=== PATIENT | female | born 1980 | race African-American/Black ===

== ENCOUNTER 2016-08-01 07:29 | Emergency (ER) | payer OTHER ==
[2016-08-01] MEDS ORDERED: ACETAMINOPHEN WITH CODEINE #3 TABLET PO ONE (08:48)
--- NOTE | 2016-08-01 08:48 | ER Document Report ---
ED General - General Chief Complaint: Back Pain Stated Complaint: SIDE PAIN Mode of Arrival: Ambulatory Information source: Patient Notes: 28-year-old female history of kidney stone presents with complaints of left flank pain rating to her abdomen down her leg. Patient denies any fevers chills nausea vomiting or diarrhea. Patient denies any urinary complaints. Patient notes this is similar to her previous kidney stone diagnosed in March which she states she has not passed TRAVEL OUTSIDE OF THE [place] IN LAST 30 DAYS: No - HPI Onset: Other - Three-day duration Onset/Duration: Sudden, Persistent Quality of pain: Sharp Severity: Mild Pain Level: 1 Associated symptoms: Other Exacerbated by: Denies Relieved by: Denies Similar symptoms previously: Yes Recently seen / treated by doctor: No - Related Data Allergies/Adverse Reactions: hydrocodone Allergy (Verified 08/01/16 07:32) tramadol Allergy (Verified 08/01/16 07:32) Past Medical History - General Information source: Patient - Social History Smoking Status: Never Smoker Cigarette use (# per day): No Chew tobacco use (# tins/day): No Smoking Education Provided: No Frequency of alcohol use: None Drug Abuse: None Family History: Reviewed & Not Pertinent Patient has suicidal ideation: No Patient has homicidal ideation: No - Past Medical History Cardiac Medical History: Reports: Hx Hypercholesterolemia, Hx Hypertension - Has been off medication for the past 7 months per her doctor's instructions Endocrine Medical History: Reports: Hx Diabetes Mellitus Type 2 Renal/ Medical History: Reports: Hx Kidney Stones Past Surgical History: Reports: Hx Cholecystectomy, Hx Gynecologic Surgery - Uterine ablation - Immunizations Hx Diphtheria, Pertussis, Tetanus Vaccination: Yes Review of Systems - Review of Systems Notes: REVIEW OF SYSTEMS: CONSTITUTIONAL : Denies fever, chills, or sweats. Denies recent illness. EENT: Denies eye, ear, throat, or mouth pain or symptoms. Denies nasal or sinus congestion or discharge. Denies throat, tongue, or mouth swelling or difficulty swallowing. CARDIOVASCULAR: Denies chest pain. Denies palpitations or racing or irregular heart beat. Denies ankle edema. RESPIRATORY: Denies cough, cold, or chest congestion. Denies shortness of breath, difficulty breathing, or wheezing. GASTROINTESTINAL: Admits to abdominal and flank pain GENITOURINARY: Denies difficulty urinating, painful urination, burning, frequency, blood in urine, or discharge. FEMALE GENITOURINARY: Denies vaginal bleeding, heavy or abnormal periods, irregular periods. Denies vaginal discharge or odor. MUSCULOSKELETAL: Denies back or neck pain or stiffness. Denies joint pain or swelling. SKIN: Denies rash, lesions or sores. HEMATOLOGIC : Denies easy bruising or bleeding. LYMPHATIC: Denies swollen, enlarged glands. NEUROLOGICAL: Denies confusion or altered mental status. Denies passing out or loss of consciousness. Denies dizziness or lightheadedness. Denies headache. Denies weakness or paralysis or loss of use of either side. Denies problems with gait or speech. Denies sensory loss, numbness, or tingling. Denies seizures. PSYCHIATRIC: Denies anxiety or stress. Denies depression, suicidal ideation, or homicidal ideation. ALL OTHER SYSTEMS REVIEWED AND NEGATIVE. Dictation was performed using [employer] voice recognition software PHYSICAL EXAMINATION: GENERAL: Well-appearing, well-nourished and in no acute distress. HEAD: Atraumatic, normocephalic. EYES: Pupils equal round and reactive to light, extraocular movements intact, conjunctiva are normal. ENT: Nares patent, oropharynx clear without exudates. Moist mucous membranes. NECK: Normal range of motion, supple without lymphadenopathy LUNGS: Breath sounds clear to auscultation bilaterally and equal. No wheezes rales or rhonchi. HEART: Tachycardic ABDOMEN: Soft, left CVA tenderness noted no rebound or guarding Female : deferred Musculoskeletal: Normal range of motion, no pitting or edema. No cyanosis. NEUROLOGICAL: Cranial nerves grossly intact. Normal speech, normal gait. Normal sensory, motor exams PSYCH: Normal mood, normal affect. SKIN: Warm, Dry, normal turgor, no rashes or lesions noted. Physical Exam - Vital signs Vitals: Temp Pulse Resp BP Pulse Ox 98.7 F 128 H 16 138/97 H 99 08/01/16 07:34 08/01/16 07:34 08/01/16 07:34 08/01/16 07:34 08/01/16 07:34 Course - Re-evaluation Re-evalutation: 08/01/16 08:48 Lab work imaging are pending at this time - Vital Signs Vital signs: Temp Pulse Resp BP Pulse Ox 98.0 F 104 H 18 124/67 99 08/01/16 09:58 08/01/16 09:58 08/01/16 09:58 08/01/16 09:58 08/01/16 09:58 - Laboratory Result Diagrams: 08/01/16 09:00 08/01/16 09:00 Laboratory results interpreted by me: 08/01/16 08/01/16 08/01/16 08:16 09:00 09:00 WBC 12.7 H Hgb 11.1 L Hct 34.3 L MCH 26.5 L RDW 14.8 H Absolute Neutrophils 9.5 H Glucose 156 H Urine Glucose (UA) >=500 H Urine Ketones 20 H Urine Blood MODERATE H Discharge - Discharge Clinical Impression: Kidney stone on left side, Flank pain Condition: Stable Disposition: HOME, SELF-CARE Instructions: Kidney Stone ([facility]) Prescriptions: Oxycodone HCl/Acetaminophen [Percocet 5-325 mg Tablet] 1 - 2 tab PO Q4H PRN #10 tablet PRN Reason: Tamsulosin HCl [Flomax 0.4 mg Cap.sr] 0.4 mg PO DAILY #7 cap.sr.24h Referrals: SONU GONZALES PA-C [Primary Care Provider] - Follow up as needed MADHU IBRAHIM MD [ACTIVE STAFF] - Follow up in 1 week
[2016-08-01 09:19] LABS: ABSOLUTE EOSINOPHILS # (AUTO) 0.1 10^3/uL (0.0-0.6); ABSOLUTE LYMPHOCYTES (AUTO) 2.4 10^3/uL (0.5-4.7); ABSOLUTE MONOCYTES (AUTO) 0.7 10^3/uL (0.1-1.4); ABSOLUTE NEUT (AUTO) 9.5 10^3/uL (1.7-8.2); BASOPHILS % (AUTO) 0.4 % (0-2); EOSINOPHILS % (AUTO) 0.9 % (0-6); HEMATOCRIT 34.3 % (36.0-47.0); HEMOGLOBIN 11.1 g/dL (12.0-15.5); LYMPHOCYTES % (AUTO) 18.9 % (13-45); MEAN CORPUSCULAR HEMOGLOBIN 26.5 pg (27.0-33.4); MEAN CORPUSCULAR HGB CONC 32.5 g/dL (32.0-36.0); MEAN CORPUSCULAR VOLUME 81 fl (80-97); MONOCYTES % (AUTO) 5.5 % (3-13); RED BLOOD COUNT 4.21 10^6/uL (3.72-5.28); RED CELL DISTRIBUTION WIDTH 14.8 % (11.5-14.0); SEGMENTED NEUTROPHILS % (AUTO) 74.3 % (42-78); WHITE BLOOD COUNT 12.7 10^3/uL (4.0-10.5)
[2016-08-01 09:29] LABS: APPEARANCE,URINE CLEAR; BILIRUBIN,URINE NEGATIVE (NEGATIVE); GLUCOSE, URINE >=500 mg/dL (NEGATIVE); KETONES,URINE 20 mg/dL (NEGATIVE); LEUKOCYTE ESTERASE,URINE NEGATIVE (NEGATIVE); NITRITE,URINE NEGATIVE (NEGATIVE); PROTEIN,URINE NEGATIVE (NEGATIVE); URINE SPECIFIC GRAVITY 1.045; UROBILINOGEN,URINE NEGATIVE mg/dL (<2.0)
[2016-08-01 09:41] LABS: ALANINE AMINOTRANSFERASE 34 U/L (9-52); ALBUMIN 4.4 g/dL (3.5-5.0); ALKALINE PHOSPHATASE 86 U/L (38-126); ANION GAP 16 (5-19); ASPARTATE AMINO TRANSFERASE 19 U/L (14-36); BILIRUBIN,TOTAL 0.4 mg/dL (0.2-1.3); BLOOD UREA NITROGEN 13 mg/dL (7-20); CALCIUM 9.7 mg/dL (8.4-10.2); CARBON DIOXIDE 25 mmol/L (22-30); CHLORIDE 101 mmol/L (98-107); CREATININE RESULT 0.82 mg/dL (0.52-1.25); GLUCOSE 156 mg/dL (75-110); LIPASE 76.7 U/L (23-300); POTASSIUM 3.8 mmol/L (3.6-5.0); SODIUM 142.1 mmol/L (137-145)
[2016-08-01 12:58] VITALS: BP 141/90
== END 2016-08-01 12:58 | disposition home or self-care (01) ==
LOC: ER 07:29
DX: N20.0 Calculus of kidney (principal); M54.9 Dorsalgia, unspecified; R10.9 Unspecified abdominal pain; E78.00 Pure hypercholesterolemia, unspecified; I10 Essential (primary) hypertension; E11.9 Type 2 diabetes mellitus without complications; Z87.442 Personal history of urinary calculi; Z88.6 Allergy status to analgesic agent
CPT/HCPCS: 36415; 76380; 80053; 81001; 81025; 83690; 85025; 99284

== ENCOUNTER 2016-09-06 16:26 | Emergency (ER) | payer OTHER ==
--- NOTE | 2016-09-06 17:12 | ER Document Report ---
ED Medical Screen (RME) - General Stated Complaint: FLANK PAIN Notes: 36 yo female c/o bilat flank pain x 3 days. + known kidney stone on left. no n /v. no fever. pain is nonradiating. no urinary frequency. TRAVEL OUTSIDE OF THE [place] IN LAST 30 DAYS: No - Related Data Allergies/Adverse Reactions: hydrocodone Allergy (Verified 08/01/16 07:32) tramadol Allergy (Verified 08/01/16 07:32) Past Medical History - Past Medical History Cardiac Medical History: Reports: Hx Hypercholesterolemia, Hx Hypertension - Has been off medication for the past 7 months per her doctor's instructions Endocrine Medical History: Reports: Hx Diabetes Mellitus Type 2 Renal/ Medical History: Reports: Hx Kidney Stones Past Surgical History: Reports: Hx Cholecystectomy, Hx Gynecologic Surgery - Uterine ablation - Immunizations Hx Diphtheria, Pertussis, Tetanus Vaccination: Yes Physical Exam - Vital signs Vitals: Temp Pulse Resp BP Pulse Ox 97.9 F 98 20 154/98 H 98 09/06/16 17:07 09/06/16 17:07 09/06/16 17:07 09/06/16 17:07 09/06/16 17:07 Course - Vital Signs Vital signs: Temp Pulse Resp BP Pulse Ox 97.9 F 98 20 154/98 H 98 09/06/16 17:07 09/06/16 17:07 09/06/16 17:07 09/06/16 17:07 09/06/16 17:07
[2016-09-06 17:43] LABS: ABSOLUTE EOSINOPHILS # (AUTO) 0.2 10^3/uL (0.0-0.6); ABSOLUTE LYMPHOCYTES (AUTO) 3.4 10^3/uL (0.5-4.7); ABSOLUTE MONOCYTES (AUTO) 0.9 10^3/uL (0.1-1.4); ABSOLUTE NEUT (AUTO) 9.3 10^3/uL (1.7-8.2); BASOPHILS % (AUTO) 0.3 % (0-2); EOSINOPHILS % (AUTO) 1.4 % (0-6); HEMATOCRIT 31.1 % (36.0-47.0); HEMOGLOBIN 9.8 g/dL (12.0-15.5); HGB HCT DIFFERENCE -1.7; LYMPHOCYTES % (AUTO) 24.2 % (13-45); MEAN CORPUSCULAR HEMOGLOBIN 24.8 pg (27.0-33.4); MEAN CORPUSCULAR HGB CONC 31.4 g/dL (32.0-36.0); MEAN CORPUSCULAR VOLUME 79 fl (80-97); MONOCYTES % (AUTO) 6.8 % (3-13); RED BLOOD COUNT 3.93 10^6/uL (3.72-5.28); RED CELL DISTRIBUTION WIDTH 15.1 % (11.5-14.0); SEGMENTED NEUTROPHILS % (AUTO) 67.3 % (42-78); WHITE BLOOD COUNT 13.8 10^3/uL (4.0-10.5)
[2016-09-06 17:52] LABS: APPEARANCE,URINE CLEAR; BILIRUBIN,URINE NEGATIVE (NEGATIVE); GLUCOSE, URINE >=500 mg/dL (NEGATIVE); KETONES,URINE NEGATIVE (NEGATIVE); LEUKOCYTE ESTERASE,URINE NEGATIVE (NEGATIVE); NITRITE,URINE NEGATIVE (NEGATIVE); PROTEIN,URINE NEGATIVE (NEGATIVE); URINE SPECIFIC GRAVITY 1.032; UROBILINOGEN,URINE NEGATIVE mg/dL (<2.0)
[2016-09-06 18:06] LABS: ALANINE AMINOTRANSFERASE 25 U/L (9-52); ALBUMIN 4.8 g/dL (3.5-5.0); ALKALINE PHOSPHATASE 88 U/L (38-126); ANION GAP 11 (5-19); ASPARTATE AMINO TRANSFERASE 18 U/L (14-36); BILIRUBIN,TOTAL 0.4 mg/dL (0.2-1.3); BLOOD UREA NITROGEN 13 mg/dL (7-20); CARBON DIOXIDE 27 mmol/L (22-30); CHLORIDE 103 mmol/L (98-107); CREATININE RESULT 0.85 mg/dL (0.52-1.25); GLUCOSE 96 mg/dL (75-110); POTASSIUM 4.3 mmol/L (3.6-5.0); SODIUM 141.4 mmol/L (137-145); TOTAL PROTEIN 8.1 g/dL (6.3-8.2)
[2016-09-06] MEDS ORDERED: OXYCODONE-ACETAMINOPHEN 5-325 MG TABLET PO ONE (19:55)
--- NOTE | 2016-09-06 19:55 | ER Document Report ---
ED General - General Chief Complaint: Flank Pain Stated Complaint: FLANK PAIN Mode of Arrival: Ambulatory Information source: Patient Notes: Patient presents to the emergency department with complaints of bilateral flank pain for the past 3 days worse today. Denies fever vomiting diarrhea. Reports history of kidney stones. Reports she followed up with urologist in [place] in May and has not followed up since. She denies pain with void. She denies vaginal discharge. Patient reports she is currently taking amoxicillin for strep infection. She was seen here in July diagnosed with kidney stones. TRAVEL OUTSIDE OF THE [place] IN LAST 30 DAYS: No - HPI Onset: Other - 3 days Onset/Duration: Persistent Quality of pain: Achy, Pressure Severity: Severe Pain Level: 4 Associated symptoms: None Exacerbated by: Denies Relieved by: Denies Similar symptoms previously: Yes Recently seen / treated by doctor: No - Related Data Allergies/Adverse Reactions: hydrocodone Allergy (Verified 09/06/16 17:12) tramadol Allergy (Verified 09/06/16 17:12) Past Medical History - General Information source: Patient Last Menstrual Period: 08/29/16 - Social History Smoking Status: Never Smoker Chew tobacco use (# tins/day): No Frequency of alcohol use: None Drug Abuse: None Occupation: correction Lives with: Family Family History: Reviewed & Not Pertinent Patient has suicidal ideation: No Patient has homicidal ideation: No - Past Medical History Cardiac Medical History: Reports: Hx Hypercholesterolemia, Hx Hypertension - Has been off medication for the past 7 months per her doctor's instructions Endocrine Medical History: Reports: Hx Diabetes Mellitus Type 2 Renal/ Medical History: Reports: Hx Kidney Stones. Denies: Hx Peritoneal Dialysis Past Surgical History: Reports: Hx Cholecystectomy, Hx Gynecologic Surgery - Uterine ablation - Immunizations Hx Diphtheria, Pertussis, Tetanus Vaccination: Yes Review of Systems - Review of Systems Notes: Review HPI for review of systems., All other systems negative Physical Exam - Vital signs Vitals: Temp Pulse Resp BP Pulse Ox 97.9 F 98 20 154/98 H 98 09/06/16 17:07 09/06/16 17:07 09/06/16 17:07 09/06/16 17:07 09/06/16 17:07 - Notes Notes: PHYSICAL EXAMINATION: GENERAL: tearful HEAD: Atraumatic, normocephalic. EYES: Pupils equal round extraocular movements intact, sclera anicteric, conjunctiva are normal. ENT: nares patent, . Moist mucous membranes. NECK: Normal range of motion, supple without lymphadenopathy LUNGS: CTAB and equal. No wheezes rales or rhonchi. HEART: Regular rate and rhythm without murmurs BACK: Bilateral flank pain ABDOMEN: Soft, no tenderness. No guarding, no rebound EXTREMITIES: Normal range of motion, no pitting edema. No cyanosis. NEUROLOGICAL: Cranial nerves grossly intact. Normal sensory/motor PSYCH: Normal mood, normal affect. SKIN: Warm, Dry, normal turgor, no rashes or lesions noted Course - Re-evaluation Re-evalutation: 09/06/16 20:17 Dr. Smith the urologist was called. He agreed to see patient in am. Pt and allison updated on plan of care importance of fu. 09/06/16 20:21 wbc 13.8, h/h=9.8/31.1 patient reports hx anemia. Will treat patient with Cipro and Flomax Percocet for the pain and Diflucan because history of yeast infections with antibiotics. Patient and her were instructed on anemia, encouraged to discuss this with her provider and start taking iron - Vital Signs Vital signs: Temp Pulse Resp BP Pulse Ox 97.9 F 98 20 154/98 H 98 09/06/16 17:07 09/06/16 17:07 09/06/16 17:07 09/06/16 17:07 09/06/16 17:07 - Laboratory Result Diagrams: 09/06/16 17:25 09/06/16 17:25 Laboratory results interpreted by me: 09/06/16 09/06/16 17:25 17:30 WBC 13.8 H Hgb 9.8 L Hct 31.1 L MCV 79 L MCH 24.8 L MCHC 31.4 L RDW 15.1 H Plt Count 476 H Absolute Neutrophils 9.3 H Urine Glucose (UA) >=500 H Urine Blood SMALL H - Diagnostic Test Radiology reviewed: Reports reviewed - Kidney stones noted from 08/01/2016 Discharge - Discharge Clinical Impression: Flank pain, History of kidney stones, Elevated blood pressure reading Condition: Stable Disposition: HOME, SELF-CARE Instructions: Flomax ([facility]), Flank Pain ([facility]), Oral Narcotic Medication ([facility]), Kidney Stone ([facility]), Ciprofloxacin ([facility]) Additional Instructions: *You have been evaluated for bilateral flank pain, history of kidney stones *Monitor your blood pressure. Your blood pressure was elevated today. This may be because you were anxious, in pain or because you need medication. It is important to follow up with your primary care provider for full evaluation. *Take medication as prescribed *Follow up with the urologist tomorrow morning, call the clinic at 0800 *Return to ED for worsening condition, changes, needs *Return to ED if not better in 24 hours Prescriptions: Ciprofloxacin HCl [Cipro 500 mg Tablet] 500 mg PO BID #10 tablet Fluconazole [Diflucan 100 Mg Tablet] 100 mg PO DAILY #1 tablet Oxycodone HCl/Acetaminophen [Percocet 5-325 mg Tablet] 1 tab PO ASDIR PRN #15 tab PRN Reason: Tamsulosin HCl [Flomax 0.4 mg Cap.sr] 0.4 mg PO DAILY #7 cap.sr.24h Forms: Elevated Blood Pressure, Return to Work Referrals: DAWOOD SMITH MD [SANDRA ZARAGOZA] - Follow up tomorrow (call for appointment at 0800. Remind office this is an ED follow up appointment)
[2016-09-06] MEDS ORDERED: TAMSULOSIN HCL 0.4 MG CAP.SR.24H PO ONE (20:06)
[2016-09-06 20:53] VITALS: BP 146/80
== END 2016-09-06 20:48 | disposition home or self-care (01) ==
LOC: ER 16:26
DX: R10.9 Unspecified abdominal pain (principal); Z87.442 Personal history of urinary calculi; A49.1 Streptococcal infection, unspecified site; I10 Essential (primary) hypertension; E11.9 Type 2 diabetes mellitus without complications; Z88.5 Allergy status to narcotic agent; Z90.49 Acquired absence of other specified parts of digestive tract
CPT/HCPCS: 36415; 80053; 81001; 84703; 85025; 99284

== ENCOUNTER → 2016-09-08 | Outpatient (CLI) | payer OTHER | LOC: RAD 14:03 | PROVIDERS: ATTEND Urology | DX: N20.0 Calculus of kidney (principal) | CPT/HCPCS: 74176 ==

== ENCOUNTER 2016-09-29 05:19 | Day surgery (SDC) | payer OTHER ==
[2016-09-27 13:59] LABS: HEMOGLOBIN 10.7 g/dL (12.0-15.5); HGB HCT DIFFERENCE -1.9; MEAN CORPUSCULAR HEMOGLOBIN 24.6 pg (27.0-33.4); MEAN CORPUSCULAR HGB CONC 31.3 g/dL (32.0-36.0); MEAN CORPUSCULAR VOLUME 79 fl (80-97); RED BLOOD COUNT 4.34 10^6/uL (3.72-5.28); RED CELL DISTRIBUTION WIDTH 16.1 % (11.5-14.0); WHITE BLOOD COUNT 8.4 10^3/uL (4.0-10.5)
[2016-09-27 14:11] LABS: APPEARANCE,URINE CLEAR; BILIRUBIN,URINE NEGATIVE (NEGATIVE); GLUCOSE, URINE >=500 mg/dL (NEGATIVE); KETONES,URINE NEGATIVE (NEGATIVE); LEUKOCYTE ESTERASE,URINE NEGATIVE (NEGATIVE); NITRITE,URINE NEGATIVE (NEGATIVE); PROTEIN,URINE NEGATIVE (NEGATIVE); UROBILINOGEN,URINE NEGATIVE mg/dL (<2.0)
[2016-09-27 14:14] LABS: ALANINE AMINOTRANSFERASE 19 U/L (9-52); ALBUMIN 4.6 g/dL (3.5-5.0); ALKALINE PHOSPHATASE 104 U/L (38-126); ANION GAP 14 (5-19); ASPARTATE AMINO TRANSFERASE 16 U/L (14-36); BILIRUBIN,TOTAL 0.4 mg/dL (0.2-1.3); BLOOD UREA NITROGEN 10 mg/dL (7-20); CARBON DIOXIDE 26 mmol/L (22-30); CHLORIDE 101 mmol/L (98-107); CREATININE RESULT 0.81 mg/dL (0.52-1.25); GLUCOSE 109 mg/dL (75-110); POTASSIUM 4.7 mmol/L (3.6-5.0); SODIUM 140.5 mmol/L (137-145)
--- NOTE | 2016-09-27 20:33 | EKG REPORT ---
SEVERITY:- NORMAL ECG - SINUS RHYTHM : Confirmed by: Jj Samuel MD 27-Sep-2016 20:32:27
[~2016-09-29 05:19] MED LIST: CEFAZOLIN 2 GM/D5W RTU 2 GM/50 ML RTUPB IV PRN; LACTATED RINGERS 1000 ML IV PRN; LIDOCAINE 0.5% INJ-PF (5 MG/ML) 50 ML SDV SUBCUT PRN
[2016-09-29] MEDS ORDERED: FENTANYL CITRATE INJ/PF 250 MCG/5 ML AMPULE ONE (07:21)
[2016-09-29] MEDS ORDERED: MIDAZOLAM 2 MG/2 ML INJ ONE (07:21)
[2016-09-29] MEDS ORDERED: MORPHINE SULFATE 10 MG/ML INJ ONE ×2 (07:22→12:54)
[2016-09-29] MEDS ORDERED: ACETAMINOPHEN 100 ML IV ONE ×2 (07:22→16:00)
[2016-09-29] MEDS ORDERED: PROPOFOL INJ 200 MG/20 ML VIAL IV ONE (07:22)
[2016-09-29] MEDS ORDERED: DEXMEDETOMIDINE INJ 80 MCG/20 ML VIAL IV ONE (09:45)
[2016-09-29] MEDS ORDERED: KETOROLAC TROMETHAMINE 60 MG/2 ML SDV ONE (10:21)
[2016-09-29] MEDS ORDERED: NEOSTIGMINE METHYLSULFATE 10 MG/10 ML VIAL ONE (10:21)
[2016-09-29] MEDS ORDERED: ONDANSETRON HCL INJ/PF 4 MG/2 ML SDV ONE (10:21)
[2016-09-29] MEDS ORDERED: ROCURONIUM BROMIDE INJ 50 MG/5 ML VIAL IV ONE (10:21)
[2016-09-29] MEDS ORDERED: LIDOCAINE 2% INJ-PF (20 MG/ML) 10 ML AMPUL ONE (10:21)
[2016-09-29] MEDS ORDERED: GLYCOPYRROLATE INJ 0.4 MG/2 ML VIAL ONE (10:21)
[2016-09-29] MEDS ORDERED: SUCCINYLCHOLINE CHLORIDE INJ 200 MG/10 ML VIAL ONE (10:21)
[2016-09-29] MEDS ORDERED: DEXAMETHASONE SOD PHOSPHATE INJ 4 MG/1 ML VIAL ONE (10:21)
[2016-09-29] MEDS ORDERED: DIPHENHYDRAMINE HCL 50 MG/ML VIAL IV PRN (11:56)
[2016-09-29] MEDS ORDERED: PROMETHAZINE HCL INJ 25 MG/1 ML VIAL IV PRN ×2 (11:56)
[2016-09-29] MEDS ORDERED: OXYCODONE-ACETAMINOPHEN 5-325 MG TABLET PO PRN ×3 (11:56→12:49)
[2016-09-29] MEDS ORDERED: MEPERIDINE HCL/PF INJ 25 MG/1 ML DISP.SYRIN IV PRN (11:56)
[2016-09-29] MEDS ORDERED: MORPHINE SULFATE 10 MG/ML INJ IV PRN (11:56)
[2016-09-29] MEDS ORDERED: FENTANYL CITRATE INJ/PF 100 MCG/2 ML AMPUL IV PRN ×3 (11:56)
[2016-09-29] MEDS: FENTANYL CITRATE INJ/PF 100 MCG/2 ML AMPUL ONE ×2 (12:17→12:22)
[2016-09-29] MEDS ORDERED: NORMAL SALINE 1000 ML 1,000 ML IV PRN (12:46)
[2016-09-29] MEDS: KETOROLAC TROMETHAMINE INJ/PF 30 MG/1 ML SDV IV SCH ×2 (13:55→22:27)
[2016-09-29] MEDS: MORPHINE SULFATE 10 MG/ML INJ IV PRN ×2 (15:53→19:38)
[2016-09-29] MEDS: METFORMIN HCL 500 MG TABLET PO SCH (19:09)
[2016-09-30] MEDS: OXYCODONE-ACETAMINOPHEN 5-325 MG TABLET PO PRN ×2 (01:13→08:08)
[2016-09-30] MEDS: MORPHINE SULFATE 10 MG/ML INJ IV PRN (02:15)
[2016-09-30 05:55] LABS: HEMATOCRIT 25.8 % (36.0-47.0); HGB HCT DIFFERENCE -1.8; MEAN CORPUSCULAR HEMOGLOBIN 24.1 pg (27.0-33.4); MEAN CORPUSCULAR HGB CONC 30.8 g/dL (32.0-36.0); MEAN CORPUSCULAR VOLUME 78 fl (80-97); RED CELL DISTRIBUTION WIDTH 15.6 % (11.5-14.0)
[2016-09-30 07:06] LABS: WHITE BLOOD COUNT 18.2 10^3/uL (4.0-10.5)
[2016-09-30 09:20] VITALS: BP 143/83
[2016-09-30] MEDS: METFORMIN HCL 500 MG TABLET PO SCH (09:49)
[2016-09-30] MEDS ORDERED: (PENDING PHARMACY ID) (Canagliflozin [Invokana] 100 MG) PO SCH (10:00)
[2016-09-30] MEDS ORDERED: GLYBURIDE 5 MG TABLET PO SCH (10:00)
--- NOTE | 2016-09-30 10:02 | PDOC DISCHARGE SUMMARY ---
General - Admit/Disc Date/PCP Admission Date/Primary Care Provider: SONU GONZALES PA-C Discharge Date: 09/30/16 - Discharge Diagnosis (1) Abnormal uterine and vaginal bleeding, unspecified Is this a current diagnosis for this admission?: Yes (2) Pelvic pain Is this a current diagnosis for this admission?: Yes (3) Anemia Is this a current diagnosis for this admission?: Yes (4) Diabetes 1.5, managed as type 2 Is this a current diagnosis for this admission?: Yes - Additional Information Home Medications: Canagliflozin [Invokana] 1 tab PO DAILY 09/30/16 Glyburide [Diabeta 5 mg Tablet] 5 mg PO DAILY 09/30/16 Metformin HCl [Glucophage] 500 mg PO BID 09/30/16 History of Present Illness History of Present Illness: GEGE DOSS is a 36 year old female Hospital Course Hospital Course: s/p RATLH w/ B/L Salpingectomy. doing well. Having normal Post Op pain. voiding well, flatus. Physical Exam - Physical Exam Vital Signs: Temp Pulse Resp BP Pulse Ox 98.4 F 115 H 18 143/83 H 100 09/30/16 08:00 09/30/16 08:00 09/30/16 08:00 09/30/16 08:00 09/30/16 08:00 Intake & Output 09/29/16 09/30/16 10/01/16 06:59 06:59 06:59 Intake Total 0 2570 Output Total 1800 Balance 0 770 General appearance: PRESENT: no acute distress GI/Abdominal exam: PRESENT: normal bowel sounds, soft, tenderness - normal post op tenderness, incisions Result Laboratory Results: 09/30/16 05:34 09/27/16 12:50 09/30/16 05:34 WBC 18.2 H D RBC 3.30 L Hgb 8.0 L D Hct 25.8 L MCV 78 L MCH 24.1 L MCHC 30.8 L RDW 15.6 H Plt Count 393 Impressions: Chest X-Ray 09/27/16 13:11 IMPRESSION: NO SIGNIFICANT RADIOGRAPHIC FINDING IN THE CHEST. Plan Discharge Plan: discharge home with instructions for pain control and strict fever precautions. Advised may take 1-2 percocets q 4-6 hrs prn pain Time Spent: Less than 30 Minutes
[2016-09-30] MEDS ORDERED: IBUPROFEN 800 MG TABLET PO PRN (12:00)
--- NOTE | 2016-11-21 16:04 | OPERATIVE REPORT E ---
Operative Report NAME: GEGE DOSS : 1980 AGE: 36Y DATE OF SURGERY: ROOM: 207 PREOPERATIVE DIAGNOSES: ABNORMAL UTERINE BLEEDING, DYSMENORRHEA AND ANEMIA. POSTOPERATIVE DIAGNOSES: ABNORMAL UTERINE BLEEDING, DYSMENORRHEA AND ANEMIA. OPERATION: Robotic-assisted total laparoscopic hysterectomy with bilateral salpingectomy and lysis of adhesions. SURGEON: VALENTINA MENENDEZ M.D. ANESTHESIA: Dr. Adair with general. FINDINGS: Large 14-week size uterus with normal ovaries. Ureters were intact at the end of the procedure, verified by cystoscopy. COMPLICATIONS: None. ESTIMATED BLOOD LOSS: 150 mL. SPECIMENS REMOVED: Uterus and bilateral fallopian tubes. PROCEDURE: The patient was taken to the operating room, prepared and draped in a normal sterile fashion in dorsal lithotomy position. Under sterile conditions, a Lim catheter was placed to gravity. A sterile speculum was placed in the vagina and the cervix was grasped on the anterior lip with a single tooth tenaculum and prepped with Betadine. The cervix was then dilated to accommodate a medium VCare uterine manipulator which was placed without difficulty. Gloves were changed and attention was then turned to the upper portion of the case. The umbilical skin incision was made with a scalpel and carried through to the underlying layer of fascia using a cut down method to accommodate the GelPOINT. The GelPOINT was placed without difficulty and the abdomen was insufflated with approximately 2 L of CO2 gas through the GelPOINT using the AirSeal assistance. The camera was then introduced through the GelPOINT and under direct visualization, two 5-mm ports were placed approximately 10 cm on either side of the umbilicus for the robotic instrument to be accommodated. Lysis of adhesions was noted to be necessary and this was performed with the robot once it was docked. At this time, we did go ahead and dock the robot and began the lysis of adhesions of the omentum to the anterior abdominal wall and this was done with good hemostasis and no complications. Once the adhesions were down, the attention was then turned to the hysterectomy portion of the case. The left fallopian tube was grasped and transected from the ovary using the monopolar scissors and then released from the corpus of the uterine fundus using the vessel sealer. Using the vessel sealer, the utero-ovarian ligament was then transected and the uterine artery was skeletonized and dropped away using the vessel sealer as well to the level of the internal cervical os. This was repeated on the left fallopian tube without difficulty. The continued skeletonization and transection of the uterine arteries was completed with the vessel sealer until we were at the level of the external cervical os and the bladder flap was completed using monopolar scissors and blunt dissection. The colpotomy was then begun using the monopolar scissors and performed circumferentially around the cervix until the specimen was completely freed. The specimen was then removed through the vagina. The vaginal cuff was then closed with a V-Loc suture using a Derrick needle tractor trailer moving van driver and ProGrasp. The ureters were inspected and found to be peristalsing normally. A cystoscopy was performed in order to confirm free flow of urine through the ureters and this was confirmed without difficulty. The fascial incision at the umbilicus was then closed using 0 Vicryl on a UR-6 needle. The skin was then closed with 4-0 Vicryl at all 3 sites. The patient tolerated the procedure well. Sponge, lap and needle counts were correct x2. The patient was taken to recovery in stable condition. DICTATING PHYSICIAN: VALENTINA MENENDEZ M.D. [id number] PHY#: [id number] ID: [id number] JOB#: [id number] ACCT: [id number] cc:VALENTINA MENENDEZ M.D. >
== END 2016-09-30 11:45 | disposition home or self-care (01) ==
LOC: OROUT 05:19 → 2N 13:35 → OROUT 09-30 11:45
PROVIDERS: ATTEND Obstetrics & Gynecology
PROC: 0UTC4ZZ Resection of Cervix, Percutaneous Endoscopic Approach (ICD-10-PCS; 2016-09-29)
PROC: 0UT74ZZ Resection of Bilateral Fallopian Tubes, Percutaneous Endoscopic Approach (ICD-10-PCS; 2016-09-29)
PROC: 8E0W4CZ Robotic Assisted Procedure of Trunk Region, Percutaneous Endoscopic Approach (ICD-10-PCS; 2016-09-29)
PROC: 0UT94ZZ Resection of Uterus, Percutaneous Endoscopic Approach (ICD-10-PCS; principal; 2016-09-29 07:30)
DX: N92.0 Excessive and frequent menstruation with regular cycle (principal); N94.6 Dysmenorrhea, unspecified; N72 Inflammatory disease of cervix uteri; N80.0 Endometriosis of uterus; K66.0 Peritoneal adhesions (postprocedural) (postinfection); D64.9 Anemia, unspecified; I10 Essential (primary) hypertension; E11.9 Type 2 diabetes mellitus without complications; Z79.899 Other long term (current) drug therapy; Z88.5 Allergy status to narcotic agent; Z79.84 Long term (current) use of oral hypoglycemic drugs
CPT/HCPCS: 58573; S2900; 36415; 71020; 80053; 81001; 81025; 82962; 83036; 85027; 86850; 86900; 86901; 88307; 93005; 93010; 944; A6240; J0131; J0330; J0690; J1100; J1885; J2250; J2270; J2405; J2704; J3010; J3490

== ENCOUNTER → 2017-10-24 | Outpatient (CLI) | payer OTHER ==
--- NOTE | 2017-10-25 10:19 | RADIOLOGY REPORT (SQ) ---
EXAM DESCRIPTION: ANKLE RIGHT COMPLETE COMPLETED DATE/TIME: 10/24/2017 7:06 pm REASON FOR STUDY: ACUTE RIGHT ANKLE PAIN COMPARISON: None. NUMBER OF VIEWS: Three views. TECHNIQUE: AP, lateral, and oblique radiographic images acquired of the right ankle. LIMITATIONS: None. FINDINGS: MINERALIZATION: Normal. BONES: No acute fracture or dislocation. No worrisome bone lesions. Small plantar calcaneal spur JOINTS: No tibiotalar joint effusion. No disruption of the ankle mortise. SOFT TISSUES: Lateral soft tissue swelling. No foreign body. OTHER: No other significant finding. IMPRESSION: Lateral soft tissue swelling. No acute fracture, or disruption of the ankle mortise. TECHNICAL DOCUMENTATION: JOB ID: [id number] [employer]- All Rights Reserved Reading location - IP/workstation name: [email or web address]
== END ==
LOC: RAD 18:26
PROVIDERS: ATTEND Nurse Practitioner Family
DX: M25.571 Pain in right ankle and joints of right foot (principal)

== ENCOUNTER 2017-11-25 13:51 | Inpatient (IN) | payer OTHER, BC ==
--- NOTE | 2017-11-25 15:45 | ER Document Report ---
ED Medical Screen (RME) - General Chief Complaint: Passed Out Prior to Arrival Stated Complaint: SHOULDER PAIN Time Seen by Provider: 11/25/17 15:44 Notes: Patient says that she passed out today. She was reaching for a shoe box on a shelf in her closet and she noted her heart started racing and beating very hard. She became dizzy and then awakened on the floor where she had fallen and hit her head and shoulder against the wall, punching a hole in the wall. She says she has some pain in the left neck and shoulder now although she does not think there is any broken bones. She did not have a headache before the episode nor after. She did not have any chest pain before the episode nor after. She has been nauseated but not vomiting. Has not been sick recently. No fevers. PMH: NIDDM. TRAVEL OUTSIDE OF THE [place] IN LAST 30 DAYS: No - Related Data Allergies/Adverse Reactions: hydrocodone Allergy (Verified 11/25/17 13:52) tramadol Allergy (Verified 11/25/17 13:52) Past Medical History - Social History Chew tobacco use (# tins/day): No Frequency of alcohol use: None Drug Abuse: None - Past Medical History Cardiac Medical History: Reports: Hx Hypercholesterolemia Denies: Hx Atrial Fibrillation, Hx Congestive Heart Failure, Hx Coronary Artery Disease, Hx Heart Attack, Hx Hypertension, Hx Peripheral Vascular Disease , Hx Heart Murmur Pulmonary Medical History: Neurological Medical History: Denies: Hx Cerebrovascular Accident, Hx Seizures Endocrine Medical History: Reports: Hx Diabetes Mellitus Type 2. Denies: Hx Graves' Disease, Hx Hyperthyroidism, Hx Hypothyroidism Renal/ Medical History: Reports: Hx Kidney Stones. Denies: Hx End Stage Renal Disease, Hx Ovarian Cysts, Hx Peritoneal Dialysis, Hx Pelvic Inflammatory Disease Malignancy Medical History: Denies: Hx Breast Cancer, Hx Cervical Cancer, Hx Leukemia, Hx Ovarian Cancer GI Medical History: Denies: Hx Crohn's Disease, Hx Gastroesophageal Reflux Disease, Hx Hiatal Hernia, Hx Irritable Bowel, Hx Liver Failure, Hx Pancreatitis , Hx Ulcer Musculoskeltal Medical History: Denies Hx Multiple Sclerosis Psychiatric Medical History: Denies: Hx Dementia Infectious Medical History: Denies: Hx HIV Past Surgical History: Reports: Hx Cholecystectomy, Hx Gynecologic Surgery - Uterine ablation. Denies: Hx Appendectomy, Hx Bowel Surgery, Hx Section, Hx Colostomy, Hx Coronary Artery Bypass Graft, Hx Gastric Bypass Surgery, Hx Herniorrhaphy, Hx Hysterectomy, Hx Mastectomy, Hx Pacemaker, Hx Tonsillectomy, Hx Tubal Ligation - Immunizations Hx Diphtheria, Pertussis, Tetanus Vaccination: Yes
[2017-11-25] MEDS ORDERED: NORMAL SALINE 1000 ML 1,000 ML IV ONE (16:27)
--- NOTE | 2017-11-25 16:30 | ER Document Report ---
ED General - General Chief Complaint: Passed Out Prior to Arrival Stated Complaint: SHOULDER PAIN Time Seen by Provider: 11/25/17 15:44 Mode of Arrival: Ambulatory Information source: Patient, Relative Notes: 37-year-old female with a history of type 2 diabetes presents after a syncopal episode at home. Patient states that she was in her closet reaching for a shoe box when she had an episode of palpitations, chest discomfort and then awoke on the floor. Patient states that she struck her head and shoulder against the wall. She does admit to 3 days of diarrhea. She states she has had more than 10 episodes per day of nonbloody diarrhea. She denies any recent travel, recent antibiotic use, recent admissions. She denies any prior similar symptoms. TRAVEL OUTSIDE OF THE [place] IN LAST 30 DAYS: No - Related Data Allergies/Adverse Reactions: hydrocodone Allergy (Verified 11/25/17 13:52) tramadol Allergy (Verified 11/25/17 13:52) Past Medical History - General Information source: Patient - Social History Smoking Status: Never Smoker Chew tobacco use (# tins/day): No Frequency of alcohol use: None Drug Abuse: None Family History: Reviewed & Not Pertinent Patient has suicidal ideation: No Patient has homicidal ideation: No - Past Medical History Cardiac Medical History: Reports: Hx Hypercholesterolemia Denies: Hx Atrial Fibrillation, Hx Congestive Heart Failure, Hx Coronary Artery Disease, Hx Heart Attack, Hx Hypertension, Hx Peripheral Vascular Disease , Hx Heart Murmur Pulmonary Medical History: Neurological Medical History: Denies: Hx Cerebrovascular Accident, Hx Seizures Endocrine Medical History: Reports: Hx Diabetes Mellitus Type 2. Denies: Hx Graves' Disease, Hx Hyperthyroidism, Hx Hypothyroidism Renal/ Medical History: Reports: Hx Kidney Stones. Denies: Hx End Stage Renal Disease, Hx Ovarian Cysts, Hx Peritoneal Dialysis, Hx Pelvic Inflammatory Disease Malignancy Medical History: Denies: Hx Breast Cancer, Hx Cervical Cancer, Hx Leukemia, Hx Ovarian Cancer GI Medical History: Denies: Hx Crohn's Disease, Hx Gastroesophageal Reflux Disease, Hx Hiatal Hernia, Hx Irritable Bowel, Hx Liver Failure, Hx Pancreatitis , Hx Ulcer Musculoskeltal Medical History: Denies Hx Multiple Sclerosis Psychiatric Medical History: Denies: Hx Dementia Infectious Medical History: Denies: Hx HIV Past Surgical History: Reports: Hx Cholecystectomy, Hx Gynecologic Surgery - Uterine ablation. Denies: Hx Appendectomy, Hx Bowel Surgery, Hx Section, Hx Colostomy, Hx Coronary Artery Bypass Graft, Hx Gastric Bypass Surgery, Hx Herniorrhaphy, Hx Hysterectomy, Hx Mastectomy, Hx Pacemaker, Hx Tonsillectomy, Hx Tubal Ligation - Immunizations Hx Diphtheria, Pertussis, Tetanus Vaccination: Yes Review of Systems - Review of Systems Notes: Patient denies fever, chills, nausea, vomiting, headache, ear pain, sore throat , cough, shortness of breath, abdominal pain, back pain, dysuria, hematuria, rash, SI/HI. Physical Exam - Vital signs Vitals: Resp BP Pulse Ox 16 162/106 H 99 11/25/17 16:25 11/25/17 16:25 11/25/17 16:25 Interpretation: Normal Notes: PHYSICAL EXAMINATION: GENERAL: Well-appearing, well-nourished and in no acute distress. HEAD: Atraumatic, normocephalic. EYES: Pupils equal round and reactive to light, extraocular movements intact, conjunctiva are normal. ENT: Nares patent, oropharynx clear without exudates. Moist mucous membranes. NECK: Normal range of motion, supple without lymphadenopathy LUNGS: Breath sounds clear to auscultation bilaterally and equal. No wheezes rales or rhonchi. HEART: Regular rate and rhythm without murmurs ABDOMEN: Soft, nontender, nondistended abdomen. No guarding, no rebound. No masses appreciated. Female : deferred Musculoskeletal: Normal range of motion, no pitting or edema. No cyanosis. NEUROLOGICAL: Cranial nerves grossly intact. Normal speech, normal gait. Normal sensory, motor exams PSYCH: Normal mood, normal affect. SKIN: Warm, Dry, normal turgor, no rashes or lesions noted. Course - Re-evaluation Re-evalutation: Laboratory 11/25/17 11/25/17 11/25/17 16:10 16:37 16:37 WBC 12.1 H RBC 4.76 Hgb 13.0 Hct 39.9 MCV 84 MCH 27.3 MCHC 32.6 RDW 15.1 H Plt Count 392 Seg Neutrophils % 69.3 Lymphocytes % 21.6 Monocytes % 6.0 Eosinophils % 2.4 Basophils % 0.7 Absolute Neutrophils 8.4 H Absolute Lymphocytes 2.6 Absolute Monocytes 0.7 Absolute Eosinophils 0.3 Absolute Basophils 0.1 Sodium 141.1 Potassium 4.0 Chloride 100 Carbon Dioxide 29 Anion Gap 12 BUN 12 Creatinine 0.73 Est GFR ( Amer) > 60 Est GFR (Non-Af Amer) > 60 Glucose 246 H Calcium 10.1 Magnesium 1.7 Total Bilirubin 0.3 Direct Bilirubin 0.3 Neonat Total Bilirubin Not Reportable Neonat Direct Bilirubin Not Reportable Neonat Indirect Bili Not Reportable AST 25 ALT 27 Alkaline Phosphatase 124 Creatine Kinase 156 H CK-MB (CK-2) Troponin I Total Protein 8.7 H Albumin 4.9 Urine Color YELLOW Urine Appearance CLEAR Urine pH 6.0 Ur Specific [place] 1.026 Urine Protein NEGATIVE Urine Glucose (UA) >=500 H Urine Ketones TRACE H Urine Blood NEGATIVE Urine Nitrite NEGATIVE Urine Bilirubin NEGATIVE Urine Urobilinogen NEGATIVE Ur Leukocyte Esterase NEGATIVE Urine WBC (Auto) 4 Urine RBC (Auto) 1 Squamous Epi Cells Auto 1 Urine Mucus (Auto) RARE Urine Ascorbic Acid NEGATIVE Urine HCG, Qual NEGATIVE 11/25/17 11/25/17 11/25/17 16:37 19:36 22:05 WBC RBC Hgb Hct MCV MCH MCHC RDW Plt Count Seg Neutrophils % Lymphocytes % Monocytes % Eosinophils % Basophils % Absolute Neutrophils Absolute Lymphocytes Absolute Monocytes Absolute Eosinophils Absolute Basophils Sodium Potassium Chloride Carbon Dioxide Anion Gap BUN Creatinine Est GFR ( Amer) Est GFR (Non-Af Amer) Glucose Calcium Magnesium Total Bilirubin Direct Bilirubin Neonat Total Bilirubin Neonat Direct Bilirubin Neonat Indirect Bili AST ALT Alkaline Phosphatase Creatine Kinase CK-MB (CK-2) 0.34 Troponin I 0.034 0.032 0.022 Total Protein Albumin Urine Color Urine Appearance Urine pH Ur Specific [place] Urine Protein Urine Glucose (UA) Urine Ketones Urine Blood Urine Nitrite Urine Bilirubin Urine Urobilinogen Ur Leukocyte Esterase Urine WBC (Auto) Urine RBC (Auto) Squamous Epi Cells Auto Urine Mucus (Auto) Urine Ascorbic Acid Urine HCG, Qual Cervical Spine CT 11/25/17 16:29 IMPRESSION: NO ACUTE OR SIGNIFICANT FINDINGS IN THE CERVICAL SPINE. Head CT 11/25/17 16:29 IMPRESSION: No acute intracranial findings. EVIDENCE OF ACUTE STROKE: NO. Shoulder X-Ray 11/25/17 16:29 IMPRESSION: NO RADIOGRAPHIC EVIDENCE OF ACUTE INJURY. Abdomen X-Ray 11/25/17 21:23 IMPRESSION: NON-SPECIFIC BOWEL GAS PATTERN. 11/25/17 23:01 37-year-old female presents after a syncopal episode at home. Upon arrival vitals were reviewed. Patient is hypertensive, afebrile and not hypoxic. Patient does not appear toxic or dehydrated. She is in no acute distress. Orthostatic vital signs were obtained and within normal limits. CT of the head was obtained and showed no acute process. X-rays of the left shoulder showed no acute injury. Cardiac workup was obtained and patient's opponent is at the upper limits of normal at this time. She was administered aspirin, nitro, fentanyl and Reglan. On reevaluation patient's blood pressure has improved. Chest pain has resolved. Patient will be admitted for observation and further evaluation for syncope. - Vital Signs Vital signs: Temp Pulse Resp BP Pulse Ox 85 14 127/71 H 98 11/25/17 16:32 11/25/17 21:01 11/25/17 21:01 11/25/17 21:01 - Laboratory Result Diagrams: 11/25/17 16:37 11/25/17 16:37 Laboratory results interpreted by me: 11/25/17 11/25/17 11/25/17 16:10 16:37 16:37 WBC 12.1 H RDW 15.1 H Absolute Neutrophils 8.4 H Glucose 246 H Creatine Kinase 156 H Total Protein 8.7 H Urine Glucose (UA) >=500 H Urine Ketones TRACE H - Diagnostic Test Radiology reviewed: Image reviewed, Reports reviewed - EKG Interpretation by In EKG shows normal: Sinus rhythm Rate: Normal Heart block present: 1st Degree Discharge - Discharge Clinical Impression: Syncope and collapse, Palpitations Chest pain Qualifiers: Chest pain type: unspecified Qualified Code(s): R07.9 - Chest pain, unspecified Hypertension Qualifiers: Hypertension type: unspecified Qualified Code(s): I10 - Essential (primary) hypertension Diabetes Qualifiers: Diabetes mellitus type: type 2 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
[2017-11-25 16:52] LABS: ABSOLUTE BASOPHILS # (AUTO) 0.1 10^3/uL (0.0-0.2); ABSOLUTE EOSINOPHILS # (AUTO) 0.3 10^3/uL (0.0-0.6); ABSOLUTE LYMPHOCYTES (AUTO) 2.6 10^3/uL (0.5-4.7); ABSOLUTE MONOCYTES (AUTO) 0.7 10^3/uL (0.1-1.4); ABSOLUTE NEUT (AUTO) 8.4 10^3/uL (1.7-8.2); BASOPHILS % (AUTO) 0.7 % (0-2); EOSINOPHILS % (AUTO) 2.4 % (0-6); HEMATOCRIT 39.9 % (36.0-47.0); LYMPHOCYTES % (AUTO) 21.6 % (13-45); MEAN CORPUSCULAR HEMOGLOBIN 27.3 pg (27.0-33.4); MEAN CORPUSCULAR HGB CONC 32.6 g/dL (32.0-36.0); MEAN CORPUSCULAR VOLUME 84 fl (80-97); PLATELET COUNT 392 10^3/uL (150-450); RED BLOOD COUNT 4.76 10^6/uL (3.72-5.28); RED CELL DISTRIBUTION WIDTH 15.1 % (11.5-14.0); SEGMENTED NEUTROPHILS % (AUTO) 69.3 % (42-78); TOTAL CELLS COUNTED % (AUTO) 100 %; WHITE BLOOD COUNT 12.1 10^3/uL (4.0-10.5)
[2017-11-25 16:54] LABS: APPEARANCE,URINE CLEAR; BILIRUBIN,URINE NEGATIVE (NEGATIVE); COLOR,URINE YELLOW; GLUCOSE, URINE >=500 mg/dL (NEGATIVE); KETONES,URINE TRACE mg/dL (NEGATIVE); LEUKOCYTE ESTERASE,URINE NEGATIVE (NEGATIVE); NITRITE,URINE NEGATIVE (NEGATIVE); PROTEIN,URINE NEGATIVE (NEGATIVE); URINE SPECIFIC GRAVITY 1.026; UROBILINOGEN,URINE NEGATIVE mg/dL (<2.0)
[2017-11-25 17:13] LABS: ALANINE AMINOTRANSFERASE 27 U/L (9-52); ALBUMIN 4.9 g/dL (3.5-5.0); ALKALINE PHOSPHATASE 124 U/L (38-126); ANION GAP 12 (5-19); ASPARTATE AMINO TRANSFERASE 25 U/L (14-36); BILIRUBIN,DIRECT 0.3 mg/dL (0.0-0.4); BILIRUBIN,TOTAL 0.3 mg/dL (0.2-1.3); BLOOD UREA NITROGEN 12 mg/dL (7-20); CALCIUM 10.1 mg/dL (8.4-10.2); CARBON DIOXIDE 29 mmol/L (22-30); CHLORIDE 100 mmol/L (98-107); CREATINE KINASE 156 U/L (30-135); GLUCOSE 246 mg/dL (75-110); SODIUM 141.1 mmol/L (137-145); TOTAL PROTEIN 8.7 g/dL (6.3-8.2)
--- NOTE | 2017-11-25 17:13 | RADIOLOGY REPORT (SQ) ---
EXAM DESCRIPTION: SHOULDER LEFT 2 OR MORE VIEWS COMPLETED DATE/TIME: 11/25/2017 5:00 pm REASON FOR STUDY: fall COMPARISON: None. NUMBER OF VIEWS: Three views. TECHNIQUE: Internal rotation, external rotation, and Y view images acquired of the left shoulder. LIMITATIONS: None. FINDINGS: MINERALIZATION: Normal. BONES: No acute fracture or dislocation. No worrisome bone lesions. JOINTS: No dislocation. VISUALIZED LUNGS AND RIBS: No pneumothorax. No rib fracture. SOFT TISSUES: No radiopaque foreign body. OTHER: No other significant finding. IMPRESSION: NO RADIOGRAPHIC EVIDENCE OF ACUTE INJURY. TECHNICAL DOCUMENTATION: JOB ID: [id number] [place]-72 2010 [employer]- All Rights Reserved Reading location - IP/workstation name: [email or web address]
[2017-11-25 17:22] LABS: CREATINE KINASE MB 0.34 ng/mL (<4.55)
[2017-11-25 17:25] LABS: TROPONIN I 0.034 ng/mL
[2017-11-25] MEDS ORDERED: ASPIRIN 81 MG TABLET, CHEWABLE PO ONE (17:29)
--- NOTE | 2017-11-25 17:41 | RADIOLOGY REPORT (SQ) ---
EXAM DESCRIPTION: CT HEAD WITHOUT COMPLETED DATE/TIME: 11/25/2017 5:17 pm REASON FOR STUDY: fall COMPARISON: None. TECHNIQUE: Axial images acquired through the brain without intravenous contrast. Images reviewed wi th bone, brain and subdural windows. Images stored on PACS. All CT scanners at this facility use dose modulation, iterative reconstruction, and/or weight based d osing when appropriate to reduce radiation dose to as low as reasonably achievable (ALARA). [facility]: Dose Right [facility]: CareDose [facility]: Dose Right [facility]: Teradose 4D [facility]: Smart [employer] RADIATION DOSE: CT Rad equipment meets quality standard of care and radiation dose reduction techniq ues were employed. CTDIvol: 53.2 mGy. DLP: 991 mGy-cm. mGy. LIMITATIONS: None. FINDINGS: VENTRICLES: Normal size and contour. CEREBRUM: No masses. No hemorrhage. No midline shift. No evidence for acute infarction. Normal gra y/white matter differentiation. No areas of low density in the white matter. CEREBELLUM: No masses. No hemorrhage. No alteration of density. No evidence for acute infarction. EXTRAAXIAL SPACES: No fluid collections. No masses. ORBITS AND GLOBE: No intra- or extraconal masses. Normal contour of globe without masses. CALVARIUM: No fracture. PARANASAL SINUSES: No fluid or mucosal thickening. SOFT TISSUES: No mass or hematoma. OTHER: No other significant finding. IMPRESSION: No acute intracranial findings. EVIDENCE OF ACUTE STROKE: NO. COMMENT: Quality ID # [id number]: Final reports with documentation of one or more dose reduction techniques (e.g., Automated exposure control, adjustment of the mA and/or kV according to patient size, use of iterative reconstruction technique) TECHNICAL DOCUMENTATION: JOB ID: [id number] [place]-72 2010 [employer]- All Rights Reserved Reading location - IP/workstation name: [email or web address]
--- NOTE | 2017-11-25 17:46 | RADIOLOGY REPORT (SQ) ---
EXAM DESCRIPTION: CT CERVICAL SPINE WITHOUT COMPLETED DATE/TIME: 11/25/2017 5:17 pm REASON FOR STUDY: fall COMPARISON: None. TECHNIQUE: Axial images acquired through the cervical spine without intravenous contrast. Images re viewed with lung, soft tissue and bone windows. Reconstructed coronal and sagittal MPR images review ed. Images stored on PACS. All CT scanners at this facility use dose modulation, iterative reconstruction, and/or weight based d osing when appropriate to reduce radiation dose to as low as reasonably achievable (ALARA). [facility]: Dose Right [facility]: CareDose [facility]: Dose Right [facility]: Teradose 4D [facility]: Smart [employer] RADIATION DOSE: CT Rad equipment meets quality standard of care and radiation dose reduction techniq ues were employed. CTDIvol: 23.7 mGy. DLP: 470 mGy-cm. mGy. LIMITATIONS: None. FINDINGS: ALIGNMENT: Anatomic. MINERALIZATION: Normal. VERTEBRAL BODIES: No fractures or dislocation. DISCS: No significant disc disease. FACETS, LATERAL MASSES, POSTERIOR ELEMENTS: No fractures. No dislocation. No acute findings. HARDWARE: None in the spine. VISUALIZED RIBS: No fractures. LUNG APICES AND SOFT TISSUES: No significant or acute findings. OTHER: No other significant finding. IMPRESSION: NO ACUTE OR SIGNIFICANT FINDINGS IN THE CERVICAL SPINE. TECHNICAL DOCUMENTATION: JOB ID: [id number] [place]-72 Quality ID # [id number]: Final reports with documentation of one or more dose reduction techniques (e.g., Au tomated exposure control, adjustment of the mA and/or kV according to patient size, use of iterative reconstruction technique) 2010 [employer] - [facility]- All Rights Reserved Reading location - IP/workstation name: [email or web address]
--- NOTE | 2017-11-25 17:59 | EKG REPORT ---
SEVERITY:- BORDERLINE ECG - SINUS RHYTHM PROBABLE LEFT ATRIAL ABNORMALITY : Confirmed by: Jj Samuel MD 25-Nov-2017 17:58:34
[2017-11-25] MEDS ORDERED: NITROGLYCERIN 0.4 MG/TAB 25 TAB/BOTTLE SL PRN (18:14)
[2017-11-25] MEDS ORDERED: METOCLOPRAMIDE HCL INJ/PF 10 MG/2 ML SDV IV ONE (20:18)
[2017-11-25] MEDS ORDERED: FENTANYL CITRATE INJ/PF 100 MCG/2 ML AMPUL IV ONE (20:18)
[2017-11-25] MEDS ORDERED: DIPHENHYDRAMINE HCL 50 MG/ML VIAL IV ONE (20:18)
--- NOTE | 2017-11-25 21:09 | EKG REPORT ---
SEVERITY:- BORDERLINE ECG - SINUS RHYTHM LVH BY VOLTAGE FIRST DEGREE AVB : Confirmed by: Jj Samuel MD 25-Nov-2017 21:08:59
[2017-11-25] MEDS ORDERED: MAG HYDROX/AL HYDROX/SIMETH SUSP 30 ML UDCUP PO PRN (21:19)
[2017-11-25] MEDS ORDERED: DEXTROSE 40% GEL 15 GM TUBE PO PRN ×2 (21:19)
[2017-11-25] MEDS ORDERED: GLUCAGON,HUMAN RECOMB 1 MG INJ IM PRN (21:19)
[2017-11-25] MEDS ORDERED: DEXTROSE 50%-WATER 25 GM/50 ML DISP.SYRIN IV PRN ×2 (21:19)
--- NOTE | 2017-11-25 22:16 | RADIOLOGY REPORT (SQ) ---
EXAM DESCRIPTION: ABDOMEN 2 VIEWS COMPLETED DATE/TIME: 11/25/2017 9:56 pm REASON FOR STUDY: pain COMPARISON: None. NUMBER OF VIEWS: Two views. TECHNIQUE: Supine and erect/decubitus radiographic images of the abdomen acquired. LIMITATIONS: None. FINDINGS: FREE AIR: None. No abnormal gas collections. LUNG BASES: Clear. BOWEL GAS PATTERN: Scattered gas-filled small bowel loops. No distended large or small bowel loops. CALCIFICATIONS: Possible 5 mm calcified left renal stone. SOFT TISSUES: No gross mass or suggestion of organomegaly. HARDWARE: None in the abdomen. BONES: No acute fracture. No worrisome bone lesions. OTHER: No other significant finding. IMPRESSION: NON-SPECIFIC BOWEL GAS PATTERN. TECHNICAL DOCUMENTATION: JOB ID: [id number] [place]-72 2010 [employer]- All Rights Reserved Reading location - IP/workstation name: [email or web address]
[2017-11-25] MEDS: NORMAL SALINE 1000 ML 1,000 ML IV SCH (23:15)
[2017-11-25] MEDS: ATORVASTATIN CALCIUM 80 MG TABLET PO SCH (23:16)
[2017-11-25] MEDS ORDERED: ACETAMINOPHEN 325 MG TABLET PO PRN (23:48)
[2017-11-26] MEDS: INSULIN LISPRO 100 UNIT/ML 3 ML VIAL SUBCUT PRN ×5 (00:12→22:47)
[2017-11-26] MEDS: KETOROLAC TROMETHAMINE INJ/PF 30 MG/1 ML SDV IV PRN ×2 (00:42→08:01)
--- NOTE | 2017-11-26 00:48 | PDOC H&P ---
History of Present Illness Admission Date/PCP: 11/25/17 21:59 Patient complains of: Tachycardia and passing out History of Present Illness: GEGE DOSS is a 37 year old female with a past medical history of recurrent nephrolithiasis, morbid obesity, hypertension and diabetes. Patient presents after an episode of tachycardia during housework which resulted in brief loss of consciousness and injury and pain to her left shoulder. Patient denies previous episode, chest pain, nausea vomiting or diaphoresis. Patient denies hypoglycemic events unfortunately stating her average blood sugar is 250. She denies recent change in medications in the emergency room she has an unremarkable workup and is referred to the hospitalist for evaluation. Past Medical History Cardiac Medical History: Reports: Hyperlipidema Denies: Atrial Fibrillation, Congestive Heart Failure, Coronary Artery Disease, Myocardial Infarction, Hypertension, Peripheral Vascular Disease, Heart Murmur Pulmonary Medical History: Neurological Medical History: Denies: Seizures Endocrine Medical History: Reports: Diabetes Mellitus Type 2, Obesity Denies: Hyperthyroidism, Hypothyroidism Renal/ Medical History: Reports: Nephrolithiasis Denies: Chronic Kidney Disease, End Stage Renal Disease Malignancy Medical History: Denies: Breast Cancer, Cervical Cancer, Leukemia, Ovarian Cancer GI Medical History: Denies: Crohn's Disease, Gastroesophageal Reflux Disease, Hiatal Hernia Musculoskeltal Medical History: Psychiatric Medical History: Denies: Dementia, Depression, Substance Abuse, Tobacco Dependency Hematology: Reports: Anemia Denies: Hemophilia, Sickle Cell Disease Infectious Medical History: Denies: HIV Past Surgical History Past Surgical History: Reports: Cholecystectomy Denies: Appendectomy, Section, Colostomy, Coronary Artery Bypass Graft, Gastric Bypass Surgery, Herniorrhaphy, Hysterectomy, Mastectomy, Pacemaker, Tonsillectomy, Tubal Ligation Social History Information Source: Patient, Emergency Med Personnel, [facility] Records Lives with: Spouse/Significant other Smoking Status: Never Smoker Frequency of Alcohol Use: None Hx Recreational Drug Use: No Drugs: None Hx Prescription Drug Abuse: No - Advance Directive Resuscitation Status: Full Code Family History Family History: CAD, Thyroid Disfunction Parental Family History Reviewed: Yes Children Family History Reviewed: Yes Sibling(s) Family History Reviewed.: Yes Medication/Allergy Home Medications: Metformin HCl [Glucophage] 500 mg PO BID 09/30/16 Allergies/Adverse Reactions: hydrocodone Allergy (Verified 11/25/17 13:52) tramadol Allergy (Verified 11/25/17 13:52) Review of Systems Constitutional: PRESENT: as per HPI, fatigue, weight gain. ABSENT: fever(s), headache(s) Eyes: ABSENT: visual disturbances Ears: ABSENT: hearing changes Cardiovascular: ABSENT: chest pain, dyspnea on exertion, edema, orthropnea, palpitations Respiratory: ABSENT: cough, hemoptysis Gastrointestinal: PRESENT: bloating, constipation. ABSENT: abdominal pain, diarrhea, hematemesis, hematochezia, nausea, vomiting Genitourinary: ABSENT: dysuria, hematuria Musculoskeletal: PRESENT: as per HPI, muscle weakness Integumentary: ABSENT: rash, wounds Neurological: ABSENT: abnormal gait, abnormal speech, confusion, dizziness, focal weakness, syncope Psychiatric: ABSENT: anxiety, depression, homidical ideation, suicidal ideation Endocrine: PRESENT: as per HPI, cold intolerance, polydipsia, polyphagia, polyuria Hematologic/Lymphatic: ABSENT: easy bleeding, easy bruising Physical Exam Vital Signs: Temp Pulse Resp BP Pulse Ox 98.4 F 85 15 150/91 H 99 11/25/17 14:01 11/25/17 16:32 11/25/17 22:32 11/25/17 23:01 11/25/17 23:01 General appearance: PRESENT: cooperative, mild distress, morbidly obese. ABSENT : disheveled, hard of hearing, severe distress Head exam: PRESENT: atraumatic, normocephalic Eye exam: PRESENT: conjunctiva pink, EOMI, PERRLA. ABSENT: scleral icterus Ear exam: PRESENT: normal external ear exam Mouth exam: PRESENT: moist, tongue midline Neck exam: ABSENT: carotid bruit, JVD, lymphadenopathy, thyromegaly Respiratory exam: PRESENT: clear to auscultation garrett. ABSENT: rales, rhonchi, wheezes Cardiovascular exam: PRESENT: RRR. ABSENT: diastolic murmur, rubs, systolic murmur Pulses: PRESENT: normal dorsalis pedis pul Vascular exam: PRESENT: normal capillary refill GI/Abdominal exam: PRESENT: normal bowel sounds, soft. ABSENT: distended, guarding, mass, organolmegaly, rebound, tenderness Rectal exam: PRESENT: deferred Extremities exam: PRESENT: full ROM. ABSENT: calf tenderness, clubbing, pedal edema Musculoskeletal exam: PRESENT: other - Reproducible left shoulder pain to internal rotation Neurological exam: PRESENT: alert Psychiatric exam: PRESENT: appropriate affect, normal mood. ABSENT: homicidal ideation, suicidal ideation Skin exam: PRESENT: dry, intact, warm. ABSENT: cyanosis, rash Results Laboratory Results: 11/25/17 22:05 TSH 5.51 H 11/25/17 22:05 Troponin I 0.022 Impressions: Cervical Spine CT 11/25/17 16:29 IMPRESSION: NO ACUTE OR SIGNIFICANT FINDINGS IN THE CERVICAL SPINE. Head CT 11/25/17 16:29 IMPRESSION: No acute intracranial findings. EVIDENCE OF ACUTE STROKE: NO. Shoulder X-Ray 11/25/17 16:29 IMPRESSION: NO RADIOGRAPHIC EVIDENCE OF ACUTE INJURY. Abdomen X-Ray 11/25/17 21:23 IMPRESSION: NON-SPECIFIC BOWEL GAS PATTERN. Assessment & Plan - Diagnosis (1) Syncope and collapse Is this a current diagnosis for this admission?: Yes Plan: Preceded by palpitations. Concern for SVT. Telemetry monitoring, serial cardiac enzymes, orthostatic blood pressures. (2) Morbid obesity Is this a current diagnosis for this admission?: Yes Plan: Diabetes and recent weight gain concern for hypothyroidism. Follow-up TSH (3) Chest pain Qualifiers: Chest pain type: unspecified Qualified Code(s): R07.9 - Chest pain, unspecified Is this a current diagnosis for this admission?: Yes Plan: Atypical chest pain though the patient's pain is atypical and reproducible about the left shoulder. However there are multiple risk factors for coronary artery disease and subsequently will observe and evaluation of acute coronary syndrome versus coronary artery disease with anginal equivalents. 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 (5) Hypertension Qualifiers: Hypertension type: unspecified Qualified Code(s): I10 - Essential (primary ) hypertension (6) Palpitations Is this a current diagnosis for this admission?: Yes Plan: Possible SVT. Telemetry monitoring. - Time Time Spent: 50 to 70 Minutes - Inpatient Certification Medical Necessity: Need Close Monitoring Due to Risk of Patient Decompensation
[2017-11-26] MEDS: NORMAL SALINE 1000 ML 1,000 ML IV SCH (03:53)
[2017-11-26 04:42] LABS: ABSOLUTE BASOPHILS # (AUTO) 0.1 10^3/uL (0.0-0.2); ABSOLUTE EOSINOPHILS # (AUTO) 0.3 10^3/uL (0.0-0.6); ABSOLUTE LYMPHOCYTES (AUTO) 2.6 10^3/uL (0.5-4.7); ABSOLUTE MONOCYTES (AUTO) 0.7 10^3/uL (0.1-1.4); ABSOLUTE NEUT (AUTO) 6.1 10^3/uL (1.7-8.2); BASOPHILS % (AUTO) 0.5 % (0-2); HEMATOCRIT 35.5 % (36.0-47.0); HEMOGLOBIN 11.5 g/dL (12.0-15.5); LYMPHOCYTES % (AUTO) 26.2 % (13-45); MEAN CORPUSCULAR HGB CONC 32.5 g/dL (32.0-36.0); MEAN CORPUSCULAR VOLUME 83 fl (80-97); MONOCYTES % (AUTO) 7.6 % (3-13); PLATELET COUNT 362 10^3/uL (150-450); RED BLOOD COUNT 4.27 10^6/uL (3.72-5.28); RED CELL DISTRIBUTION WIDTH 15.2 % (11.5-14.0); SEGMENTED NEUTROPHILS % (AUTO) 62.7 % (42-78); TOTAL CELLS COUNTED % (AUTO) 100 %; WHITE BLOOD COUNT 9.8 10^3/uL (4.0-10.5)
[2017-11-26 05:01] LABS: ANION GAP 8 (5-19); BLOOD UREA NITROGEN 13 mg/dL (7-20); CALCIUM 9.1 mg/dL (8.4-10.2); CARBON DIOXIDE 25 mmol/L (22-30); CHLORIDE 106 mmol/L (98-107); CHOLESTEROL 221.87 mg/dL (0-200); CREATINE KINASE 135 U/L (30-135); GLUCOSE 210 mg/dL (75-110); POTASSIUM 4.1 mmol/L (3.6-5.0); SODIUM 138.9 mmol/L (137-145); TRIGLYCERIDES 178 mg/dL (<150)
[2017-11-26 05:03] LABS: CREATINE KINASE MB 0.25 ng/mL (<4.55)
[2017-11-26 05:12] LABS: DIRECT LDL 147 mg/dL (<100); VLDL CHOLESTEROL 35.6 mg/dL (10-31)
[2017-11-26 05:23] LABS: TROPONIN I < 0.012 ng/mL
[2017-11-26] MEDS: ASPIRIN 81 MG TABLET, ENT COATED PO SCH (10:00)
[2017-11-26] MEDS: DOCUSATE SODIUM 100 MG CAPSULE PO SCH ×2 (10:01→17:08)
[2017-11-26] MEDS: HYDRALAZINE HCL INJ/PF 20 MG/1 ML SDV IV PRN (12:03)
[2017-11-26] MEDS: ACETAMINOPHEN 325 MG TABLET PO SCH ×2 (12:04→17:07)
[2017-11-26] MEDS: AMLODIPINE BESYLATE 5 MG TABLET PO SCH (12:24)
[2017-11-26] MEDS: IBUPROFEN 800 MG TABLET PO SCH ×2 (12:24→19:51)
--- NOTE | 2017-11-26 15:02 | PDOC PROGRESS REPORT ---
Subjective Progress Note for:: 11/26/17 Subjective:: Pt has a headache this am, no chest pain or difficulty breathing, no further palpitations or LOC. No other history of palpitations or syncope. No abd pain, nausea or vomiting. SHe is tired but has a good appetite. Reason For Visit: SYNCOPE CHESTPAIN, MORBID OBESITY,DIABETES Physical Exam Vital Signs: Temp Pulse Resp BP Pulse Ox 98.0 F 85 18 155/86 H 100 11/26/17 10:56 11/26/17 10:56 11/26/17 10:56 11/26/17 10:56 11/26/17 10:56 Intake & Output 11/25/17 11/26/17 11/27/17 06:59 06:59 06:59 Intake Total 1300 275 Balance 1300 275 Weight 133.6 kg General appearance: PRESENT: no acute distress, cooperative, obese Head exam: PRESENT: atraumatic, normocephalic Eye exam: PRESENT: EOMI, scleral icterus Mouth exam: PRESENT: moist, neck supple, tongue midline Respiratory exam: PRESENT: clear to auscultation garrett, unlabored. ABSENT: rales , rhonchi, wheezes Cardiovascular exam: PRESENT: RRR. ABSENT: systolic murmur Pulses: PRESENT: normal radial pulses GI/Abdominal exam: PRESENT: normal bowel sounds, soft. ABSENT: distended, tenderness Rectal exam: PRESENT: deferred Extremities exam: PRESENT: +1 edema - right distal leg and ankle Musculoskeletal exam: PRESENT: ambulatory. ABSENT: tenderness Neurological exam: PRESENT: alert, awake, oriented to person, oriented to place , oriented to situation, CN II-XII grossly intact Psychiatric exam: PRESENT: flat affect. ABSENT: anxious Skin exam: PRESENT: dry, intact, warm Results Laboratory Results: 11/26/17 04:02 11/26/17 04:02 11/25/17 11/26/17 11/26/17 22:05 04:02 04:02 WBC 9.8 RBC 4.27 Hgb 11.5 L Hct 35.5 L MCV 83 MCH 27.0 MCHC 32.5 RDW 15.2 H Plt Count 362 Seg Neutrophils % 62.7 Lymphocytes % 26.2 Monocytes % 7.6 Eosinophils % 3.0 Basophils % 0.5 Absolute Neutrophils 6.1 Absolute Lymphocytes 2.6 Absolute Monocytes 0.7 Absolute Eosinophils 0.3 Absolute Basophils 0.1 Sodium 138.9 Potassium 4.1 Chloride 106 Carbon Dioxide 25 Anion Gap 8 BUN 13 Creatinine 0.66 Est GFR ( Amer) > 60 Est GFR (Non-Af Amer) > 60 Glucose 210 H Calcium 9.1 Triglycerides 178 H Cholesterol 221.87 H LDL Cholesterol Direct 147 H VLDL Cholesterol 35.6 H HDL Cholesterol 44 TSH 5.51 H 11/25/17 11/26/17 11/26/17 22:05 04:02 04:02 Creatine Kinase 135 CK-MB (CK-2) 0.25 Troponin I 0.022 < 0.012 11/26/17 09:48 Creatine Kinase CK-MB (CK-2) Troponin I < 0.012 Impressions: Cervical Spine CT 11/25/17 16:29 IMPRESSION: NO ACUTE OR SIGNIFICANT FINDINGS IN THE CERVICAL SPINE. Head CT 11/25/17 16:29 IMPRESSION: No acute intracranial findings. EVIDENCE OF ACUTE STROKE: NO. Shoulder X-Ray 11/25/17 16:29 IMPRESSION: NO RADIOGRAPHIC EVIDENCE OF ACUTE INJURY. Abdomen X-Ray 11/25/17 21:23 IMPRESSION: NON-SPECIFIC BOWEL GAS PATTERN. Assessment & Plan - Diagnosis (1) Syncope and collapse Is this a current diagnosis for this admission?: Yes Plan: Have ordered cardiology consult for arrhythmia evaluation. CT scan of the head negative. Echocardiogram ordered. Continue telemetry. Fall precautions. (2) Palpitations Is this a current diagnosis for this admission?: Yes Plan: Continue telemetry, await echocardiogram results, cardiology consult placed evaluate for arrhythmia. (3) Headache Is this a current diagnosis for this admission?: Yes Plan: unclear type, will start around the clock tylenol and ibuprofen for two days. Will add oxycodone if no effect. CT head negative. (4) Left shoulder pain Qualifiers: Chronicity: acute Qualified Code(s): M25.512 - Pain in left shoulder Is this a current diagnosis for this admission?: Yes Plan: after fall, no fracture, no obvious bruising, will add tylenol and iburpofen and monitor (5) Diabetes Qualifiers: Diabetes mellitus type: type 2 Diabetes mellitus moth exterminator insulin use: without moth exterminator use Diabetes mellitus complication status: without complication Qualified Code(s): E11.9 - Type 2 diabetes mellitus without complications Is this a current diagnosis for this admission?: Yes Plan: continue home regimen, monitor CBGs, diabetic diet (6) Hypertension Qualifiers: Hypertension type: unspecified Qualified Code(s): I10 - Essential (primary ) hypertension Is this a current diagnosis for this admission?: Yes Plan: have started amlodipine 5 mg, will work on pain control, will monitor blood pressure. As needed hydralazine available also. - Time Time Spent with patient: 25-34 minutes Medications reviewed and adjusted accordingly: Yes - Inpatient Certification Based on my medical assessment, after consideration of the patient's comorbidities, presenting symptoms, or acuity I expect that the services needed warrant INPATIENT care.: Yes I certify that my determination is in accordance with my understanding of Medicare's requirements for reasonable and necessary INPATIENT services [42 CFR 412.3e].: Yes Medical Necessity: Significant Comorbidiites Make Outpatient Treatment Too Risky , Need Close Monitoring Due to Risk of Patient Decompensation, Risk of Complication if Not Cared For in Hospital
[2017-11-26] MEDS ORDERED: HYDROMORPHONE HCL INJ/PF 2 MG/ML AMPULE IV ONE (16:00)
--- NOTE | 2017-11-26 16:54 | RADIOLOGY REPORT (SQ) ---
EXAM DESCRIPTION: VENOUS UNILATERAL LOWER COMPLETED DATE/TIME: 11/26/2017 4:44 pm REASON FOR STUDY: Right leg DVT COMPARISON: None. TECHNIQUE: Dynamic and static silverio scale and color images acquired of the right leg venous system. S elected spectral images acquired with additional compression and augmentation maneuvers. The contrala teral common femoral vein and saphenofemoral junction were also imaged. Images stored on PACS. LIMITATIONS: None. FINDINGS: COMMON FEMORAL: Normal phasicity, compression and augmentation. No visualized echogenic ma terial on silverio scale. No defects on color images. FEMORAL: Normal compression and augmentation. No visualized echogenic material on silverio scale. No defe cts on color images. POPLITEAL: Normal compression, augmentation. No visualized echogenic material on silverio scale. No defec ts on color images. CALF VESSELS: Normal compression, augmentation. No visualized echogenic material on silverio scale. No de fects on color images. GSV and SSV: Normal compression, augmentation. No visualized echogenic material on silverio scale. No def ects on color images. ANY DEEP VENOUS INSUFFICIENCY: Not evaluated. ANY EVIDENCE OF POPLITEAL CYST: No. OTHER: No other significant finding. CONTRALATERAL COMMON FEMORAL VEIN AND SAPHENOFEMORAL JUNCTION: Normal phasicity, compression and augmentation. No visualized echogenic material on silverio scale. No de fects on color images. IMPRESSION: NO EVIDENCE OF DVT OR SVT IN THE RIGHT LEG. TECHNICAL DOCUMENTATION: JOB ID: [id number] [employer]- All Rights Reserved Reading location - IP/workstation name: [email or web address]
[2017-11-26] MEDS ORDERED: HYDROMORPHONE HCL INJ/PF 2 MG/ML AMPULE IV PRN (20:46)
[2017-11-26] MEDS: ATORVASTATIN CALCIUM 80 MG TABLET PO SCH (21:28)
[2017-11-26] MEDS ORDERED: CALCIUM CARBONATE 500 MG TAB.CHEW PO PRN (23:52)
[2017-11-27] MEDS: ACETAMINOPHEN 325 MG TABLET PO SCH ×5 (01:17→23:42)
[2017-11-27] MEDS: IBUPROFEN 800 MG TABLET PO SCH ×4 (04:50→21:11)
[2017-11-27 05:11] LABS: HEMATOCRIT 36.4 % (36.0-47.0); HEMOGLOBIN 11.8 g/dL (12.0-15.5); MEAN CORPUSCULAR HEMOGLOBIN 27.1 pg (27.0-33.4); MEAN CORPUSCULAR HGB CONC 32.3 g/dL (32.0-36.0); MEAN CORPUSCULAR VOLUME 84 fl (80-97); PLATELET COUNT 312 10^3/uL (150-450); RED BLOOD COUNT 4.33 10^6/uL (3.72-5.28); RED CELL DISTRIBUTION WIDTH 14.9 % (11.5-14.0); WHITE BLOOD COUNT 8.5 10^3/uL (4.0-10.5)
[2017-11-27 05:31] LABS: ANION GAP 12 (5-19); BLOOD UREA NITROGEN 11 mg/dL (7-20); CALCIUM 8.9 mg/dL (8.4-10.2); CARBON DIOXIDE 24 mmol/L (22-30); CHLORIDE 104 mmol/L (98-107); GLUCOSE 245 mg/dL (75-110); SODIUM 139.7 mmol/L (137-145)
[2017-11-27] MEDS: HYDRALAZINE HCL INJ/PF 20 MG/1 ML SDV IV PRN (06:35)
[2017-11-27] MEDS: INSULIN LISPRO 100 UNIT/ML 3 ML VIAL SUBCUT PRN ×4 (08:42→21:48)
[2017-11-27] MEDS: DOCUSATE SODIUM 100 MG CAPSULE PO SCH ×2 (09:38→17:37)
[2017-11-27] MEDS ORDERED: ONDANSETRON HCL INJ/PF 4 MG/2 ML SDV ONE (10:18)
[2017-11-27] MEDS: ASPIRIN 81 MG TABLET, ENT COATED PO SCH (10:25)
[2017-11-27] MEDS: AMLODIPINE BESYLATE 5 MG TABLET PO SCH (11:53)
--- NOTE | 2017-11-27 12:18 | PDOC PROGRESS REPORT ---
Subjective Progress Note for:: 11/27/17 Subjective:: Still with headaches, admitted status post fall/palpitations/syncope. No nausea vomiting with Dilaudid yesterday. No history of palpitations or syncope , no further palpitations. No abdominal pain, no fever or chills, no chest pain or shortness of breath. Reason For Visit: SYNCOPE CHESTPAIN, MORBID OBESITY,DIABETES Physical Exam Vital Signs: Temp Pulse Resp BP Pulse Ox 97.8 F 105 H 12 149/93 H 100 11/27/17 07:26 11/27/17 07:29 11/27/17 07:26 11/27/17 07:29 11/27/17 07:29 Intake & Output 11/26/17 11/27/17 11/28/17 06:59 06:59 06:59 Intake Total 1300 1485 Balance 1300 1485 Weight 133.6 kg 122 kg GEN: NAD, well-developed, well-nourished HEENT: Normocephalic/atraumatic CV: RRR, NL S1S2 LUNGS: CTA bilaterally ABDOMEN Soft, NT, +BS EXTERMITIES: No e/c/c NEURO: Alert, oriented 3, no lateralizing weakness Results Laboratory Results: 11/27/17 04:45 11/27/17 04:45 11/27/17 11/27/17 04:45 04:45 WBC 8.5 RBC 4.33 Hgb 11.8 L Hct 36.4 MCV 84 MCH 27.1 MCHC 32.3 RDW 14.9 H Plt Count 312 Sodium 139.7 Potassium 4.0 Chloride 104 Carbon Dioxide 24 Anion Gap 12 BUN 11 Creatinine 0.58 Est GFR ( Amer) > 60 Est GFR (Non-Af Amer) > 60 Glucose 245 H Calcium 8.9 11/25/17 11/26/17 11/26/17 22:05 04:02 04:02 Creatine Kinase 135 CK-MB (CK-2) 0.25 Troponin I 0.022 < 0.012 11/26/17 09:48 Creatine Kinase CK-MB (CK-2) Troponin I < 0.012 Impressions: Cervical Spine CT 11/25/17 16:29 IMPRESSION: NO ACUTE OR SIGNIFICANT FINDINGS IN THE CERVICAL SPINE. Head CT 11/25/17 16:29 IMPRESSION: No acute intracranial findings. EVIDENCE OF ACUTE STROKE: NO. Shoulder X-Ray 11/25/17 16:29 IMPRESSION: NO RADIOGRAPHIC EVIDENCE OF ACUTE INJURY. Abdomen X-Ray 11/25/17 21:23 IMPRESSION: NON-SPECIFIC BOWEL GAS PATTERN. Venous Doppler Study 11/26/17 00:00 IMPRESSION: NO EVIDENCE OF DVT OR SVT IN THE RIGHT LEG. Assessment & Plan - Plan Summary Plan Summary: (1) Syncope and collapse Is this a current diagnosis for this admission?: Yes Plan: Cardiology evaluation for arrhythmia pending. CT scan of the head negative. Echocardiogram ordered and pending. Continue telemetry. Fall precautions. (2) Palpitations Is this a current diagnosis for this admission?: Yes Plan: Continue telemetry, await echocardiogram results, cardiology evaluation for arrhythmia. (3) Headache Is this a current diagnosis for this admission?: Yes Plan: unclear type, started after a fall. Tylenol and ibuprofen not effective. Will institute trial of oxycodone which she has tolerated in the past. CT head negative. (4) Left shoulder pain Qualifiers: Chronicity: acute Qualified Code(s): M25.512 - Pain in left shoulder Is this a current diagnosis for this admission?: Yes Plan: after fall, no fracture, no obvious bruising, pain management and monitor (5) Diabetes Qualifiers: Diabetes mellitus type: type 2 Diabetes mellitus shelter insulin use: without shelter use Diabetes mellitus complication status: without complication Qualified Code(s): E11.9 - Type 2 diabetes mellitus without complications Is this a current diagnosis for this admission?: Yes Plan: continue home regimen, monitor CBGs, diabetic diet, sliding scale insulin as needed (6) Hypertension Qualifiers: Hypertension type: unspecified Qualified Code(s): I10 - Essential (primary ) hypertension Is this a current diagnosis for this admission?: Yes Plan: mlodipine 5 mg was started by Dr. Fischer yesterday, but will probably change to CATHERINE inhibitor given history of diabetes. Will work on pain control, will monitor blood pressure. As needed hydralazine available also.
[2017-11-27] MEDS: OXYCODONE-ACETAMINOPHEN 5-325 MG TABLET PO PRN (12:21)
[2017-11-27] MEDS ORDERED: HYDRALAZINE HCL INJ/PF 20 MG/1 ML SDV IV PRN (12:30)
[2017-11-27] MEDS ORDERED: LISINOPRIL 10 MG TABLET PO ONE (13:00)
--- NOTE | 2017-11-27 14:29 | EKG REPORT ---
SEVERITY:- ABNORMAL ECG - SINUS RHYTHM FIRST DEGREE AV BLOCK : Confirmed by: Ariel Ocampo 27-Nov-2017 14:28:52
[2017-11-27] MEDS ORDERED: IBUPROFEN 800 MG TABLET PO ONE (16:00)
[2017-11-27] MEDS: ONDANSETRON HCL INJ/PF 4 MG/2 ML SDV IV PRN (17:57)
--- NOTE | 2017-11-27 18:53 | XCELERA REPORT ---
[address] [address] Transthoracic Echocardiogram Report Name: GEGE DOSS Age: 37 yrs Gender: Female : 1980 Patient Status: Inpatient Patient Location: [address] [place] [address] Study Date: 11/27/2017 09:27 AM Height: 67 in Weight: 294 lb BSA: 2.4 m2 Procedure: A complete two-dimensional transthoracic echocardiogram was performed (2D, M-mode, spectral and color flow Doppler). The study was technically adequate with some images being suboptimal in quality. Reason For Study: Syncope Ordering Physician: ARIEL NORWOOD Performed By: Nerissa Ochoa Interpretation Summary The left ventricular ejection fraction is normal. There is mild concentric left ventricular hypertrophy. The left ventricle is grossly normal size. Doppler measurements suggest pseudonormalized left ventricular relaxation, which is associated with grade II/IV or mild to moderate diastolic dysfunction Wall motion cannot be accurately commented on, but no definite regional wall motion abnormalities noted. The right ventricular systolic function is normal. The right ventricle is grossly normal size. The right atrium is normal. The left atrial size is normal. There is no mitral regurgitation noted. There is no mitral valve stenosis. There is no aortic valve stenosis No aortic regurgitation is present. There is a trace amount of tricuspid regurgitation Tricuspid regurgitation jet envelope not well defined to measure RV systolic pressure accurately. The aortic root is not well visualized but is probably normal size. The inferior vena cava was not well visualized Minimal pericardial effusion. MMode/2D Measurements & Calculations RVDd: 3.5 cm LVIDd: 4.6 cm FS: 27.1 % Ao root diam: 2.7 cm IVSd: 1.1 cm LVIDs: 3.3 cm EDV(Teich): 96.7 ml LVPWd: 1.1 cm ESV(Teich): 45.6 ml Ao root area: 5.7 cm2 EF(Teich): 52.8 % LA dimension: 3.3 cm Doppler Measurements & Calculations MV E max chato: MV P1/2t max chato: Ao V2 max: LV V1 max P.2 cm/sec 77.0 cm/sec 145.1 cm/sec 4.8 mmHg MV A max chato: MV P1/2t: 68.0 msec Ao max PG: LV V1 max: 95.3 cm/sec 8.4 mmHg 109.6 cm/sec MV E/A: 0.90 MVA(P1/2t): 3.2 cm2 MV dec slope: 331.7 cm/sec2 MV dec time: 0.23 sec PA V2 max: PI end-d chato: 92.3 cm/sec 105.9 cm/sec PA max P.4 mmHg Left Ventricle The left ventricle is grossly normal size. There is mild concentric left ventricular hypertrophy. The left ventricular ejection fraction is normal. Doppler measurements suggest pseudonormalized left ventricular relaxation, which is associated with grade II/IV or mild to moderate diastolic dysfunction. Wall motion cannot be accurately commented on, but no definite regional wall motion abnormalities noted. Right Ventricle The right ventricle is grossly normal size. There is normal right ventricular wall thickness. The right ventricular systolic function is normal. Atria The right atrium is normal. The left atrial size is normal. Interarterial septum not well visualized and not well dopplered. Cannot comment on ASD/PFO presence. Mitral Valve The mitral valve is grossly normal. There is no mitral valve stenosis. There is no mitral regurgitation noted. Aortic Valve The aortic valve is grossly normal. There is no aortic valve stenosis. No aortic regurgitation is present. Tricuspid Valve The tricuspid valve is not well visualized, but is grossly normal. There is no tricuspid stenosis. There is a trace amount of tricuspid regurgitation. Tricuspid regurgitation jet envelope not well defined to measure RV systolic pressure accurately. Pulmonic Valve The pulmonic valve is not well visualized. Great Vessels The aortic root is not well visualized but is probably normal size. The inferior vena cava was not well visualized. Effusions Minimal pericardial effusion. : ARIEL NORWOOD > Ariel Norwood
--- NOTE | 2017-11-27 20:23 | PDOC CONSULTATION ---
Consultation Consult Date: 11/27/17 Attending physician:: BARI MORA Consult reason:: Syncope History of Present Illness Admission Date/PCP: 11/27/17 17:32 Patient complains of: Syncope History of Present Illness: GEGE DOSS is a 37 year old female with a past medical history of recurrent nephrolithiasis, morbid obesity, hypertension and diabetes. Patient presents after an episode of tachycardia during housework which resulted in brief loss of consciousness and injury and pain to her left shoulder. Patient denies previous episode, chest pain, nausea vomiting or diaphoresis. Patient denies hypoglycemic events unfortunately stating her average blood sugar is 250. She denies recent change in medications in the emergency room she has an unremarkable workup and is referred to the hospitalist for evaluation. This history was reviewed and confirmed. The syncopal spell was witnessed by patient's son. It seems patient started with racing of the heart. She went to a cupboard and raised her arm up to get something, subsequently felt flushing sensation in front of her eyes, very dizzy and passed out. Son noted slight shaking or tremors of both hands and patient looking pale. Patient came around very quickly, within a minute. Patient subsequently came to the emergency room. So far on cardiac monitoring no significant arrhythmias are noted. Patient does claim intermittent chest pain. She claimed that she was scheduled to have a stress test but never been any had one done. I am told that she is being scheduled for a sleep study. On questioning patient describes intermittent chest pain located in the left side of chest. No significant radiation. No definite precipitating factors. Patient was scheduled for a stress test but never really had it done. Past Medical History Cardiac Medical History: Reports: Hyperlipidema Denies: Atrial Fibrillation, Congestive Heart Failure, Coronary Artery Disease, Myocardial Infarction, Hypertension, Peripheral Vascular Disease, Heart Murmur Pulmonary Medical History: Neurological Medical History: Denies: Seizures Endocrine Medical History: Reports: Diabetes Mellitus Type 2, Obesity Denies: Hyperthyroidism, Hypothyroidism Renal/ Medical History: Reports: Nephrolithiasis Denies: Chronic Kidney Disease, End Stage Renal Disease Malignancy Medical History: Denies: Breast Cancer, Cervical Cancer, Leukemia, Ovarian Cancer GI Medical History: Denies: Crohn's Disease, Gastroesophageal Reflux Disease, Hiatal Hernia Musculoskeltal Medical History: Psychiatric Medical History: Denies: Dementia, Depression, Substance Abuse, Tobacco Dependency Hematology: Reports: Anemia Denies: Hemophilia, Sickle Cell Disease Infectious Medical History: Denies: HIV Past Surgical History Past Surgical History: Reports: Cholecystectomy Denies: Appendectomy, Section, Colostomy, Coronary Artery Bypass Graft, Gastric Bypass Surgery, Herniorrhaphy, Hysterectomy, Mastectomy, Pacemaker, Tonsillectomy, Tubal Ligation Social History Information Source: Patient Lives with: Spouse/Significant other Smoking Status: Never Smoker Frequency of Alcohol Use: None Hx Recreational Drug Use: No Drugs: None Hx Prescription Drug Abuse: No - Advance Directive Resuscitation Status: Full Code Surrogate healthcare decision maker:: Patient's Family History Family History: CAD, Thyroid Disfunction Parental Family History Reviewed: Yes Children Family History Reviewed: Yes Sibling(s) Family History Reviewed.: Yes - Negative for premature coronary artery disease or sudden cardiac in the immediate family member. Patient tells me that her brother had stent in his 20s. Medication/Allergy Home Medications: Metformin HCl [Glucophage] 500 mg PO BID 09/30/16 Allergies/Adverse Reactions: hydrocodone Allergy (Verified 11/25/17 13:52) tramadol Allergy (Verified 11/25/17 13:52) Review of Systems Review of Systems: Please see history of present illness and past medical history as wall. Constitutional: No fever or chills reported. Head : No recent chronic headaches, recent head injury. Eyes: No recent eye pain, diplopia, redness, discharge, acute visual changes. Ears: No recent chronic ear pain, acute hearing loss, ear discharge. Oral cavity: No recent ulcerations, bleeding, oral cavity discomfort. Neck: No recent acute neck pain reported. Hematologic: No recent easy bruising or bleeding. Lymphatic: No recent lymph node enlargement reported. Cardiovascular system review: See history of present illness. Intermittent palpitations and chest pains. Respiratory system review: No hemoptysis or blood clots in the lungs reported. Mild Shortness of breath on exertion Gastrointestinal system review: Negative for any recent acute hematemesis, melena. Genitourinary system review: No recent acute or chronic hematuria, flank pain, UTI etc. reported. Skin system review: Negative for any recent abnormal bruising, no rash, no pruritus reported. Neurologic: No prior history of strokes, mini strokes, seizure disorder. Psychologic: No history of major psychosis or major depression reported. Musculoskeletal: Minor aches and pains reported. No acute joint swelling reported. Endocrine: No recent polyuria, polydipsia, recent heat or cold intolerance. Physical Exam Vital Signs: Temp Pulse Resp BP Pulse Ox 97.9 F 88 11 L 140/83 H 99 11/27/17 15:00 11/27/17 19:00 11/27/17 15:00 11/27/17 15:00 11/27/17 15:00 Intake & Output 11/26/17 11/27/17 11/28/17 06:59 06:59 06:59 Intake Total 522 Balance 522 Exam: GENERAL: well-nourished and in no acute distress. Alert and oriented x3 HEAD: Atraumatic, normocephalic. EYES: Pupils equal round and reactive to light, extraocular movements intact, sclera anicteric, conjunctiva are normal. ENT: TMs normal, nares patent, oropharynx clear without exudates. Moist mucous membranes. No oral ulcerations or bleeding gums noted NECK: supple without lymphadenopathy. Trachea is central. No cervical or axillary lymphadenopathy noted. Carotids are 2+, JVD WNL LUNGS: Respiration seems nonlabored, no significant accessory muscle action noted. Breath sounds clear to auscultation bilaterally and equal noted. No wheezes rales or rhonchi noted. No significant dullness noted on percussion. CHEST: Palpation of the chest wall shows no significant chest wall tenderness. HEART: [place], No PSH, 1/6 JAKE aortic area, 1/6 long systolic murmur mitral area, no rubs, no gallops. ABDOMEN: Soft, no significant tenderness appreciated, normoactive bowel sounds. No guarding, no rebound. No rigidity noted . No masses appreciated. EXTREMITIES: Pedal pulses are 1-2+, no calf tenderness noted. No clubbing or cyanosis. negative pedal edema noted NEUROLOGICAL: Focused neurological exam showed no significant neurologic deficit. Normal speech, no focal weakness appreciated. PSYCH: Normal mood, normal affect. Judgment and insight within normal limits. SKIN: No significant ecchymosis, skin is noted to be warm. MUSCULOSKELETAL EXAM: No significant acute joint swelling noted. Results EKG Comments: EKG is reviewed. Shows sinus rhythm, no acute ST-T wave changes noted. Impressions: Cervical Spine CT 11/25/17 16:29 IMPRESSION: NO ACUTE OR SIGNIFICANT FINDINGS IN THE CERVICAL SPINE. Head CT 11/25/17 16:29 IMPRESSION: No acute intracranial findings. EVIDENCE OF ACUTE STROKE: NO. Shoulder X-Ray 11/25/17 16:29 IMPRESSION: NO RADIOGRAPHIC EVIDENCE OF ACUTE INJURY. Abdomen X-Ray 11/25/17 21:23 IMPRESSION: NON-SPECIFIC BOWEL GAS PATTERN. Venous Doppler Study 11/26/17 00:00 IMPRESSION: NO EVIDENCE OF DVT OR SVT IN THE RIGHT LEG. Assessment & Plan - Diagnosis (1) Syncope and collapse Is this a current diagnosis for this admission?: Yes (2) Chest pain Qualifiers: Chest pain type: unspecified Qualified Code(s): R07.9 - Chest pain, unspecified Is this a current diagnosis for this admission?: Yes (3) Diabetes Qualifiers: Diabetes mellitus type: type 2 Diabetes mellitus intermodal customer service insulin use: without custodial use Diabetes mellitus complication status: without complication Qualified Code(s): E11.9 - Type 2 diabetes mellitus without complications Is this a current diagnosis for this admission?: Yes (4) Hypertension Qualifiers: Hypertension type: unspecified Qualified Code(s): I10 - Essential (primary ) hypertension Is this a current diagnosis for this admission?: Yes (5) Palpitations Is this a current diagnosis for this admission?: Yes (6) Panic disorder [episodic paroxysmal anxiety] Is this a current diagnosis for this admission?: Yes - Notes Notes: Syncope: The cause is undetermined at this time. There could be multiple differential diagnosis. This includes cardiac arrhythmia in this patient's age group, hypotension secondary to orthostasis, seizure disorder, hypoglycemia et cetera. Both radha and tachyarrhythmias are possible. Patient will benefit from cardiac monitoring during this admission. May need to consider outpatient cardiac monitoring using mobile cardiac personnel monitor if clinically indicated. Further evaluation with a 2D echocardiogram and also nuclear stress test are being planned. Chest pain: Patient has some typical and atypical features of chest pain. Cardiac enzymes so far has been negative. Electrocardiogram did not show any definitive ST segment changes. Multiple differential diagnoses exist in this patient. In descending order of probability this includes underlying coronary artery disease, gastroesophageal reflux, musculoskeletal pain, referred pain from elsewhere, anxiety panic disorder etc.Patient has significant cardiac risk factors, which indicates that there is a intermediate probability of chest discomfort coming from underlying CAD. Feel that it would need to be evaluated further. Discussed evaluation to assess this. In this regard risk benefits of nuclear stress test and other alternative processes were discussed in detail. The patient prefers to undergo nuclear stress test. The small risk of radiation , myocardial infarction, , cardiac arrhythmias, respiratory distress etc. were discussed. Patient understood the risks and gave informed consent. Nuclear stress test was therefore scheduled. For risk evaluation, patient is also being scheduled for a 2-D echocardiogram. Patient questions were answered. Diabetes: Recommend good control of blood sugar. However should avoid any hypoglycemia and hyperglycemia. Patient being expertly managed by primary care M.D/hospitalist Hypertension: Blood pressure goal in this patient is 140/90 or less. This was discussed with the patient. Currently blood pressure under reasonable control. Better medication for this patient are CATHERINE inhibitor/ARB/beta gale etc. discussed side effects of uncontrolled hypertension and also severe hypotension. Palpitations: Patient does describe history of anxiety panic disorder. Could be related to that but since patient also had syncope, could be related to cardiac dysrhythmia. Patient describes episodes of episodic anxiety which she claims has caused palpitations at times. - Time Time Spent: 30 to 50 Minutes - CODE STATUS was discussed, patient remains full code. Surrogate decision-maker unchanged. Multiple medical problems were addressed. More than 50% of the time spent coordinating care, discussing management plans with involved caregivers. Management plans discussed with involved personnels. Medical decision making was of moderate to high complexity , patient's has multiple comorbidities. Medications reviewed and adjusted accordingly: Yes
[2017-11-27] MEDS: ATORVASTATIN CALCIUM 80 MG TABLET PO SCH (21:10)
[2017-11-28 05:33] LABS: ABSOLUTE EOSINOPHILS # (AUTO) 0.3 10^3/uL (0.0-0.6); ABSOLUTE LYMPHOCYTES (AUTO) 2.5 10^3/uL (0.5-4.7); ABSOLUTE MONOCYTES (AUTO) 0.7 10^3/uL (0.1-1.4); ABSOLUTE NEUT (AUTO) 6.7 10^3/uL (1.7-8.2); BASOPHILS % (AUTO) 0.3 % (0-2); EOSINOPHILS % (AUTO) 3.1 % (0-6); HEMATOCRIT 38.1 % (36.0-47.0); HEMOGLOBIN 12.6 g/dL (12.0-15.5); LYMPHOCYTES % (AUTO) 24.6 % (13-45); MEAN CORPUSCULAR HEMOGLOBIN 27.4 pg (27.0-33.4); MEAN CORPUSCULAR HGB CONC 32.9 g/dL (32.0-36.0); MEAN CORPUSCULAR VOLUME 83 fl (80-97); PLATELET COUNT 337 10^3/uL (150-450); RED BLOOD COUNT 4.59 10^6/uL (3.72-5.28); RED CELL DISTRIBUTION WIDTH 15.3 % (11.5-14.0); TOTAL CELLS COUNTED % (AUTO) 100 %; WHITE BLOOD COUNT 10.3 10^3/uL (4.0-10.5)
[2017-11-28 05:47] LABS: ANION GAP 12 (5-19); BLOOD UREA NITROGEN 12 mg/dL (7-20); CALCIUM 9.7 mg/dL (8.4-10.2); CARBON DIOXIDE 23 mmol/L (22-30); CHLORIDE 103 mmol/L (98-107); GLUCOSE 214 mg/dL (75-110); POTASSIUM 4.1 mmol/L (3.6-5.0)
[2017-11-28] MEDS: ACETAMINOPHEN 325 MG TABLET PO SCH (06:17)
[2017-11-28] MEDS: IBUPROFEN 800 MG TABLET PO SCH ×2 (06:17→14:33)
[2017-11-28] MEDS: INSULIN LISPRO 100 UNIT/ML 3 ML VIAL SUBCUT PRN ×4 (08:34→23:15)
[2017-11-28] MEDS: ONDANSETRON HCL INJ/PF 4 MG/2 ML SDV IV PRN (08:35)
[2017-11-28] MEDS: OXYCODONE-ACETAMINOPHEN 5-325 MG TABLET PO PRN ×2 (08:35→17:51)
[2017-11-28] MEDS: ASPIRIN 81 MG TABLET, ENT COATED PO SCH (11:08)
[2017-11-28] MEDS: DOCUSATE SODIUM 100 MG CAPSULE PO SCH ×2 (11:11→17:51)
[2017-11-28] MEDS: LISINOPRIL 10 MG TABLET PO SCH (11:12)
--- NOTE | 2017-11-28 12:12 | DRAGON STRESS TEST REPORT ---
INTRAVENOUS LEXISCAN CARDIOLITE STRESS TEST USING SINGLE PHOTON EMMISION COMPUTERIZED TOMOGRAPHIC. DATE OF PROCEDURE: November 28, 2017, INDICATION : Chest pain CARDIAC RISK FACTORS: Diabetes, hypertension RESTING EKG: Sinus rhythm without any baseline ST-T wave changes STRESS EKG: No significant ST segment changes noted with LexiScan bolus REASON FOR TERMINATION: Protocol. PROCEDURE REPORT: Baseline heart rate 86 beats per minute with blood pressure of 153/92. Patient had no significant complaints. Patient was bolused with Lexiscan 0.4 mg intravenously followed by saline bolus. Heart rate at 2 minutes post bolus 111 with a blood pressure of 154/68. 3 minutes post bolus heart rate 100 with blood pressure of 144/82. No significant EKG changes were noted. Patient had no significant complaints during the procedure or postprocedure. Patient injected with Aminophyllin 75 mg at 3 minutes or later after Lexiscan bolus. CONCLUSIONS: Normal EKG and hemodynamic response to IV LexiScan. NUCLEAR DATA: At rest the patient was given 14.91 millicuries of technetium 99 sestamibi injected intravenously. As per protocol rest gated SPECT images were obtained. On day of stress test, the patient was given intravenous LexiScan at a dose of 0.4 mg in 5 mL intravenously, followed by flush with normal saline. Subsequently the stress dose of 46.4 millicuries of technetium 99 sestamibi was injected intravenously. As per protocol stress gated images were obtained. NUCLEAR INTERPRETATION: Both raw and processed data were used for interpretation. Visual, qualitative, computer-generated quantitative data was used. There was good myocardial uptake of technetium compound. Motion artifact and soft tissue attenuations were noted. Increased visceral uptake was noted. No definitive areas of transient perfusion defect noted, No definitive areas of fixed perfusion defect or scars noted. EKG gated imaging showed LV EF at 46 %, rest and stress gated EF similar visually. T. I D. ratio was 1.30. Lung heart ratio noted to be within normal limits 0.35. No significant extracardiac and abnormal radiotracer activities were noted. RV free wall uptake was noted to be WNL. IMPRESSION: Also refer to comments under nuclear interpretation. Also test results needs to be interpreted in the context of pretest probability. 1. No definitive areas of transient perfusion defect noted. 2. There is no definitive scintigraphic evidence of myocardial infarction/scar. 3. EKG gated imaging shows left ventricular ejection fraction of approx. 46 %. 4. Borderline transient ischemic dilatation noted. However most recent literature review suggest that there is no significant increased cardiovascular event rate in the absence of significant perfusion abnormalities. Journal of nuclear medicine October 2013. Clinical correlation requested as occasionally single vessel disease or balanced ischemia could be missed. In approximately 10 % of the cases Lexiscan may not cause adequate vasodilatory stress. RECOMMENDATIONS: Aggressive risk factor modification and medical management. Further evaluation may be needed if continued symptoms or other high risk indicators are noted on clinical evaluation. Close cardiology follow-up is also recommended. Clinical correlation with echocardiogram derived ejection fraction. Inability to exercise by itself can lead to increased cardiovascular event risks. Consider cardiology consultation and or follow-up if clinically indicated. I am available for cardiology evaluation and consultation if requested by the tombstone erector, unless patient already has a program manager slp. SIVA
[2017-11-28] MEDS ORDERED: REGADENOSON INJ 0.4 MG/5 ML DISP.SYRIN IV ONE (12:36)
[2017-11-28] MEDS ORDERED: AMINOPHYLLINE INJ/PF 250 MG/10 ML SDV IV ONE (12:36)
[2017-11-28] MEDS: AMLODIPINE BESYLATE 5 MG TABLET PO SCH (12:43)
--- NOTE | 2017-11-28 16:29 | PDOC PROGRESS REPORT ---
Subjective Progress Note for:: 11/28/17 Subjective:: Still with headaches, but much better. Patient was admitted status post fall/ palpitations/syncope. No further palpitations or syncope. No abdominal pain, no fever or chills, no chest pain or shortness of breath. She has been seen by Dr. Ocampo of cardiology who assisted to the further workup. Reason For Visit: SYNCOPE AND COLLAPSE,PALPITATIONS,HEADACHE Physical Exam Vital Signs: Temp Pulse Resp BP Pulse Ox 98.2 F 99 12 142/89 H 100 11/28/17 12:08 11/28/17 14:00 11/28/17 12:08 11/28/17 12:08 11/28/17 12:08 Intake & Output 11/27/17 11/28/17 11/29/17 06:59 06:59 06:59 Intake Total 2633 600 Balance 2633 600 Weight 133.4 kg GEN: NAD, well-developed, well-nourished HEENT: Normocephalic/atraumatic CV: RRR, NL S1S2 LUNGS: CTA bilaterally ABDOMEN Soft, NT, +BS EXTERMITIES: No e/c/c NEURO: Alert, oriented 3, no lateralizing weakness Results Laboratory Results: 11/28/17 05:12 11/28/17 05:12 11/28/17 11/28/17 11/28/17 05:12 05:12 05:12 WBC 10.3 RBC 4.59 Hgb 12.6 Hct 38.1 MCV 83 MCH 27.4 MCHC 32.9 RDW 15.3 H Plt Count 337 Seg Neutrophils % 65.0 Lymphocytes % 24.6 Monocytes % 7.0 Eosinophils % 3.1 Basophils % 0.3 Absolute Neutrophils 6.7 Absolute Lymphocytes 2.5 Absolute Monocytes 0.7 Absolute Eosinophils 0.3 Absolute Basophils 0.0 Sodium 138.0 Potassium 4.1 Chloride 103 Carbon Dioxide 23 Anion Gap 12 BUN 12 Creatinine 0.67 Est GFR ( Amer) > 60 Est GFR (Non-Af Amer) > 60 Glucose 214 H Calcium 9.7 Magnesium 1.9 TSH 1.24 Impressions: Cervical Spine CT 11/25/17 16:29 IMPRESSION: NO ACUTE OR SIGNIFICANT FINDINGS IN THE CERVICAL SPINE. Head CT 11/25/17 16:29 IMPRESSION: No acute intracranial findings. EVIDENCE OF ACUTE STROKE: NO. Shoulder X-Ray 11/25/17 16:29 IMPRESSION: NO RADIOGRAPHIC EVIDENCE OF ACUTE INJURY. Abdomen X-Ray 11/25/17 21:23 IMPRESSION: NON-SPECIFIC BOWEL GAS PATTERN. Venous Doppler Study 11/26/17 00:00 IMPRESSION: NO EVIDENCE OF DVT OR SVT IN THE RIGHT LEG. Assessment & Plan - Plan Summary Plan Summary: (1) Syncope and collapse Is this a current diagnosis for this admission?: Yes Plan: Cardiology evaluation for arrhythmia pending in progress. CT scan of the head negative. Follow-up echo and stress test results. Continue telemetry. Fall precautions. (2) Palpitations Is this a current diagnosis for this admission?: Yes Plan: Continue telemetry, await echocardiogram and stress test result, cardiology evaluation for arrhythmia and chest pain and progress. (3) Headache Is this a current diagnosis for this admission?: Yes Plan: Started after a fall. Continue Tylenol and ibuprofen not effective. Oxycodone for severe pain. CT head negative. (4) Left shoulder pain Qualifiers: Chronicity: acute Qualified Code(s): M25.512 - Pain in left shoulder Is this a current diagnosis for this admission?: Yes Plan: after fall, no fracture, no obvious bruising, pain management and monitor (5) Diabetes Qualifiers: Diabetes mellitus type: type 2 Diabetes mellitus terminal make up operator insulin use: without terminal make up operator use Diabetes mellitus complication status: without complication Qualified Code(s): E11.9 - Type 2 diabetes mellitus without complications Is this a current diagnosis for this admission?: Yes Plan: continue home regimen, monitor CBGs, diabetic diet, sliding scale insulin as needed (6) Hypertension Qualifiers: Hypertension type: unspecified Qualified Code(s): I10 - Essential (primary ) hypertension Is this a current diagnosis for this admission?: Yes Plan: amlodipine 5 mg was started by Dr. Fischer/, but will change to CATHERINE inhibitor given history of diabetes. Will work on pain control, will monitor blood pressure. As needed hydralazine available also. Possible discharge home in a.m. if stable/improved/depending on results of stress test.
[2017-11-28] MEDS ORDERED: IBUPROFEN 800 MG TABLET PO PRN (16:36)
--- NOTE | 2017-11-28 20:40 | PDOC PROGRESS REPORT ---
Subjective Progress Note for:: 11/28/17 Subjective:: Patient seems to be doing better with gradual improvement. Pt is denying any chest arm or neck discomfort. Patient denying any PND, orthopnea. Patient denied any sustained palpitations, dizziness, syncope, near syncope. Patient denying any fever chills. Patient denying any other significant discomfort. Patient is maintaining sinus rhythm. Review of systems: Rest review of systems negative. Medications: Medications have been reviewed. Reason For Visit: SYNCOPE AND COLLAPSE,PALPITATIONS,HEADACHE Physical Exam Vital Signs: Temp Pulse Resp BP Pulse Ox 98.2 F 87 16 141/66 H 99 11/28/17 15:46 11/28/17 19:00 11/28/17 15:46 11/28/17 15:46 11/28/17 15:46 Intake & Output 11/27/17 11/28/17 11/29/17 06:59 06:59 06:59 Intake Total 2633 1050 Balance 2633 1050 Weight 133.4 kg 133.4 kg Exam: GENERAL: well-nourished and in no acute distress. Alert and oriented x3 HEAD: Atraumatic, normocephalic. EYES: Pupils equal round and reactive to light, extraocular movements intact, sclera anicteric, conjunctiva are normal. ENT: TMs normal, nares patent, oropharynx clear without exudates. Moist mucous membranes. No oral ulcerations or bleeding gums noted NECK: supple without lymphadenopathy. Trachea is central. No cervical or axillary lymphadenopathy noted. Carotids are 2+, JVD WNL LUNGS: Respiration seems nonlabored, no significant accessory muscle action noted. Breath sounds clear to auscultation bilaterally and equal noted. No wheezes rales or rhonchi noted. No significant dullness noted on percussion. CHEST: Palpation of the chest wall shows no significant chest wall tenderness. 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 ABDOMEN: Soft, no significant tenderness appreciated, normoactive bowel sounds. No guarding, no rebound. No rigidity noted . No masses appreciated. EXTREMITIES: Pedal pulses are 1-2+, no calf tenderness noted. No clubbing or cyanosis. negative pedal edema noted NEUROLOGICAL: Focused neurological exam showed no significant neurologic deficit. Normal speech, no focal weakness appreciated. PSYCH: Normal mood, normal affect. Judgment and insight within normal limits. SKIN: No significant ecchymosis, skin is noted to be warm. MUSCULOSKELETAL EXAM: No significant acute joint swelling noted. Results Laboratory Results: 11/28/17 05:12 11/28/17 05:12 11/28/17 11/28/17 11/28/17 05:12 05:12 05:12 WBC 10.3 RBC 4.59 Hgb 12.6 Hct 38.1 MCV 83 MCH 27.4 MCHC 32.9 RDW 15.3 H Plt Count 337 Seg Neutrophils % 65.0 Lymphocytes % 24.6 Monocytes % 7.0 Eosinophils % 3.1 Basophils % 0.3 Absolute Neutrophils 6.7 Absolute Lymphocytes 2.5 Absolute Monocytes 0.7 Absolute Eosinophils 0.3 Absolute Basophils 0.0 Sodium 138.0 Potassium 4.1 Chloride 103 Carbon Dioxide 23 Anion Gap 12 BUN 12 Creatinine 0.67 Est GFR ( Amer) > 60 Est GFR (Non-Af Amer) > 60 Glucose 214 H Calcium 9.7 Magnesium 1.9 TSH 1.24 Impressions: Cervical Spine CT 11/25/17 16:29 IMPRESSION: NO ACUTE OR SIGNIFICANT FINDINGS IN THE CERVICAL SPINE. Head CT 11/25/17 16:29 IMPRESSION: No acute intracranial findings. EVIDENCE OF ACUTE STROKE: NO. Shoulder X-Ray 11/25/17 16:29 IMPRESSION: NO RADIOGRAPHIC EVIDENCE OF ACUTE INJURY. Abdomen X-Ray 11/25/17 21:23 IMPRESSION: NON-SPECIFIC BOWEL GAS PATTERN. Venous Doppler Study 11/26/17 00:00 IMPRESSION: NO EVIDENCE OF DVT OR SVT IN THE RIGHT LEG. Assessment & Plan - Diagnosis (1) Syncope and collapse Is this a current diagnosis for this admission?: Yes (2) Chest pain Qualifiers: Chest pain type: unspecified Qualified Code(s): R07.9 - Chest pain, unspecified Is this a current diagnosis for this admission?: Yes (3) Diabetes Qualifiers: Diabetes mellitus type: type 2 Diabetes mellitus senior care insulin use: without intermodal dispatcher use Diabetes mellitus complication status: without complication Qualified Code(s): E11.9 - Type 2 diabetes mellitus without complications Is this a current diagnosis for this admission?: Yes (4) Hypertension Qualifiers: Hypertension type: unspecified Qualified Code(s): I10 - Essential (primary ) hypertension Is this a current diagnosis for this admission?: Yes (5) Palpitations Is this a current diagnosis for this admission?: Yes (6) Panic disorder [episodic paroxysmal anxiety] Is this a current diagnosis for this admission?: Yes - Notes Notes: Patient would benefit from cardiac event monitoring as an outpatient. Recommend ambulating patient and checking for any orthostatic hypotension. Syncope: The cause is undetermined at this time. There could be multiple differential diagnosis. Nuclear stress test was negative for any pharmacologic stress-induced ischemia. 2D echo noted to be relatively unremarkable. Chest pain: Patient claims chest pain is resolved. This was evaluated with a nuclear stress test. Nuclear stress test was negative for any significant areas of ischemia or any significant areas of scar. The nuclear stress test is felt to be relatively low risk. Patient informed that occasionally single- vessel disease and balanced ischemia could be missed. Patient advised aggressive risk factor modification and medical therapy. Patient informed that further evaluation may become necessary if symptoms worsens or there is a development of new symptoms indicative of angina or angina equivalent symptom. Diabetes: Recommend good control of blood sugar. However should avoid any hypoglycemia and hyperglycemia. Patient being expertly managed by primary care M.D/hospitalist Hypertension: Blood pressure goal in this patient is 140/90 or less. This was discussed with the patient. Currently blood pressure under reasonable control. Better medication for this patient are CATHERINE inhibitor/ARB/beta gale etc. discussed side effects of uncontrolled hypertension and also severe hypotension. Palpitations: Patient does describe history of anxiety panic disorder. Could be related to that but since patient also had syncope, could be related to cardiac dysrhythmia. Patient describes episodes of episodic anxiety which she claims has caused palpitations at times.
[2017-11-28] MEDS: ATORVASTATIN CALCIUM 80 MG TABLET PO SCH (21:03)
[2017-11-29 06:37] LABS: ABSOLUTE BASOPHILS # (AUTO) 0.1 10^3/uL (0.0-0.2); ABSOLUTE EOSINOPHILS # (AUTO) 0.3 10^3/uL (0.0-0.6); ABSOLUTE LYMPHOCYTES (AUTO) 2.4 10^3/uL (0.5-4.7); ABSOLUTE MONOCYTES (AUTO) 0.7 10^3/uL (0.1-1.4); ABSOLUTE NEUT (AUTO) 5.5 10^3/uL (1.7-8.2); BASOPHILS % (AUTO) 0.8 % (0-2); EOSINOPHILS % (AUTO) 3.5 % (0-6); HEMATOCRIT 38.6 % (36.0-47.0); HEMOGLOBIN 12.6 g/dL (12.0-15.5); LYMPHOCYTES % (AUTO) 26.4 % (13-45); MEAN CORPUSCULAR HEMOGLOBIN 27.4 pg (27.0-33.4); MEAN CORPUSCULAR HGB CONC 32.7 g/dL (32.0-36.0); MEAN CORPUSCULAR VOLUME 84 fl (80-97); PLATELET COUNT 236 10^3/uL (150-450); RED CELL DISTRIBUTION WIDTH 15.1 % (11.5-14.0); SEGMENTED NEUTROPHILS % (AUTO) 61.3 % (42-78); TOTAL CELLS COUNTED % (AUTO) 100 %; WHITE BLOOD COUNT 8.9 10^3/uL (4.0-10.5)
[2017-11-29 06:41] LABS: ANION GAP 13 (5-19); BLOOD UREA NITROGEN 13 mg/dL (7-20); CARBON DIOXIDE 24 mmol/L (22-30); CHLORIDE 103 mmol/L (98-107); GLUCOSE 265 mg/dL (75-110); POTASSIUM 4.3 mmol/L (3.6-5.0); SODIUM 139.7 mmol/L (137-145)
[2017-11-29] MEDS: OXYCODONE-ACETAMINOPHEN 5-325 MG TABLET PO PRN (08:00)
[2017-11-29] MEDS: INSULIN LISPRO 100 UNIT/ML 3 ML VIAL SUBCUT PRN (08:00)
[2017-11-29] MEDS: ASPIRIN 81 MG TABLET, ENT COATED PO SCH (09:33)
[2017-11-29] MEDS: DOCUSATE SODIUM 100 MG CAPSULE PO SCH (09:33)
[2017-11-29] MEDS: LISINOPRIL 10 MG TABLET PO SCH (09:33)
[2017-11-29 11:38] VITALS: BP 140/83
--- NOTE | 2017-11-29 18:20 | PDOC PROGRESS REPORT ---
Subjective Progress Note for:: 11/29/17 Subjective:: Nuclear stress test and 2D echocardiogram results were discussed with the patient and her in detail. Discussed need for cardiac event monitoring as an outpatient. Patient seems to be doing better with gradual improvement. Pt is denying any chest arm or neck discomfort. Patient denying any PND, orthopnea. Patient denied any sustained palpitations, dizziness, syncope, near syncope. Patient denying any fever chills. Patient denying any other significant discomfort. Patient is maintaining sinus rhythm. Review of systems: Rest review of systems negative. Medications: Medications have been reviewed. Reason For Visit: SYNCOPE AND COLLAPSE,PALPITATIONS,HEADACHE Physical Exam Vital Signs: Temp Pulse Resp BP Pulse Ox 97.8 F 87 11 L 140/83 H 99 11/29/17 11:37 11/29/17 11:37 11/29/17 11:37 11/29/17 11:37 11/29/17 11:37 Intake & Output 11/28/17 11/29/17 11/30/17 06:59 06:59 06:59 Intake Total 2633 1755 Balance 2633 1755 Weight 133.4 kg 132.2 kg Exam: GENERAL: well-nourished and in no acute distress. Alert and oriented x3 HEAD: Atraumatic, normocephalic. EYES: Pupils equal round and reactive to light, extraocular movements intact, sclera anicteric, conjunctiva are normal. ENT: TMs normal, nares patent, oropharynx clear without exudates. Moist mucous membranes. No oral ulcerations or bleeding gums noted NECK: supple without lymphadenopathy. Trachea is central. No cervical or axillary lymphadenopathy noted. Carotids are 2+, JVD WNL LUNGS: Respiration seems nonlabored, no significant accessory muscle action noted. Breath sounds clear to auscultation bilaterally and equal noted. No wheezes rales or rhonchi noted. No significant dullness noted on percussion. CHEST: Palpation of the chest wall shows no significant chest wall tenderness. 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 ABDOMEN: Soft, no significant tenderness appreciated, normoactive bowel sounds. No guarding, no rebound. No rigidity noted . No masses appreciated. EXTREMITIES: Pedal pulses are 1-2+, no calf tenderness noted. No clubbing or cyanosis. negative pedal edema noted NEUROLOGICAL: Focused neurological exam showed no significant neurologic deficit. Normal speech, no focal weakness appreciated. PSYCH: Normal mood, normal affect. Judgment and insight within normal limits. SKIN: No significant ecchymosis, skin is noted to be warm. MUSCULOSKELETAL EXAM: No significant acute joint swelling noted. Results Laboratory Results: 11/29/17 05:55 11/29/17 05:55 11/29/17 11/29/17 05:55 05:55 WBC 8.9 RBC 4.60 Hgb 12.6 Hct 38.6 MCV 84 MCH 27.4 MCHC 32.7 RDW 15.1 H Plt Count 236 Seg Neutrophils % 61.3 Lymphocytes % 26.4 Monocytes % 8.0 Eosinophils % 3.5 Basophils % 0.8 Absolute Neutrophils 5.5 Absolute Lymphocytes 2.4 Absolute Monocytes 0.7 Absolute Eosinophils 0.3 Absolute Basophils 0.1 Sodium 139.7 Potassium 4.3 Chloride 103 Carbon Dioxide 24 Anion Gap 13 BUN 13 Creatinine 0.67 Est GFR ( Amer) > 60 Est GFR (Non-Af Amer) > 60 Glucose 265 H Calcium 9.0 EKG Comments: Telemetry shows sinus rhythm without any sustained tachycardia or bradycardia. Impressions: Cervical Spine CT 11/25/17 16:29 IMPRESSION: NO ACUTE OR SIGNIFICANT FINDINGS IN THE CERVICAL SPINE. Head CT 11/25/17 16:29 IMPRESSION: No acute intracranial findings. EVIDENCE OF ACUTE STROKE: NO. Shoulder X-Ray 11/25/17 16:29 IMPRESSION: NO RADIOGRAPHIC EVIDENCE OF ACUTE INJURY. Abdomen X-Ray 11/25/17 21:23 IMPRESSION: NON-SPECIFIC BOWEL GAS PATTERN. Venous Doppler Study 11/26/17 00:00 IMPRESSION: NO EVIDENCE OF DVT OR SVT IN THE RIGHT LEG. Assessment & Plan - Diagnosis (1) Syncope and collapse Is this a current diagnosis for this admission?: Yes (2) Chest pain Qualifiers: Chest pain type: unspecified Qualified Code(s): R07.9 - Chest pain, unspecified Is this a current diagnosis for this admission?: Yes (3) Diabetes Qualifiers: Diabetes mellitus type: type 2 Diabetes mellitus penitentiary insulin use: without penitentiary use Diabetes mellitus complication status: without complication Qualified Code(s): E11.9 - Type 2 diabetes mellitus without complications Is this a current diagnosis for this admission?: Yes (4) Hypertension Qualifiers: Hypertension type: unspecified Qualified Code(s): I10 - Essential (primary ) hypertension Is this a current diagnosis for this admission?: Yes (5) Palpitations Is this a current diagnosis for this admission?: Yes (6) Panic disorder [episodic paroxysmal anxiety] Is this a current diagnosis for this admission?: Yes - Notes Notes: Patient seen and examined. Patient is felt stable enough for discharge. Discussed further monitoring as an outpatient by a event monitor. Patient would benefit from cardiac event monitoring as an outpatient. Nuclear stress test was negative for any pharmacologic stress-induced ischemia. 2D echo noted to be relatively unremarkable. Syncope: So far workup has been negative. Will consider further cardiac monitoring and a tilt table study as an outpatient. Chest pain: Patient claims chest pain is resolved. This was evaluated with a nuclear stress test. Nuclear stress test was negative for any significant areas of ischemia or any significant areas of scar. The nuclear stress test is felt to be relatively low risk. Patient informed that occasionally single- vessel disease and balanced ischemia could be missed. Patient advised aggressive risk factor modification and medical therapy. Patient informed that further evaluation may become necessary if symptoms worsens or there is a development of new symptoms indicative of angina or angina equivalent symptom. Diabetes: Recommend good control of blood sugar. However should avoid any hypoglycemia and hyperglycemia. Patient being expertly managed by primary care M.D/hospitalist Hypertension: Blood pressure goal in this patient is 140/90 or less. This was discussed with the patient. Currently blood pressure under reasonable control. Better medication for this patient are CATHERINE inhibitor/ARB/beta gale etc. discussed side effects of uncontrolled hypertension and also severe hypotension. Palpitations: Patient does describe history of anxiety panic disorder. Could be related to that but since patient also had syncope, could be related to cardiac dysrhythmia. Will consider cardiac event monitoring and tilt table study as an outpatient. Patient describes episodes of episodic anxiety which she claims has caused palpitations at times. - Time Time with patient: 15-25 minutes - CODE STATUS was discussed, patient remains full code. Surrogate decision-maker unchanged. Multiple medical problems were addressed. More than 50% of the time spent coordinating care, discussing management plans with involved caregivers. Management plans discussed with involved personnels. Medical decision making was of moderate to high complexity , patient's has multiple comorbidities. Medications reviewed and adjusted accordingly: Yes
--- NOTE | 2017-12-21 09:05 | PDOC DISCHARGE SUMMARY ---
General - Admit/Disc Date/PCP Admission Date/Primary Care Provider: 11/27/17 17:32 Discharge Date: 11/29/17 - Additional Information Resuscitation Status: Full Code Discharge Diet: Cardiac, Diabetic Discharge Activity: Activity As Tolerated Prescriptions: Atorvastatin Calcium [Lipitor 10 mg Tablet] 10 mg PO QHS 30 Days #30 tablet Glipizide [Glipizide ER] 5 mg PO DAILY #30 tab.er.24 Ibuprofen [Motrin 800 mg Tablet] 800 mg PO Q8HP PRN #60 tablet PRN Reason: Lisinopril [Prinivil 10 mg Tablet] 10 mg PO DAILY 30 Days #30 tablet Oxycodone HCl/Acetaminophen [Percocet 5-325 mg Tablet] 1 tab PO Q8HP PRN 3 Days #10 tablet PRN Reason: Home Medications: Metformin HCl [Glucophage] 500 mg PO BID 09/30/16 Atorvastatin Calcium [Lipitor 10 mg Tablet] 10 mg PO QHS 30 Days #30 tablet 10/14 Glipizide [Glipizide ER] 5 mg PO DAILY #30 tab.er.24 11/29/17 Ibuprofen [Motrin 800 mg Tablet] 800 mg PO Q8HP PRN #60 tablet 11/29/17 Lisinopril [Prinivil 10 mg Tablet] 10 mg PO DAILY 30 Days #30 tablet 11/29/17 Oxycodone HCl/Acetaminophen [Percocet 5-325 mg Tablet] 1 tab PO Q8HP PRN 3 Days #10 tablet 11/29/17 History of Present Illness History of Present Illness: Patient admitted after presenting as in HPI below: "GEGE DOSS is a 37 year old female with a past medical history of recurrent nephrolithiasis, morbid obesity, hypertension and diabetes. Patient presents to the ED after an episode of tachycardia during housework which resulted in brief loss of consciousness and injury and pain to her left shoulder. Patient denied previous episode, chest pain, nausea vomiting or diaphoresis. Patient denied hypoglycemic events; instead her average blood sugar is usually poorly controlled at 250. She denied any recent changes in medications. Initial evaluation in the ED was unremarkable." Hospital Course Hospital Course: Patient was admitted to hospitalist service telemetry and managed as follows: (1) Syncope and collapse Is this a current diagnosis for this admission?: Yes Plan: CT scan of the head negative. She ruled out for CT with serial troponin 3. Cardiology Dr. Ocampo evaluated for arrhythmia and recommended echo and stress test results. Echo was normal except grade 2 diastolic dysfunction. Stress test was negative. Telemetry evaluation revealed no arrhythmia. Patient had no recurrent syncope. Per cardiology, she will need event monitor. She is to follow-up with Dr. Ocampo in clinical who will arrange for this as well as further workup as may be needed. (2) Palpitations Is this a current diagnosis for this admission?: Yes Plan: Cardiology evaluation for arrhythmia and chest pain as in #1 above. (3) Headache Is this a current diagnosis for this admission?: Yes Plan: Started after a fall. CT scan of the head negative. She was managed for pain, including Tylenol and ibuprofen. She received a few doses of Percocet with those were not very effective and they helped. Headache is much better. She is to follow-up with her PCP if continued symptoms. (4) Left shoulder pain Qualifiers: Chronicity: acute Qualified Code(s): M25.512 - Pain in left shoulder Is this a current diagnosis for this admission?: Yes Plan: Started after fall, no fracture, no obvious bruising, continue pain management and f/u with pcp (5) Diabetes Qualifiers: Diabetes mellitus type: type 2 Diabetes mellitus shelter insulin use: without shelter use Diabetes mellitus complication status: without complication Qualified Code(s): E11.9 - Type 2 diabetes mellitus without complications Is this a current diagnosis for this admission?: Yes Plan: Blood glucose was running high and patient treated with sliding scale insulin. Glipizide was added to her home metformin. She is to follow-up with her primary care physician for adjustment of medications. (6) Hypertension Qualifiers: Hypertension type: unspecified Qualified Code(s): I10 - Essential (primary ) hypertension Is this a current diagnosis for this admission?: Yes Plan: Blood pressures were elevated. Patient now on lisinopril 10 mg daily and tolerated. She is to follow-up with her PCP for adjustment as needed. (6) hyperlipidemia Is this a current diagnosis for this admission?: Yes Plan: Cholesterol was elevated at 221, LDL 147, triglyceride 178, HDL 44. Patient started on Lipitor, being discharged on 10 mg nightly, especially as she is diabetic. Follow-up with PCP and teacher advisor. Physical Exam Vital Signs: Temp Pulse Resp BP Pulse Ox 97.8 F 87 11 L 134/87 H 99 11/29/17 07:26 11/29/17 07:26 11/29/17 07:26 11/29/17 07:26 11/29/17 07:26 Intake & Output 11/28/17 11/29/17 11/30/17 06:59 06:59 06:59 Intake Total 2633 1755 Balance 2633 1755 Weight 133.4 kg 132.2 kg GEN: NAD, well-developed, well-nourished HEENT: Normocephalic/atraumatic CV: RRR, NL S1S2 LUNGS: CTA bilaterally ABDOMEN Soft, NT, +BS EXTERMITIES: No e/c/c NEURO: Alert, oriented 3, no lateralizing weakness Results Laboratory Results: 11/29/17 05:55 11/29/17 05:55 11/29/17 11/29/17 05:55 05:55 WBC 8.9 RBC 4.60 Hgb 12.6 Hct 38.6 MCV 84 MCH 27.4 MCHC 32.7 RDW 15.1 H Plt Count 236 Seg Neutrophils % 61.3 Lymphocytes % 26.4 Monocytes % 8.0 Eosinophils % 3.5 Basophils % 0.8 Absolute Neutrophils 5.5 Absolute Lymphocytes 2.4 Absolute Monocytes 0.7 Absolute Eosinophils 0.3 Absolute Basophils 0.1 Sodium 139.7 Potassium 4.3 Chloride 103 Carbon Dioxide 24 Anion Gap 13 BUN 13 Creatinine 0.67 Est GFR ( Amer) > 60 Est GFR (Non-Af Amer) > 60 Glucose 265 H Calcium 9.0 Impressions: Cervical Spine CT 11/25/17 16:29 IMPRESSION: NO ACUTE OR SIGNIFICANT FINDINGS IN THE CERVICAL SPINE. Head CT 11/25/17 16:29 IMPRESSION: No acute intracranial findings. EVIDENCE OF ACUTE STROKE: NO. Shoulder X-Ray 11/25/17 16:29 IMPRESSION: NO RADIOGRAPHIC EVIDENCE OF ACUTE INJURY. Abdomen X-Ray 11/25/17 21:23 IMPRESSION: NON-SPECIFIC BOWEL GAS PATTERN. Venous Doppler Study 11/26/17 00:00 IMPRESSION: NO EVIDENCE OF DVT OR SVT IN THE RIGHT LEG. Qualifiers - * PATIENT BEING DISCHARGED WITH ANY OF THE FOLLOWING DIAGNOSIS: No Plan Discharge Plan: Patient follow-up with her primary care physician within 1 week, sooner as needed. Patient also to follow-up with Dr. Ocampo of cardiology clinic, patient has been made for December 07, at 8:30 AM. I spoke with Dr. Ocampo and he apparently will evaluate patient with an event monitor as outpatient. Time Spent: Greater than 30 Minutes
== END 2017-11-29 13:59 | disposition home or self-care (01) | DRG 312 ==
LOC: ER 13:51 → EH 21:59 → 3W 23:27 → OBSVTOIN 11-27 17:32
PROVIDERS: ADMIT Internal Medicine; ATTEND Internal Medicine
DX: R55 Syncope and collapse (principal); Z68.42 Body mass index [BMI] 45.0-49.9, adult; R07.9 Chest pain, unspecified; R00.2 Palpitations; I10 Essential (primary) hypertension; E11.65 Type 2 diabetes mellitus with hyperglycemia; E78.00 Pure hypercholesterolemia, unspecified; M25.512 Pain in left shoulder; R51 Headache; F41.0 Panic disorder [episodic paroxysmal anxiety]; E66.01 Morbid (severe) obesity due to excess calories; W18.30XA Fall on same level, unspecified, initial encounter; Y93.E9 Activity, other interior property and clothing maintenance; Y92.009 Unspecified place in unspecified non-institutional (private) residence as the place of occurrence of the external cause
CPT/HCPCS: 36415; 70450; 72125; 74019; 78452; 80048; 80053; 80061; 81001; 81025; 82550; 82553; 82962; 83036; 83735; 84443; 84484; 85025; 85027; 93005; 93010; 93017; 93306; 93971; 96361; 96374; 96375; 99285; A9500; G0378; J0280; J0360; J1170; J1200; J1815; J1885; J2405; J2765; J2785; J3010; J3490; J7030; Q9969

== ENCOUNTER 2018-04-09 16:24 | Emergency (ER) | payer SELFPAY ==
[2018-04-09] MEDS ORDERED: ACETAMINOPHEN 325 MG TABLET PO ONE (17:40)
--- NOTE | 2018-04-09 17:47 | ER Document Report ---
ED Respiratory Problem - General Chief Complaint: Cold Symptoms Stated Complaint: CONGESTION,COUGH, HEADACHE Time Seen by Provider: 04/09/18 17:34 Mode of Arrival: Ambulatory Information source: Patient Notes: 38-year-old female presents to ED for complaint of cough congestion the last 4 days. She states now that it hurts to cough. 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 She is alert oriented respirations regular and unlabored lungs are clear to auscultation. TRAVEL OUTSIDE OF THE [place] IN LAST 30 DAYS: No - HPI Patient complains to provider of: Cough, Short of breath Onset: Other - 4 days Duration: Continuous Initiating Event: URI Quality of pain: Achy Severity: Moderate Pain Level: 3 Short of Breath: Mild Cough: Nonproductive Sputum amount: None Associated symptoms: Cough, PND, Runny nose, Sinus pain/pressure Similar symptoms previously: Yes Recently seen / treated by doctor: No - Related Data Allergies/Adverse Reactions: hydrocodone Allergy (Verified 04/09/18 16:24) tramadol Allergy (Verified 04/09/18 16:24) Past Medical History - General Information source: Patient - Social History Smoking Status: Never Smoker Cigarette use (# per day): No Chew tobacco use (# tins/day): No Smoking Education Provided: No Frequency of alcohol use: None Lives with: Intermediate Family History: CAD, Thyroid Disfunction Patient has suicidal ideation: No Patient has homicidal ideation: No - Past Medical History Cardiac Medical History: Reports: Hx Hypercholesterolemia Pulmonary Medical History: Reports: None EENT Medical History: Reports: None Endocrine Medical History: Reports: Hx Diabetes Mellitus Type 2 Renal/ Medical History: Reports: Hx Kidney Stones Malignancy Medical History: Reports: None GI Medical History: Reports: None Musculoskeletal Medical History: Reports None Skin Medical History: Reports None Psychiatric Medical History: Reports: None Traumatic Medical History: Reports: None Infectious Medical History: Reports: None Past Surgical History: Reports: Hx Cholecystectomy, Hx Gynecologic Surgery - Uterine ablation - Immunizations Hx Diphtheria, Pertussis, Tetanus Vaccination: Yes Review of Systems - Review of Systems Constitutional: No symptoms reported EENT: Nose congestion, Nose discharge, Sinus pressure, Sinus discharge Cardiovascular: No symptoms reported Respiratory: Cough, Short of breath Gastrointestinal: No symptoms reported Genitourinary: No symptoms reported Female Genitourinary: No symptoms reported Musculoskeletal: No symptoms reported Skin: No symptoms reported Hematologic/Lymphatic: No symptoms reported Neurological/Psychological: No symptoms reported -: Yes All other systems reviewed and negative Physical Exam - Vital signs Vitals: Temp Pulse Resp BP Pulse Ox 98.5 F 98 20 132/91 H 98 04/09/18 16:27 04/09/18 16:27 04/09/18 16:27 04/09/18 16:27 04/09/18 16:27 Interpretation: Normal - General General appearance: Appears well, Alert - HEENT Head: Normocephalic, Atraumatic Eyes: Normal Pupils: PERRL - Respiratory Respiratory status: No respiratory distress Chest status: Nontender Breath sounds: Nonproductive cough Chest palpation: Normal - Cardiovascular Rhythm: Regular Heart sounds: Normal auscultation Murmur: No - Abdominal Inspection: Normal Distension: No distension Bowel sounds: Normal Tenderness: Nontender Organomegaly: No organomegaly - Back Back: Normal, Nontender - Extremities General upper extremity: Normal inspection, Nontender, Normal color, Normal ROM , Normal temperature General lower extremity: Normal inspection, Nontender, Normal color, Normal ROM , Normal temperature, Normal weight bearing. No: Tamanna's sign - Neurological Neuro grossly intact: Yes Cognition: Normal Orientation: AAOx4 Hawley Coma Scale Eye Opening: Spontaneous Hawley Coma Scale Verbal: Oriented Maggie Coma Scale Motor: Obeys Commands Maggie Coma Scale Total: 15 Speech: Normal Motor strength normal: LUE, RUE, LLE, RLE Sensory: Normal - Psychological Associated symptoms: Normal affect, Normal mood - Skin Skin Temperature: Warm Skin Moisture: Dry Skin Color: Normal Course - Re-evaluation Re-evalutation: 04/09/18 18:35 Xray discussed with patient and written report given to patient to follow-up with her primary doctor. Patient was discharged home with instructions on upper respiratory infection. Patient verbalized understanding and agreement with treatment plan. 04/09/18 19:21 - Vital Signs Vital signs: Temp Pulse Resp BP Pulse Ox 99.2 F 100 19 133/107 H 98 04/09/18 18:36 04/09/18 18:36 04/09/18 18:36 04/09/18 18:36 04/09/18 18:36 - Diagnostic Test Radiology reviewed: Image reviewed, Reports reviewed Discharge - Discharge Clinical Impression: URI (upper respiratory infection) Qualifiers: URI type: unspecified URI Qualified Code(s): J06.9 - Acute upper respiratory infection, unspecified Condition: Stable Disposition: HOME, SELF-CARE Additional Instructions: UPPER RESPIRATORY ILLNESS: You have a viral infection of the respiratory passages -- a "cold." This common infection causes nasal congestion, drainage, and often sore throat and cough. It is highly contagious. The disease usually lasts about 10 to 14 days. There is no "cure" for the viral infection -- it must run its course. If there is a complication, such as bacterial infection in the nose, sinuses, middle ear, or bronchial tubes, antibiotics may be required. The antibiotics won't affect the virus. Drink plenty of fluids. A humidifier may help. An expectorant medication or decongestant may make you more comfortable. Use acetaminophen or ibuprofen for fever or aches. See the doctor if fever persists over two days, if there is any significant worsening of your symptoms, or if you simply fail to improve as expected. DECONGESTANT MEDICATION: A decongestant medicine has been prescribed. Often this medicine is combined in the same tablet with an antihistamine or expectorant. This type of medicine is helpful in treating a bad cold or sinus condition, as well as in treatment of the nasal congestion of hay fever. It is not of much benefit for lung infections. Decongestant medicines are related to stimulants. They can cause an increase in blood pressure and heart rate. Persons with heart disease and high blood pressure should not take decongestants without discussing this with the physician. If you develop palpitations, chest pain, headache, or tremors, stop the medicine and consult your physician. USE OF ACETAMINOPHEN (Tylenol): Acetaminophen may be taken for pain relief or fever control. It's much safer than aspirin, offering a wider range of "safe" dosages. It is safe during . Some brand names are Tylenol, Panadol, Datril, Anacin 3, Tempra, and Liquiprin. Acetaminophen can be repeated every four hours. The following are maximum recommended dosages: >89 pounds or adults 650 mg to 900 mg Acetaminophen can be repeated every four hours. Maximum dose not to exceed 4000 mg a day. FOLLOW-UP CARE: If you have been referred to a physician for follow-up care, call the physician s office for an appointment as you were instructed or within the next two days. If you experience worsening or a significant change in your symptoms, notify the physician immediately or return to the Emergency Department at any time for re-evaluation. Forms: Elevated Blood Pressure, Return to Work Referrals: NAVNEET CASTANON PA-C [NO LOCAL MD] - Follow up as needed
--- NOTE | 2018-04-09 18:10 | RADIOLOGY REPORT (SQ) ---
EXAM DESCRIPTION: CHEST 2 VIEWS COMPLETED DATE/TIME: 04/09/2018 5:52 pm REASON FOR STUDY: cough congestion pain with cough COMPARISON: None. EXAM PARAMETERS: NUMBER OF VIEWS: two views TECHNIQUE: Digital Frontal and Lateral radiographic views of the chest acquired. RADIATION DOSE: NA LIMITATIONS: none FINDINGS: LUNGS AND PLEURA: No opacities, masses or pneumothorax. No pleural effusion. MEDIASTINUM AND HILAR STRUCTURES: No masses or contour abnormalities. HEART AND VASCULAR STRUCTURES: Heart normal size. No evidence for failure. BONES: No acute findings. HARDWARE: None in the chest. OTHER: No other significant finding. IMPRESSION: NO ACUTE RADIOGRAPHIC FINDING IN THE CHEST. TECHNICAL DOCUMENTATION: JOB ID: [id number] [employer]- All Rights Reserved Reading location - IP/workstation name: [email or web address]
[2018-04-09 18:39] VITALS: BP 133/107
== END 2018-04-09 18:41 | disposition home or self-care (01) ==
LOC: ER 16:24
DX: J06.9 Acute upper respiratory infection, unspecified (principal); R05 Cough; R06.02 Shortness of breath; R09.82 Postnasal drip; J34.89 Other specified disorders of nose and nasal sinuses; E11.9 Type 2 diabetes mellitus without complications; R09.81 Nasal congestion; Z88.5 Allergy status to narcotic agent
CPT/HCPCS: 71046; 99284

== ENCOUNTER 2018-06-05 15:32 | Emergency (ER) | payer SELFPAY ==
--- NOTE | 2018-06-05 16:16 | ER Document Report ---
HPI - HPI Pain Level: 4 - REPRODUCTIVE Reproductive: DENIES: : Past Medical History - General Information source: Patient - Social History Smoking Status: Never Smoker Lives with: Family Family History: CAD, Thyroid Disfunction - Past Medical History Cardiac Medical History: Reports: Hx Hypercholesterolemia Pulmonary Medical History: Endocrine Medical History: Reports: Hx Diabetes Mellitus Type 2 Renal/ Medical History: Reports: Hx Kidney Stones Musculoskeletal Medical History: Past Surgical History: Reports: Hx Cholecystectomy, Hx Gynecologic Surgery - Uterine ablation - Immunizations Hx Diphtheria, Pertussis, Tetanus Vaccination: Yes Vertical Provider Document - CONSTITUTIONAL Agree With Documented VS: Yes Exam Limitations: No Limitations - INFECTION CONTROL TRAVEL OUTSIDE OF THE [place] IN LAST 30 DAYS: No Course - Vital Signs Vital signs: Temp Pulse Resp BP Pulse Ox 98.4 F 93 16 126/77 H 100 06/05/18 15:39 06/05/18 15:39 06/05/18 15:39 06/05/18 15:39 06/05/18 15:39
--- NOTE | 2018-06-05 16:45 | ER Document Report ---
ED Medical Screen (RME) - General Chief Complaint: Breathing Difficulty Stated Complaint: HIP/LEG PAIN Time Seen by Provider: 06/05/18 15:42 Notes: 38-year-old female morbidly obese that does not take hormones or smoke is complaining of mid thoracic back pain that started this morning when she woke up and it is dull constant level 3 goes up to level 5 and is much worse when she takes a deep breath. She has a history of a collapsed lung on the left years ago. She denies anterior chest pain or shortness of breath. She is also complaining of right sided sacral iliac joint area pain with sciatica down into her lateral right thigh. No recent upper respiratory infection. No fever or chills. Back is nontender and lungs are clear. 06/05/18 16:26 Consult who recommends getting a CTA and the patient is willing to get that test. sHe has a history of a collapsed lung many years ago. 06/05/18 16:42 TRAVEL OUTSIDE OF THE [place] IN LAST 30 DAYS: No - Related Data Allergies/Adverse Reactions: hydrocodone Allergy (Verified 06/05/18 15:34) tramadol Allergy (Verified 06/05/18 15:34) Past Medical History - Social History Chew tobacco use (# tins/day): No Frequency of alcohol use: None Drug Abuse: None - Past Medical History Cardiac Medical History: Reports: Hx Hypercholesterolemia Pulmonary Medical History: Endocrine Medical History: Reports: Hx Diabetes Mellitus Type 2. Denies: Hx Graves' Disease, Hx Hyperthyroidism, Hx Hypothyroidism Renal/ Medical History: Reports: Hx Kidney Stones. Denies: Hx End Stage Renal Disease, Hx Ovarian Cysts, Hx Peritoneal Dialysis, Hx Pelvic Inflammatory Disease Malignancy Medical History: Denies: Hx Breast Cancer, Hx Cervical Cancer, Hx Leukemia, Hx Ovarian Cancer GI Medical History: Denies: Hx Crohn's Disease, Hx Gastroesophageal Reflux Disease, Hx Hiatal Hernia, Hx Irritable Bowel, Hx Liver Failure, Hx Pancreatitis , Hx Ulcer Musculoskeltal Medical History: Denies Hx Multiple Sclerosis Psychiatric Medical History: Denies: Hx Dementia, Hx Depression Infectious Medical History: Denies: Hx HIV Past Surgical History: Reports: Hx Cholecystectomy, Hx Gynecologic Surgery - Uterine ablation. Denies: Hx Appendectomy, Hx Bowel Surgery, Hx Section, Hx Colostomy, Hx Coronary Artery Bypass Graft, Hx Gastric Bypass Surgery, Hx Herniorrhaphy, Hx Hysterectomy, Hx Mastectomy, Hx Pacemaker, Hx Tonsillectomy, Hx Tubal Ligation - Immunizations Hx Diphtheria, Pertussis, Tetanus Vaccination: Yes History of Influenza Vaccine for 04/2017 - 09/2017 Season: Yes Physical Exam - Vital signs Vitals: Temp Pulse Resp BP Pulse Ox 98.4 F 93 16 126/77 H 100 06/05/18 15:39 06/05/18 15:39 06/05/18 15:39 06/05/18 15:39 06/05/18 15:39 Course - Vital Signs Vital signs: Temp Pulse Resp BP Pulse Ox 98.4 F 93 16 126/77 H 100 06/05/18 15:39 06/05/18 15:39 06/05/18 15:39 06/05/18 15:39 06/05/18 15:39
[2018-06-05] MEDS ORDERED: HYDROCODONE/ACETAMINOPHEN 5-325 MG TABLET PO ONE (16:54)
[2018-06-05 17:01] LABS: ABSOLUTE BASOPHILS # (AUTO) 0.1 10^3/uL (0.0-0.2); ABSOLUTE EOSINOPHILS # (AUTO) 0.2 10^3/uL (0.0-0.6); ABSOLUTE LYMPHOCYTES (AUTO) 2.9 10^3/uL (0.5-4.7); ABSOLUTE MONOCYTES (AUTO) 0.8 10^3/uL (0.1-1.4); ABSOLUTE NEUT (AUTO) 6.8 10^3/uL (1.7-8.2); BASOPHILS % (AUTO) 0.5 % (0-2); EOSINOPHILS % (AUTO) 2.3 % (0-6); HEMATOCRIT 37.6 % (36.0-47.0); HEMOGLOBIN 12.8 g/dL (12.0-15.5); LYMPHOCYTES % (AUTO) 27.2 % (13-45); MEAN CORPUSCULAR HEMOGLOBIN 29.9 pg (27.0-33.4); MEAN CORPUSCULAR HGB CONC 33.9 g/dL (32.0-36.0); MEAN CORPUSCULAR VOLUME 88 fl (80-97); MONOCYTES % (AUTO) 6.9 % (3-13); PLATELET COUNT 344 10^3/uL (150-450); RED BLOOD COUNT 4.27 10^6/uL (3.72-5.28); RED CELL DISTRIBUTION WIDTH 13.9 % (11.5-14.0); SEGMENTED NEUTROPHILS % (AUTO) 63.1 % (42-78); TOTAL CELLS COUNTED % (AUTO) 100 %; WHITE BLOOD COUNT 10.8 10^3/uL (4.0-10.5)
[2018-06-05 17:18] LABS: ALANINE AMINOTRANSFERASE 34 U/L (9-52); ALBUMIN 4.6 g/dL (3.5-5.0); ALKALINE PHOSPHATASE 126 U/L (38-126); ANION GAP 15 (5-19); ASPARTATE AMINO TRANSFERASE 36 U/L (14-36); BILIRUBIN,DIRECT 0.3 mg/dL (0.0-0.4); BILIRUBIN,TOTAL 0.6 mg/dL (0.2-1.3); BLOOD UREA NITROGEN 8 mg/dL (7-20); CALCIUM 9.8 mg/dL (8.4-10.2); CARBON DIOXIDE 23 mmol/L (22-30); CHLORIDE 100 mmol/L (98-107); GLUCOSE 294 mg/dL (75-110); POTASSIUM 4.7 mmol/L (3.6-5.0); SODIUM 138.1 mmol/L (137-145); TOTAL PROTEIN 8.1 g/dL (6.3-8.2)
--- NOTE | 2018-06-05 17:37 | ER Document Report ---
ED General - General Chief Complaint: Breathing Difficulty Stated Complaint: HIP/LEG PAIN Time Seen by Provider: 06/05/18 15:42 Mode of Arrival: Ambulatory Information source: Patient Notes: Patient is a 38-year-old morbidly obese female with a past medical history notable for pneumothorax at 5 years of age. She does not smoke or take hormone containing medications. She presents to the emergency department today complaining of pain with breathing, it is dull and constant level 3 that goes up to a level 5 with deep breathing. She denies shortness of breath or anterior chest pain. She has not had a respiratory infection recently. She denies fevers or chills. Back is nontender and lungs are clear. She also admits to some hip and leg pain which she attributes to her chronic history of sciatica. She took Motrin for the hip pain last night. Patient is in no acute distress, with a even and unlabored respirations, she is ambulating steadily with a regular gait. TRAVEL OUTSIDE OF THE [place] IN LAST 30 DAYS: No - HPI Onset/Duration: Sudden Quality of pain: Achy, Dull Severity: Moderate Pain Level: 3 Associated symptoms: Rhinnorhea Exacerbated by: Deep breathing Relieved by: Denies Similar symptoms previously: No Recently seen / treated by doctor: No - Related Data Allergies/Adverse Reactions: hydrocodone Adverse Reaction (Verified 06/05/18 17:16) Vomiting tramadol Adverse Reaction (Verified 06/05/18 17:16) Vomiting Past Medical History - General Information source: Patient - Social History Smoking Status: Never Smoker Chew tobacco use (# tins/day): No Frequency of alcohol use: None Drug Abuse: None Family History: CAD, Thyroid Disfunction Patient has suicidal ideation: No Patient has homicidal ideation: No - Past Medical History Cardiac Medical History: Reports: Hx Hypercholesterolemia Pulmonary Medical History: Endocrine Medical History: Reports: Hx Diabetes Mellitus Type 2. Denies: Hx Graves' Disease, Hx Hyperthyroidism, Hx Hypothyroidism Renal/ Medical History: Reports: Hx Kidney Stones. Denies: Hx End Stage Renal Disease, Hx Ovarian Cysts, Hx Peritoneal Dialysis, Hx Pelvic Inflammatory Disease Malignancy Medical History: Denies: Hx Breast Cancer, Hx Cervical Cancer, Hx Leukemia, Hx Ovarian Cancer GI Medical History: Denies: Hx Crohn's Disease, Hx Gastroesophageal Reflux Disease, Hx Hiatal Hernia, Hx Irritable Bowel, Hx Liver Failure, Hx Pancreatitis , Hx Ulcer Musculoskeletal Medical History: Denies Hx Multiple Sclerosis Psychiatric Medical History: Denies: Hx Dementia, Hx Depression Infectious Medical History: Denies: Hx HIV Past Surgical History: Reports: Hx Cholecystectomy, Hx Gynecologic Surgery - Uterine ablation. Denies: Hx Appendectomy, Hx Bowel Surgery, Hx Section, Hx Colostomy, Hx Coronary Artery Bypass Graft, Hx Gastric Bypass Surgery, Hx Herniorrhaphy, Hx Hysterectomy, Hx Mastectomy, Hx Pacemaker, Hx Tonsillectomy, Hx Tubal Ligation - Immunizations Hx Diphtheria, Pertussis, Tetanus Vaccination: Yes Review of Systems - Review of Systems Notes: REVIEW OF SYSTEMS: CONSTITUTIONAL : Denies fever, chills, or sweats. EENT: Denies eye, ear, throat, or mouth pain or symptoms. Denies throat, tongue, or mouth swelling or difficulty swallowing. CARDIOVASCULAR: Denies chest pain. Denies palpitations or racing or irregular heart beat. Denies ankle edema. RESPIRATORY: Positive for pain with deep breathing, as noted in HPI. Denies cough, cold, or chest congestion. Denies shortness of breath, difficulty breathing, or wheezing. GASTROINTESTINAL: Denies abdominal pain or distention. Denies nausea, vomiting , or diarrhea. Denies blood in vomitus, stools, or per rectum. Denies black, tarry stools. Denies constipation. GENITOURINARY: Denies difficulty urinating, painful urination, burning, frequency, blood in urine, or discharge. FEMALE GENITOURINARY: Denies vaginal bleeding, heavy or abnormal periods, irregular periods. Denies vaginal discharge or odor. MUSCULOSKELETAL: Denies neck pain or stiffness. See HPI SKIN: Denies rash, lesions or sores. HEMATOLOGIC : Denies easy bruising or bleeding. LYMPHATIC: Denies swollen, enlarged glands. NEUROLOGICAL: Denies confusion or altered mental status. Denies passing out or loss of consciousness. Denies dizziness or lightheadedness. Denies headache. Denies weakness or paralysis or loss of use of either side. Denies problems with gait or speech. Denies sensory loss, numbness, or tingling. Denies seizures. PHYSICAL EXAMINATION: GENERAL: Well-appearing, well-nourished and in no acute distress. HEAD: Atraumatic, normocephalic. EYES: Pupils equal round and reactive to light, extraocular movements intact, conjunctiva are normal. ENT: Nares patent, oropharynx clear without exudates. Moist mucous membranes. NECK: Normal range of motion, supple without lymphadenopathy LUNGS: Breath sounds clear to auscultation bilaterally and equal. No wheezes rales or rhonchi. HEART: Regular rate and rhythm without murmurs ABDOMEN: Soft, nontender, nondistended abdomen. No guarding, no rebound. No masses appreciated. Female : deferred Musculoskeletal: Normal range of motion, no pitting or edema. No cyanosis. Complains of tenderness to back and has a history of low back pain with sciatica. NEUROLOGICAL: Cranial nerves grossly intact. Normal speech, normal gait. Normal sensory, motor exams PSYCH: Normal mood, normal affect. SKIN: Warm, Dry, normal turgor, no rashes or lesions noted. PSYCHIATRIC: Denies anxiety or stress. Denies depression, suicidal ideation, or homicidal ideation. ALL OTHER SYSTEMS REVIEWED AND NEGATIVE. Dictation was performed using [employer] voice recognition software Physical Exam - Vital signs Vitals: Temp Pulse Resp BP Pulse Ox 98.4 F 93 16 126/77 H 100 06/05/18 15:39 06/05/18 15:39 06/05/18 15:39 06/05/18 15:39 06/05/18 15:39 Course - Vital Signs Vital signs: Temp Pulse Resp BP Pulse Ox 97.7 F 84 16 123/87 H 98 06/05/18 19:00 06/05/18 19:00 06/05/18 19:00 06/05/18 19:00 06/05/18 19:00 - Laboratory Result Diagrams: 06/05/18 16:45 06/05/18 16:45 Laboratory results interpreted by me: 06/05/18 06/05/18 16:45 16:45 WBC 10.8 H Glucose 294 H Discharge - Discharge Clinical Impression: Low back pain Qualifiers: Chronicity: chronic Back pain laterality: bilateral Sciatica presence: with sciatica Sciatica laterality: sciatica of right side Qualified Code(s): M54.41 - Lumbago with sciatica, right side Condition: Stable Disposition: HOME, SELF-CARE Instructions: Family Physicians / Practices Additional Instructions: Chronic Back Pain Chronic back pain (pain persisting longer than three months) is a common problem. A medical evaluation can look for herniated disc, arthritis, osteoporosis, tumors, and infections. But at least half the time, there's no obvious treatable cause. Anxiety and depression tend to worsen back pain. Ibuprofen or other anti-inflammatory medicine can help. A heating pad, used for 15-20 minutes at a time, can ease pain. For this type of back pain, narcotic medicines should be avoided. Muscle relaxers are rarely helpful unless you're having spasms. Activity is important. Find an aerobic exercise program that your back can tolerate. Too much rest makes back pain worse. Specific back exercises are usually prescribed to strengthen the back and abdominal muscles. Often, a physical therapist can help. Avoid heavy lifting, working while bent over, or standing with both knees straight. Most back pain patients do better with a firm mattress. If new symptoms of a "herniated disc" (radiation of pain, numbness, or tingling down the back of the leg or weakness in the leg) occur, you should be re-examined. MUSCLE RELAXERS: Muscle relaxing medications are usually prescribed for acute muscle spasm or injury to the neck and back. They are often combined with antiinflammatory pain medication for increased relief. You may stop the muscle relaxer when the pain and stiffness have improved. Start the medication again if spasms recur. Muscle relaxers may cause drowsiness, especially with the first dose. Do not operate machinery or drive while under the effects of the medication. Most muscle relaxers last up to 24 hours. Do not combine the medication with alcohol. ICE PACKS: Apply ice packs frequently against the painful area. Many different schedules are recommended, such as "20 minutes on, 20 minutes off" or "one hour ice, two hours rest." If you need to work, you may need to go longer between ice treatments. You should plan to have the area ice packed AT LEAST one fourth of the time. The ice should be applied over the wrap, tape, or splint, or over a layer of cloth -- not directly against the skin. Some ice bags have a built-in cloth and can be put directly on the skin. WARM PACKS: After approximately two days, apply gentle heat (such as a heating pad or hot water bottle) for about 20 to 30 minutes about every two hours -- at least four times daily. Warmth and elevation will help you make a more rapid recovery , and will ease the pain considerably. Do not use HOT heat, and never apply heat for longer than 30 minutes. The continuous heat can invisibly damage skin and muscles -- even when no burn is seen on the surface. Damaged muscles can make you MORE sore. Toradol Injection You have been given an injection of ketorolac tromethamine (Toradol). This is an excellent, safe drug for pain control. It also has potent antiinflammatory action. You should have significant pain relief within about one hour. Toradol is not addicting and is non-sedating. It does not interfere with driving or work. Call or return if you develop itching, hives, shortness of breath, or rash. Stretching Exercises for the Back The physician has recommended that you begin stretching exercises for your back. These are often used even while the back is painful. However, you should notify the physician if the activities seem to increase your pain. PELVIC TILT: Lie flat on your back with knees bent. Tighten your stomach and buttock muscles so it flattens your lower back against the floor. Hold 10 seconds. Repeat 10 times, twice daily. KNEE RAISE: Lying on the back with knees bent, raise one knee to your chest, then the other. Hold both knees against the chest 10 seconds, then lower one knee at a time. Repeat 10 times, twice daily. PARTIAL TRUNK RAISE: Lie face down, arms at your sides. Keeping your waist on the floor, use your arms raise your chest up. Support yourself on your elbows for 30 seconds. Repeat twice daily, increasing the time to two minutes as you recover. FOLLOW-UP CARE: If you have been referred to a physician for follow-up care, call the physician s office for an appointment as you were instructed or within the next two days. If you experience worsening or a significant change in your symptoms, notify the physician immediately or return to the Emergency Department at any time for re-evaluation. Prescriptions: Ibuprofen [Ibu] 600 mg PO Q8HP PRN #14 tablet PRN Reason: Cyclobenzaprine HCl [Flexeril 10 mg Tablet] 10 mg PO TIDP PRN #15 tab PRN Reason: Forms: Return to Work
--- NOTE | 2018-06-05 18:12 | RADIOLOGY REPORT (SQ) ---
EXAM DESCRIPTION: CTA CHEST COMPLETED DATE/TIME: 06/05/2018 5:57 pm REASON FOR STUDY: pleuritic thoracic pain non tender COMPARISON: June 2016 TECHNIQUE: CT scan of the chest performed using helical scanning technique with dynamic intravenous contrast injection. Images reviewed with lung, soft tissue and bone windows. Reconstructed coronal and sagittal MPR images reviewed. Additional 3 dimensional post-processing performed to develop Maximal Intensity Projection images (VT P). All images stored on PACS. All CT scanners at this facility use dose modulation, iterative reconstruction, and/or weight based d osing when appropriate to reduce radiation dose to as low as reasonably achievable (ALARA). [facility]: Dose Right [facility]: CareDose [facility]: Dose Right [facility]: Teradose 4D [facility]: [employer] CONTRAST TYPE AND DOSE: contrast/concentration: Isovue 350.00 mg/ml; Total Contrast Delivered: 161.0 ml; Total Saline Delivered: 185.0 ml Contrast bolus optimized for the pulmonary arteries. Not diagnostic for the aorta. RENAL FUNCTION: None required. The patient is less than 50 years old. RADIATION DOSE: CT Rad equipment meets quality standard of care and radiation dose reduction techniq ues were employed. CTDIvol: 6.6 - 59.5 mGy. DLP: 2793 mGy-cm. . LIMITATIONS: None. FINDINGS: LUNGS AND PLEURA: No masses, infiltrates, or pneumothorax. No pleural effusions or pleura l calcifications. AORTA AND GREAT VESSELS: No aneurysm. Contrast bolus not optimized for the aorta. HEART: No pericardial effusion. No significant coronary artery calcifications. PULMONARY ARTERIES: No emboli visualized in the main pulmonary arteries or the segmental branches. HILAR AND MEDIASTINAL STRUCTURES: No identified masses or abnormal nodes. HARDWARE: None in the chest. UPPER ABDOMEN: No significant findings. Limited exam. THYROID AND OTHER SOFT TISSUES: No masses. No adenopathy. BONES: No acute or significant finding. 3D MIPS: Confirm above findings. OTHER: No other significant finding. IMPRESSION: NORMAL CTA OF THE CHEST. NO PULMONARY EMBOLI. COMMENT: Quality ID # [id number]: Final reports with documentation of one or more dose reduction techniques (e.g., Automated exposure control, adjustment of the mA and/or kV according to patient size, use of iterative reconstruction technique) TECHNICAL DOCUMENTATION: JOB ID: [id number] [employer]- All Rights Reserved Reading location - IP/workstation name: [email or web address]
[2018-06-05] MEDS ORDERED: ACETAMINOPHEN 325 MG TABLET PO ONE (18:45)
[2018-06-05] MEDS ORDERED: LIDOCAINE 5% (700 MG) TRANSDERMAL ADH..PATCH TP ONE (18:45)
[2018-06-05] MEDS ORDERED: KETOROLAC TROMETHAMINE INJ/PF 30 MG/1 ML SDV IV ONE (18:47)
[2018-06-05 19:07] VITALS: BP 123/87
== END 2018-06-05 19:12 | disposition home or self-care (01) ==
LOC: ER 15:32
DX: M54.41 Lumbago with sciatica, right side (principal); G89.29 Other chronic pain; R07.1 Chest pain on breathing; M25.559 Pain in unspecified hip; M79.606 Pain in leg, unspecified; J34.89 Other specified disorders of nose and nasal sinuses; E66.01 Morbid (severe) obesity due to excess calories; E11.9 Type 2 diabetes mellitus without complications
CPT/HCPCS: 99285; 96374; 36415; 85025; 80053; 71275; J1885

== ENCOUNTER 2018-09-27 16:26 | Emergency (ER) | payer BC, OTHER ==
[2018-09-27 16:36] VITALS: BP 149/92
[2018-09-27] MEDS ORDERED: DEXAMETHASONE SOD PHOS INJ 10 MG/1 ML VIAL IM ONE (17:59)
[2018-09-27] MEDS ORDERED: KETOROLAC TROMETHAMINE 60 MG/2 ML SDV IM ONE (17:59)
[2018-09-27] MEDS ORDERED: LIDOCAINE 5% (700 MG) TRANSDERMAL ADH..PATCH TP ONE (18:00)
--- NOTE | 2018-09-27 18:01 | ER Document Report ---
HPI - HPI Time Seen by Provider: 09/27/18 17:42 Pain Level: 4 Context: Patient is a 38-year-old obese female who presents emergency department with lower back pain and right leg pain. She states that she has had on and off pain for the past 2 weeks she has been seeing her primary care provider and has a referral to physical therapy. She has not seen physical therapy yet because she is waiting for the referral. She states the pain is a sharp pain in her lower back and radiates down to her right leg. She feels like it is a tingling sensation. Last week she was placed on Toradol. She is also been given tizanidine to help with her symptoms. She states that she attempted to see her primary care today, but they did not have an appointment available. - CONSTITUTIONAL Constitutional: DENIES: Fever, Chills - NEURO Neurology: DENIES: Headache - CARDIOVASCULAR Cardiovascular: DENIES: Chest pain - RESPIRATORY Respiratory: DENIES: Trouble Breathing, Coughing - GASTROINTESTINAL Gastrointestinal: DENIES: Abdominal Pain - REPRODUCTIVE Reproductive: DENIES: : - MUSCULOSKELETAL Musculoskeletal: REPORTS: Extremity pain - Right leg pain, Back Pain - Mid - DERM Skin Color: Normal Skin Problems: None Past Medical History - General Information source: Patient - Social History Smoking Status: Never Smoker Chew tobacco use (# tins/day): No Frequency of alcohol use: None Drug Abuse: None Family History: CAD, Thyroid Disfunction Patient has suicidal ideation: No Patient has homicidal ideation: No - Past Medical History Cardiac Medical History: Reports: Hx Hypercholesterolemia Pulmonary Medical History: Endocrine Medical History: Reports: Hx Diabetes Mellitus Type 2. Denies: Hx Graves' Disease, Hx Hyperthyroidism, Hx Hypothyroidism Renal/ Medical History: Reports: Hx Kidney Stones. Denies: Hx End Stage Renal Disease, Hx Ovarian Cysts, Hx Peritoneal Dialysis, Hx Pelvic Inflammatory Disease Malignancy Medical History: Denies: Hx Breast Cancer, Hx Cervical Cancer, Hx Leukemia, Hx Ovarian Cancer GI Medical History: Denies: Hx Crohn's Disease, Hx Gastroesophageal Reflux Disease, Hx Hiatal Hernia, Hx Irritable Bowel, Hx Liver Failure, Hx Pancreatitis, Hx Ulcer Musculoskeletal Medical History: Denies Hx Multiple Sclerosis Psychiatric Medical History: Denies: Hx Dementia, Hx Depression Infectious Medical History: Denies: Hx HIV Past Surgical History: Reports: Hx Cholecystectomy, Hx Gynecologic Surgery - Uterine ablation. Denies: Hx Appendectomy, Hx Bowel Surgery, Hx Section, Hx Colostomy, Hx Coronary Artery Bypass Graft, Hx Gastric Bypass Surgery, Hx Herniorrhaphy, Hx Hysterectomy, Hx Mastectomy, Hx Pacemaker, Hx Tonsillectomy, Hx Tubal Ligation - Immunizations Hx Diphtheria, Pertussis, Tetanus Vaccination: Yes Vertical Provider Document - CONSTITUTIONAL Agree With Documented VS: Yes Exam Limitations: No Limitations General Appearance: No Apparent Distress - INFECTION CONTROL TRAVEL OUTSIDE OF THE [place] IN LAST 30 DAYS: No - HEENT HEENT: Atraumatic - NECK Neck: Normal Inspection - RESPIRATORY Respiratory: Breath Sounds Normal, No Respiratory Distress - CARDIOVASCULAR Cardiovascular: Regular Rhythm Pulses: Normal: Radial, Dorsalis pedis - BACK Back: Normal Inspection - MUSCULOSKELETAL/EXTREMETIES Musculoskeletal/Extremeties: FROM, Tender - Lower back and right leg - NEURO Level of Consciousness: Awake, Alert, Appropriate Motor/Sensory: No Motor Deficit, No Sensory Deficit Deep Tendon Reflexes: 2+ - DERM Integumentary: Warm, Dry Course - Re-evaluation Re-evalutation: 09/27/18 18:01 The patient will receive a one-time dose of Toradol and dexamethasone. She also receive a lidocaine patch. She will not be sent home with narcotic pain medication because she states that she is already sensitive to morphine. She will be given a prescription for lidocaine patches. Verbal discharge instructions were given to the patient. They verbalized understanding. They are stable for discharge. - Vital Signs Vital signs: Temp Pulse Resp BP Pulse Ox 99.2 F 88 20 149/92 H 98 09/27/18 16:34 09/27/18 16:34 09/27/18 16:34 09/27/18 16:34 09/27/18 16:34 Discharge - Discharge Clinical Impression: Right leg pain Chronic back pain Qualifiers: Back pain location: low back pain Back pain laterality: midline Sciatica presence: with sciatica Sciatica laterality: sciatica of right side Qualified Code(s): M54.41 - Lumbago with sciatica, right side Condition: Stable Disposition: HOME, SELF-CARE Instructions: Ice Packs ([facility]), Low Back Pain ([facility]), Warm Packs ([facility]) Additional Instructions: You were seen today in the emergency department for back pain. Your back pain is chronic. Please make sure you follow-up with your physical therapy appointment, as this will help strengthen your back muscles. You may take and acetaminophen 1000 mg every 6 hours as needed for the pain. You may also buy [id number] Aspercreme with lidocaine and apply to the area per box instructions. If you develop a fever greater than 100.4 F, lose bowel or bladder function, are unable to walk, or have any symptoms that are worrisome to you, please return to the emergency department. Below are some back stretching exercises that may help until you see physical therapy. Stretching Exercises for the Back The physician has recommended that you begin stretching exercises for your back. These are often used even while the back is painful. However, you should notify the physician if the activities seem to increase your pain. PELVIC TILT: Lie flat on your back with knees bent. Tighten your stomach and buttock muscles so it flattens your lower back against the floor. Hold 10 seconds. Repeat 10 times, twice daily. KNEE RAISE: Lying on the back with knees bent, raise one knee to your chest, then the other. Hold both knees against the chest 10 seconds, then lower one knee at a time. Repeat 10 times, twice daily. PARTIAL TRUNK RAISE: Lie face down, arms at your sides. Keeping your waist on the floor, use your arms raise your chest up. Support yourself on your elbows for 30 seconds. Repeat twice daily, increasing the time to two minutes as you recover. Prescriptions: Lidocaine [Lidoderm 5% (700 mg) Transdermal Patch] 1 patch TP DAILY #7 adh..patch Forms: Return to Work Referrals: CRYSTAL SALINAS MD [NO LOCAL MD] - Follow up in 3-5 days
== END 2018-09-27 18:13 | disposition home or self-care (01) ==
LOC: ER 16:26
DX: M54.41 Lumbago with sciatica, right side (principal); M79.604 Pain in right leg; E11.9 Type 2 diabetes mellitus without complications
CPT/HCPCS: 99283; 96372; J1885; J1100

== ENCOUNTER 2018-11-30 14:13 | Emergency (ER) | payer OTHER ==
[2018-11-30 14:26] VITALS: BP 141/88
[2018-11-30] MEDS ORDERED: DEXAMETHASONE SOD PHOS INJ 10 MG/1 ML VIAL IM ONE (14:46)
[2018-11-30] MEDS ORDERED: KETOROLAC TROMETHAMINE 60 MG/2 ML SDV IM ONE (14:46)
--- NOTE | 2018-11-30 14:53 | ER Document Report ---
Addendum entered and electronically signed by KISHOR REYNOLDS FNP 11/30/18 16:24: Discharge - Discharge Clinical Impression: Right sciatic nerve pain Condition: Stable Disposition: HOME, SELF-CARE Instructions: Ice Packs ([facility]), Pain Medication Injection ([facility]), Warm Packs ([facility]) Additional Instructions: You were seen today in the emergency department for back pain. Your back pain is most consistent with sciatic nerve pain. You may take ibuprofen 600 mg and acetaminophen 1000 mg every 6 hours as needed for the pain. You may also buy [id number] Aspercreme with lidocaine and apply to the area per box instructions. If you develop a fever greater than 100.4 F, lose bowel or bladder function, are unable to walk, or have any symptoms that are worrisome to you, please return to the emergency department. You may need to be referred to neurosurgery to have your back further evaluated. Prescriptions: Lidocaine [Lidoderm 5% (700 mg) Transdermal Patch] 1 patch TP DAILY PRN #5 adh..patch PRN Reason: Forms: Return to Work Referrals: SONU AHN NP [Primary Care Provider] - 12/02/18 Original Note: HPI - HPI Time Seen by Provider: 11/30/18 14:38 Pain Level: 4 Context: Patient is a 38-year-old female who presents emergency department with a chief complaint of low back pain. She has had this problem for the past couple months. She was seen here in the emergency department in September for the same problem. She states that she is now in physical therapy and has been in physical therapy for the past month. Last night she took some ibuprofen, but only had little relief in her pain. She has not seen her primary care provider recently for her recent pain. She is able to walk. Denies any bladder or bowel dysfunction. Denies any fever. Denies any history of IV drug abuse. She works at [employer]. Past medical history includes diabetes and hypertension, which she takes Janumet and losartan. - CONSTITUTIONAL Constitutional: DENIES: Fever, Chills - EENT EENT: DENIES: Sore Throat - NEURO Neurology: DENIES: Headache, Weakness - CARDIOVASCULAR Cardiovascular: DENIES: Chest pain - RESPIRATORY Respiratory: DENIES: Trouble Breathing, Coughing - GASTROINTESTINAL Gastrointestinal: DENIES: Abdominal Pain, Nausea, Patient vomiting - REPRODUCTIVE Reproductive: DENIES: : - MUSCULOSKELETAL Musculoskeletal: REPORTS: Extremity pain - Right knee, right hip, Back Pain - Right low back. DENIES: Neck Pain, Swelling - DERM Skin Color: Normal Skin Problems: None Past Medical History - Social History Smoking Status: Never Smoker Frequency of alcohol use: None Drug Abuse: None Family History: CAD, Thyroid Disfunction - Past Medical History Cardiac Medical History: Reports: Hx Hypercholesterolemia Pulmonary Medical History: Endocrine Medical History: Reports: Hx Diabetes Mellitus Type 2. Denies: Hx Graves' Disease, Hx Hyperthyroidism, Hx Hypothyroidism Renal/ Medical History: Reports: Hx Kidney Stones. Denies: Hx End Stage Renal Disease, Hx Ovarian Cysts, Hx Peritoneal Dialysis, Hx Pelvic Inflammatory Disease Malignancy Medical History: Denies: Hx Breast Cancer, Hx Cervical Cancer, Hx Leukemia, Hx Ovarian Cancer GI Medical History: Denies: Hx Crohn's Disease, Hx Gastroesophageal Reflux Disease, Hx Hiatal Hernia, Hx Irritable Bowel, Hx Liver Failure, Hx Pancreat itis, Hx Ulcer Musculoskeletal Medical History: Denies Hx Multiple Sclerosis Psychiatric Medical History: Denies: Hx Dementia, Hx Depression Infectious Medical History: Denies: Hx HIV Past Surgical History: Reports: Hx Cholecystectomy, Hx Gynecologic Surgery - Uterine ablation. Denies: Hx Appendectomy, Hx Bowel Surgery, Hx Section, Hx Colostomy, Hx Coronary Artery Bypass Graft, Hx Gastric Bypass Surgery, Hx Herniorrhaphy, Hx Hysterectomy, Hx Mastectomy, Hx Pacemaker, Hx Tonsillectomy, Hx Tubal Ligation - Immunizations Hx Diphtheria, Pertussis, Tetanus Vaccination: Yes Vertical Provider Document - CONSTITUTIONAL Agree With Documented VS: Yes Exam Limitations: No Limitations General Appearance: No Apparent Distress - INFECTION CONTROL TRAVEL OUTSIDE OF THE [place] IN LAST 30 DAYS: No - HEENT HEENT: Atraumatic, Normocephalic, PERRLA - NECK Neck: Normal Inspection - RESPIRATORY Respiratory: Breath Sounds Normal, No Respiratory Distress - CARDIOVASCULAR Cardiovascular: Regular Rate Pulses: Normal: Radial - MUSCULOSKELETAL/EXTREMETIES Musculoskeletal/Extremeties: Tender - Right foot, right buttock, and right knee, No Edema. negative: Eccymosis - NEURO Level of Consciousness: Awake, Alert, Appropriate Motor/Sensory: No Motor Deficit, No Sensory Deficit Deep Tendon Reflexes: 2+ - DERM Integumentary: Warm, Dry Course - Re-evaluation Re-evalutation: 11/30/18 14:56 Differential diagnosis for back pain includes muscle spasm, muscle strain, slipped disc cauda equina syndrome, vertebral fracture, vertebral tumor, epidural abscess, pyelonephritis, or AAA. Based on history and exam, the most likely etiology of the patient's back pain is chronic sciatica. Emergent MRI is not indicated at this time because the patient does not have new weakness, or cauda equina syndrome. Patient does not have bladder or bowel dysfunction. Patient does not have history of IV drug use, therefore, I do not suspect an epidural abscess. Patient does not have recent weight loss or night sweats, and does not have a known history of cancer. Since she is already in physical therapy, I suggested to her to ask her primary care provider for referral out for neurosurgery. She will receive a dose of Decadron, Toradol, and sent home with lidocaine patches. She is in agreement with this plan. Verbal discharge instructions were given to the patient. They verbalized understanding. They are stable for discharge. - Vital Signs Vital signs: Temp Pulse Resp BP Pulse Ox 98.3 F 96 16 141/88 H 99 11/30/18 14:25 11/30/18 14:25 11/30/18 14:25 11/30/18 14:25 11/30/18 14:25 Discharge - Discharge Clinical Impression: Right sciatic nerve pain Condition: Stable Disposition: HOME, SELF-CARE Instructions: Ice Packs ([facility]), Pain Medication Injection ([facility]), Warm Packs ([facility]) Additional Instructions: You were seen today in the emergency department for back pain. Your back pain is most consistent with sciatic nerve pain. You may take ibuprofen 600 mg and acetaminophen 1000 mg every 6 hours as needed for the pain. You may also buy [id number] Aspercreme with lidocaine and apply to the area per box instructions. If you develop a fever greater than 100.4 F, lose bowel or bladder function, are unable to walk, or have any symptoms that are worrisome to you, please return to the emergency department. You may need to be referred to neurosurgery to have your back further evaluated. Prescriptions: Lidocaine [Lidoderm 5% (700 mg) Transdermal Patch] 1 patch TP DAILY PRN #5 adh..patch PRN Reason: Referrals: SONU AHN, [employer] [Primary Care Provider] - Follow up as needed
== END 2018-11-30 15:51 | disposition home or self-care (01) ==
LOC: ER 14:13
DX: M54.41 Lumbago with sciatica, right side (principal); I10 Essential (primary) hypertension; E11.9 Type 2 diabetes mellitus without complications; Z79.84 Long term (current) use of oral hypoglycemic drugs; Z79.899 Other long term (current) drug therapy
CPT/HCPCS: 99283; J1885; J1100

== ENCOUNTER 2018-12-10 11:57 | Emergency (ER) | payer OTHER ==
--- NOTE | 2018-12-10 12:53 | ER Document Report ---
ED Medical Screen (RME) - General Chief Complaint: High Blood Sugar Stated Complaint: BACK PAIN/MILD CHEST PAIN Time Seen by Provider: 12/10/18 12:51 Primary Care Provider: SONU AHN NP [Primary Care Provider] - Follow up as needed Mode of Arrival: Ambulatory Information source: Patient Notes: 38-year-old female presented to ED for complaint of elevated blood sugar chest pain back pain urinary frequency urgency and nausea no vomiting at this time. She does have a history of diabetes type 2. She states she takes Lantus insulin. She also has a history of high blood pressure and cholesterol. She has a history of a hysterectomy and gallbladder removal. She is a [employer]ES [employer] at the [employer]. She states she just started feeling sick today. I have greeted and performed a rapid initial assessment of this patient. A comprehensive ED assessment and evaluation of the patient, analysis of test results and completion of medical decision making process will be conducted by an additional ED providers. Dictation of this chart was performed using voice recognition software; therefore, there may be some unintended grammatical errors. TRAVEL OUTSIDE OF THE [place] IN LAST 30 DAYS: No - Related Data Allergies/Adverse Reactions: hydrocodone Adverse Reaction (Verified 11/30/18 14:17) Vomiting tramadol Adverse Reaction (Verified 11/30/18 14:17) Vomiting Past Medical History - Past Medical History Cardiac Medical History: Reports: Hx Hypercholesterolemia Pulmonary Medical History: Endocrine Medical History: Reports: Hx Diabetes Mellitus Type 2. Denies: Hx Graves' Disease, Hx Hyperthyroidism, Hx Hypothyroidism Renal/ Medical History: Reports: Hx Kidney Stones. Denies: Hx End Stage Renal Disease, Hx Ovarian Cysts, Hx Peritoneal Dialysis, Hx Pelvic Inflammatory Disease Malignancy Medical History: Denies: Hx Breast Cancer, Hx Cervical Cancer, Hx Leukemia, Hx Ovarian Cancer GI Medical History: Denies: Hx Crohn's Disease, Hx Gastroesophageal Reflux Disease, Hx Hiatal Hernia, Hx Irritable Bowel, Hx Liver Failure, Hx Pancreatitis, Hx Ulcer Musculoskeltal Medical History: Denies Hx Multiple Sclerosis, Denies Hx Systemic Lupus Erythematosus Psychiatric Medical History: Denies: Hx Dementia, Hx Depression Infectious Medical History: Denies: Hx HIV Past Surgical History: Reports: Hx Cholecystectomy, Hx Gynecologic Surgery - Uterine ablation. Denies: Hx Appendectomy, Hx Bowel Surgery, Hx Sectio n, Hx Colostomy, Hx Coronary Artery Bypass Graft, Hx Gastric Bypass Surgery, Hx Herniorrhaphy, Hx Hysterectomy, Hx Mastectomy, Hx Pacemaker, Hx Tonsillectomy, Hx Tubal Ligation - Immunizations Hx Diphtheria, Pertussis, Tetanus Vaccination: Yes History of Influenza Vaccine for 04/2017 - 09/2017 Season: Yes Physical Exam - Vital signs Vitals: Temp Pulse Resp BP Pulse Ox 98.0 F 91 17 143/93 H 100 12/10/18 12:22 12/10/18 12:22 12/10/18 12:22 12/10/18 12:22 12/10/18 12:22 Course - Vital Signs Vital signs: Temp Pulse Resp BP Pulse Ox 98.0 F 91 17 143/93 H 100 12/10/18 12:22 12/10/18 12:22 12/10/18 12:22 12/10/18 12:22 12/10/18 12:22 Doctor's Discharge - Discharge Referrals: SONU AHN, [employer] CHLORINE [employer]QUEFACTION [Primary Care Provider] - Follow up as needed
[2018-12-10 13:55] LABS: APPEARANCE,URINE SLIGHTLY-CLOUDY; BILIRUBIN,URINE NEGATIVE (NEGATIVE); COLOR,URINE YELLOW; GLUCOSE, URINE >=500 mg/dL (NEGATIVE); KETONES,URINE NEGATIVE (NEGATIVE); LEUKOCYTE ESTERASE,URINE TRACE (NEGATIVE); NITRITE,URINE NEGATIVE (NEGATIVE); PROTEIN,URINE NEGATIVE (NEGATIVE); URINE SPECIFIC GRAVITY 1.035; UROBILINOGEN,URINE NEGATIVE mg/dL (<2.0)
[2018-12-10] MEDS: NORMAL SALINE 1000 ML 1,000 ML IV PRN ×2 (13:57→15:39)
[2018-12-10 14:16] LABS: ABSOLUTE BASOPHILS # (AUTO) 0.1 10^3/uL (0.0-0.2); ABSOLUTE EOSINOPHILS # (AUTO) 0.2 10^3/uL (0.0-0.6); ABSOLUTE LYMPHOCYTES (AUTO) 2.6 10^3/uL (0.5-4.7); ABSOLUTE MONOCYTES (AUTO) 0.6 10^3/uL (0.1-1.4); ABSOLUTE NEUT (AUTO) 7.8 10^3/uL (1.7-8.2); BASOPHILS % (AUTO) 0.7 % (0-2); EOSINOPHILS % (AUTO) 1.9 % (0-6); HEMATOCRIT 40.1 % (36.0-47.0); HEMOGLOBIN 13.3 g/dL (12.0-15.5); MEAN CORPUSCULAR HEMOGLOBIN 28.9 pg (27.0-33.4); MEAN CORPUSCULAR HGB CONC 33.2 g/dL (32.0-36.0); MEAN CORPUSCULAR VOLUME 87 fl (80-97); MONOCYTES % (AUTO) 5.4 % (3-13); PLATELET COUNT 328 10^3/uL (150-450); RED CELL DISTRIBUTION WIDTH 13.4 % (11.5-14.0); TOTAL CELLS COUNTED % (AUTO) 100 %; WHITE BLOOD COUNT 11.3 10^3/uL (4.0-10.5)
[2018-12-10 14:22] LABS: VENOUS BLOOD HCO3 24.6 mmol/L (20-32); VENOUS BLOOD PCO2 44.5 mmHg (35-63); VENOUS BLOOD PH 7.36 (7.30-7.42)
[2018-12-10 14:38] LABS: ALANINE AMINOTRANSFERASE 29 U/L (9-52); ALBUMIN 4.7 g/dL (3.5-5.0); ALKALINE PHOSPHATASE 135 U/L (38-126); ANION GAP 15 (5-19); ASPARTATE AMINO TRANSFERASE 25 U/L (14-36); BILIRUBIN,DIRECT 0.2 mg/dL (0.0-0.4); BILIRUBIN,TOTAL 0.5 mg/dL (0.2-1.3); BLOOD UREA NITROGEN 7 mg/dL (7-20); CARBON DIOXIDE 26 mmol/L (22-30); CHLORIDE 96 mmol/L (98-107); CREATINE KINASE 189 U/L (30-135); GLUCOSE 334 mg/dL (75-110); LIPASE 132.6 U/L (23-300); POTASSIUM 4.3 mmol/L (3.6-5.0); SODIUM 136.8 mmol/L (137-145); TOTAL PROTEIN 8.2 g/dL (6.3-8.2)
[2018-12-10 14:54] LABS: TROPONIN I < 0.012 ng/mL
--- NOTE | 2018-12-10 16:09 | ER Document Report ---
ED Blood Sugar Problem - General Chief Complaint: High Blood Sugar Stated Complaint: BACK PAIN/MILD CHEST PAIN Time Seen by Provider: 12/10/18 12:51 Primary Care Provider: SONU AHN NP [Primary Care Provider] - Follow up as needed Mode of Arrival: Ambulatory Notes: Patient is an insulin-dependent diabetic who started noticing her mouth being dry and not feeling well this morning. She checked her blood sugar and it was 581. She took her usual Lantus 50 units this morning and also some Metformin that she is prescribed to take. She also takes 50 units every bedtime. Says she has been nauseated but has not vomited. No diarrhea. Has noticed increased urinating. Has some symptoms that makes her think she might have a UTI. Patient recalls coming here about 10 days ago for back pain and receiving an injection of steroids and thinks that may have something to do with her blood sugar being difficult to manage. She has had an occasional chest pain that is mild but not there now. No shortness of breath or difficulty breathing. Has not noticed any fever. Patient has no history of heart disease. But she does have high blood pressure and cholesterol. Non-smoker. TRAVEL OUTSIDE OF THE [place] IN LAST 30 DAYS: No - Related Data Allergies/Adverse Reactions: hydrocodone Adverse Reaction (Verified 11/30/18 14:17) Vomiting tramadol Adverse Reaction (Verified 11/30/18 14:17) Vomiting Past Medical History - General Information source: Patient - Social History Smoking Status: Never Smoker Family History: Reviewed & Not Pertinent, CAD, Thyroid Disfunction Patient has suicidal ideation: No Patient has homicidal ideation: No - Past Medical History Cardiac Medical History: Reports: Hx Hypercholesterolemia, Hx Hypertension Pulmonary Medical History: Endocrine Medical History: Reports: Hx Diabetes Mellitus Type 1, Hx Diabetes Mellitus Type 2 Renal/ Medical History: Reports: Hx Kidney Stones Musculoskeletal Medical History: Past Surgical History: Reports: Hx Cholecystectomy, Hx Gynecologic Surgery - Uterine ablation, Hx Hysterectomy - Immunizations Hx Diphtheria, Pertussis, Tetanus Vaccination: Yes Review of Systems - Review of Systems Notes: REVIEW OF SYSTEMS: CONSTITUTIONAL : Denies fever. EENT: Denies eye, ear, nose or mouth or throat pain or other symptoms. CARDIOVASCULAR: Has had some mild chest pains today. No history of heart disease. RESPIRATORY: Denies cough, chest congestion, or shortness of breath. GASTROINTESTINAL: Denies abdominal pain but has been nauseated, but not vomiting. No diarrhea. GENITOURINARY: Having some urinary frequency as well as some discomfort with urination. MUSCULOSKELETAL: Denies back or neck pain. Denies joint pain or swelling. SKIN: Denies rash or skin lesions. NEUROLOGICAL: Denies LOC or altered mental status. Denies headache. Denies sensory loss or motor deficits. ALL OTHER SYSTEMS REVIEWED AND NEGATIVE. Physical Exam - Vital signs Vitals: Temp Pulse Resp BP Pulse Ox 98.0 F 91 17 143/93 H 100 12/10/18 12:22 12/10/18 12:22 12/10/18 12:22 12/10/18 12:22 12/10/18 12:22 Interpretation: Normal Notes: PHYSICAL EXAMINATION: GENERAL: Well-appearing, in no acute distress. Feels better now after a liter of saline. HEAD: Atraumatic, normocephalic. EYES: Pupils equal round and reactive to light, extraocular movements intact. ENT: oropharynx clear without exudates. Moist mucous membranes. NECK: Normal range of motion, supple. LUNGS: Breath sounds clear and equal bilaterally. HEART: Regular rate and rhythm without murmurs. ABDOMEN: Soft, nontender. No guarding or rebound. No masses. BACK: No tenderness throughout entire back. EXTREMITIES: Normal range of motion without pain. NEUROLOGICAL: Normal speech, normal gait. Normal sensory, motor, and reflex exams. Awake, alert, and oriented x3. Cranial nerves normal. PSYCH: Normal mood, normal affect. SKIN: Warm, dry, no rashes. Course - Re-evaluation Re-evalutation: 12/10/18 16:22 Patient was given 2 L of saline and felt much better after the second liter. Blood sugar now in mid 300s and patient says she is comfortable going home. Patient does not appear to be in ketoacidosis. - Vital Signs Vital signs: Temp Pulse Resp BP Pulse Ox 98.5 F 91 21 H 132/88 H 97 12/10/18 18:00 12/10/18 12:22 12/10/18 18:00 12/10/18 18:00 12/10/18 17:02 - Laboratory Result Diagrams: 12/10/18 13:55 12/10/18 13:55 Laboratory results interpreted by me: 12/10/18 12/10/18 12/10/18 13:20 13:25 13:55 WBC 11.3 H Sodium Chloride Glucose POC Glucose 336 H Alkaline Phosphatase Creatine Kinase Urine Glucose (UA) >=500 H Urine Blood SMALL H Ur Leukocyte Esterase TRACE H 12/10/18 13:55 WBC Sodium 136.8 L Chloride 96 L Glucose 334 H POC Glucose Alkaline Phosphatase 135 H Creatine Kinase 189 H Urine Glucose (UA) Urine Blood Ur Leukocyte Esterase Discharge - Discharge Clinical Impression: Diabetes, Hyperglycemia, Nausea Condition: Stable Disposition: HOME, SELF-CARE Additional Instructions: HYPERGLYCEMIA (HIGH BLOOD SUGAR): You have an abnormally high blood sugar. Not all high blood sugar requires long-term treatment. High blood sugar can be due to medications, , or the stress of illness. (These cases are "borderline diabetes.") If the doctor feels your high blood sugar might resolve with time, you may not require treatment now. It's very important that you follow through, to see if the blood sugar returns to normal levels. Uncontrolled high blood sugar leads to early heart disease, strokes, nerve damage, eye damage, and kidney damage. Call the physician if there is faintness, excess sleepiness, or very rapid breathing. DIABETES: You have an abnormally high blood sugar, suspicious for diabetes. Not all high blood sugar requires long-term treatment. High blood sugar can be due to medications, , or the stress of illness. (These cases are "borderline diabetes.") If the doctor feels your high blood sugar might get better with time, you may not require treatment now. It's very important that you follow through. Uncontrolled high blood sugar leads to early heart disease, strokes, nerve damage, eye damage, and kidney damage. All diabetics should follow a diet designed to control the blood sugar. Overweight diabetics should exercise regularly and lose weight. If this is not sufficient to control the blood sugar, pills or insulin shots are necessary. Younger people who develop diabetes almost always require insulin daily. Home testing of blood sugars or urine sugar is required. Diabetic teaching is available to help you figure insulin doses and monitor the blood sugar. Call the physician if there is faintness, excess sleepiness, or very rapid breathing. If hypoglycemia (LOW blood sugar) develops, symptoms are shakiness, weakness, sweating, and confusion. In this case, you should eat or drink something with sugar at once. INSULIN: Insulin is a natural hormone that lowers blood sugar. Normal blood sugar prevents complications of diabetes. For most diabetics, insulin is the best way to treat the illness. Be sure you know how to measure the insulin correctly. Insulin is measured in "units." There are three types of insulin: N (NPH or long acting), R (regular or short acting), and L (Lente or very long acting). Be sure you are using the right amount of each type. Insulin must be injected into the fat. You can use the abdomen, upper arms , and thighs. Select a different injection site every time. Wipe the site with alcohol before injecting. When first starting insulin, some adjusting of the insulin dose is necessary. Keep a record of each insulin dose and time of injection, and of the blood sugar and the time you test it. Sometimes insulin can make the blood sugar too low. If you become dizzy, sweaty, shaky, or confused, you may be having a hypoglycemic episode. Immediately use juice or some other sweet food. Call the doctor if the symptoms don't go away. ORAL HYPOGLYCEMIC MEDICATION: Oral hypoglycemics are medicines that lower blood sugar in diabetics. They are not effective for younger diabetics who require insulin. Some brands are tolbutamide, Orinase, glipizide, Glucotrol, glyburide, DiaBeta, Glynase, and Micronase. Some medications can increase or decrease the effect of Diabinese. Examples are Clofibrate (Atromid-S), phenylbutazone (Butazolidin), aspirin, sulfonamides, Coumadin, allopurinol (Zyloprim), probenecid (Benemid), acetazolamide (Diamox), beta blockers, steroids, estrogens, Indocin, INH, Levothyroxine, nicotinic acid, Diflucan, Dilantin, and thiazide diuretics. Be sure your doctor knows all the medicines you take, and talk to your doctor before making any changes in your medicines. If you develop symptoms of shakiness, sweats, and lightheadedness, your blood sugar may have gone too low. Eat or drink a small amount of sweet food. If symptoms don't go away, call your doctor. Drink plenty of fluids and keep yourself well-hydrated. I have given you a prescription for Zofran for nausea. Also a note for work for tomorrow. Return to work on Thursday. FOLLOW-UP CARE: If you have been referred to a physician for follow-up care, call the physicians office for an appointment as you were instructed or within the next two days. If you experience worsening or a significant change in your symptoms, notify the physician immediately or return to the Emergency Department at any time for re-evaluation. Return for reevaluation if your symptoms worsen again. Prescriptions: Ondansetron [Zofran Odt 4 mg Tablet] 1 - 2 tab PO Q4H PRN #15 tab.rapdis PRN Reason: For Nausea/Vomiting Forms: Return to Work Referrals: SONU AHN TEACHER CCLC [Primary Care Provider] - Follow up as needed
--- NOTE | 2018-12-10 16:23 | EKG REPORT ---
SEVERITY:- NORMAL ECG - SINUS RHYTHM : Confirmed by: Jj Samuel MD 10-Dec-2018 16:22:39
[2018-12-10 18:03] VITALS: BP 132/88
== END 2018-12-10 18:15 | disposition home or self-care (01) ==
LOC: ER 11:57
DX: E11.65 Type 2 diabetes mellitus with hyperglycemia (principal); R11.0 Nausea; M54.9 Dorsalgia, unspecified; R07.9 Chest pain, unspecified; E78.00 Pure hypercholesterolemia, unspecified; Z87.442 Personal history of urinary calculi; Z88.6 Allergy status to analgesic agent; Z90.49 Acquired absence of other specified parts of digestive tract; Z90.710 Acquired absence of both cervix and uterus
CPT/HCPCS: 93005; 99283; 96360; 96361; 36415; 87086; 82553; 82962; 82550; 83690; 84703; 85025; 87088; 80053; 81001; 84484; 87186; 82803; 93010; J7030